=== PATIENT | male | born 1960 | race Caucasian/White ===

== ENCOUNTER 2020-12-19 09:05 | Outpatient (REF) | payer OTHER, SELFPAY ==
[2020-12-19 10:46] LABS: MANUAL DIFF FLAG NO
[2020-12-19 11:12] LABS: Basophils Percent Auto 0.4 % (0-2); Eosinophils Absolute Auto 0.1 X10*3/uL (0.0-0.4); Eosinophils Percent Auto 0.8 % (0-4); Hematocrit 44.3 % (42-52); Hemoglobin 14.1 g/dl (14.0-18.0); Imm Gran Abs Auto 0.04 X10*3/uL (0.00-0.03); Imm Gran Pct Auto 0.4 % (0.0-0.4); Lymphocytes Absolute Auto 1.4 X10*3/uL (1.2-4.9); Mean Corpuscular HGB Conc 31.8 g/dl (31.0-36.0); Mean Corpuscular Hemoglobin 29.9 pg (27.0-33.0); Mean Corpuscular Volume 94.1 fL (80-98); Mean Platelet Volume 10.1 fL (9.4-12.4); Monocytes Absolute Auto 0.7 X10*3/uL (0.1-1.2); Monocytes Percent Auto 7.3 % (2-11); Neutrophils Absolute Auto 7.1 X10*3/uL (2.0-8.3); Neutrophils Percent Auto 76.1 % (45-73); Platelet Count 244 X10*3/uL (160-400); Red Blood Count 4.71 X10*6/uL (4.60-5.80); Red Cell Distribution Width 12.5 % (11.0-16.0); White Blood Count 9.3 X10*3/uL (4.8-10.8)
[2020-12-19 11:20] LABS: Alanine Aminotransferase 19 U/L (0-40); Albumin Level 4.4 g/dL (3.5-5.0); Alkaline Phosphatase 68 U/L (39-117); Anion Gap 11 (12-20); Aspartate Amino Transferase 18 U/L (5-37); Bilirubin Total 0.6 mg/dL (0.0-1.0); Blood Urea Nitrogen 16 mg/dL (9-16); Calcium 9.5 mg/dL (8.4-10.2); Carbon Dioxide 31 mmol/L (22-29); Chloride 103 mmol/L (96-108); Estimated Glomerular Filt Rate > 60; Glucose Random 115 mg/dL (60-115); Potassium 4.4 mmol/L (3.3-5.1); Sodium 141 mmol/L (135-145)
== END 2020-12-19 09:06 | disposition home or self-care (01) ==
LOC: HO.LAB 09:05
PROVIDERS: PCP Internal Medicine Medical Oncology; Visit Provider Physician Assistant
DX: R10.11 Right upper quadrant pain (principal); R74.01 Elevation of levels of liver transaminase levels; K64.9 Unspecified hemorrhoids; R14.3 Flatulence; Z79.899 Other long term (current) drug therapy
CPT/HCPCS: 36415; 80053; 85025; 99212

== ENCOUNTER → 2021-02-04 07:57 | Outpatient (BNVA) | payer OTHER, SELFPAY | PROVIDERS: Visit Provider Physician Assistant | DX: D12.6 Benign neoplasm of colon, unspecified (principal); R10.9 Unspecified abdominal pain | CPT/HCPCS: 99212 ==

== ENCOUNTER 2021-12-11 08:27 | Outpatient (REF) | payer SELFPAY | END 2021-12-11 08:28 | disposition home or self-care (01) | LOC: HO.HAP 08:27 | PROVIDERS: Visit Provider Internal Medicine Medical Oncology | DX: Z13.89 Encounter for screening for other disorder (principal) ==

== ENCOUNTER 2021-12-28 07:03 | Outpatient (REF) | payer OTHER, SELFPAY ==
[2021-12-28 07:12] LABS: MANUAL DIFF FLAG NO
[2021-12-28 08:04] LABS: Basophils Percent Auto 0.6 % (0-2); Eosinophils Absolute Auto 0.1 X10*3/uL (0.0-0.4); Eosinophils Percent Auto 2.1 % (0-4); Hematocrit 42.3 % (42.0-52.0); Hemoglobin 13.6 g/dl (14.0-18.0); Imm Gran Abs Auto 0.02 X10*3/uL (0.00-0.03); Imm Gran Pct Auto 0.3 % (0.0-0.4); Lymphocytes Absolute Auto 1.9 X10*3/uL (1.2-4.9); Lymphocytes Percent Auto 27.7 % (20-40); Mean Corpuscular HGB Conc 32.2 g/dl (31.0-36.0); Mean Corpuscular Hemoglobin 29.5 pg (27.0-33.0); Mean Corpuscular Volume 91.8 fL (80.0-98.0); Monocytes Absolute Auto 0.5 X10*3/uL (0.1-1.2); Monocytes Percent Auto 6.6 % (2-11); Neutrophils Absolute Auto 4.3 x10*3/uL (2.0-8.3); Neutrophils Percent Auto 62.7 % (45-73); Platelet Count 249 X10*3/uL (160-400); Red Blood Count 4.61 X10*6/uL (4.60-5.80); Red Cell Distribution Width 12.4 % (11.0-16.0); White Blood Count 6.8 X10*3/uL (4.8-10.8)
[2021-12-28 08:21] LABS: Alanine Aminotransferase 20 U/L (0-40); Albumin Level 4.1 g/dL (3.5-5.0); Alkaline Phosphatase 68 U/L (39-117); Anion Gap 10 (12-20); Aspartate Amino Transferase 16 U/L (5-37); Bilirubin Total 0.7 mg/dL (0.0-1.0); Blood Urea Nitrogen 15 mg/dL (9-16); Calcium 9.6 mg/dL (8.4-10.2); Carbon Dioxide 32 mmol/L (22-29); Chloride 104 mmol/L (96-108); Cholesterol 185 mg/dL; Estimated Glomerular Filt Rate > 60; Glucose Fasting 115 mg/dL (60-99); HDL Cholesterol 52 mg/dL; LDL Cholesterol Calculated 115 mg/dl; Potassium 4.1 mmol/L (3.3-5.1); Sodium 142 mmol/L (135-145); Total Protein 6.8 g/dL (6.5-8.0); Triglycerides 94 mg/dL
[2021-12-28 08:29] LABS: Estimated Average Glucose 120 mg/dL; Hemoglobin A1c % 5.8 %
[2021-12-28 09:25] LABS: Creatinine Urine 136.24 mg/dL; Microalbum/Creatinine Ratio Ur 6.6 ug/mg cr
== END 2021-12-28 07:04 | disposition home or self-care (01) ==
LOC: HO.LAB 07:03
PROVIDERS: PCP Internal Medicine Medical Oncology; Visit Provider Internal Medicine Medical Oncology
DX: I10 Essential (primary) hypertension (principal); R73.9 Hyperglycemia, unspecified; E78.5 Hyperlipidemia, unspecified
CPT/HCPCS: 36415; 80053; 80061; 82043; 83036; 85025

== ENCOUNTER 2022-02-08 07:16 | Outpatient (REF) | payer OTHER, SELFPAY ==
[2022-02-08 08:56] LABS: Free T4 (Free Thyroxine) 1.01 ng/dL (0.71-1.85); Thyroid Stimulating Hormone 0.67 uIU/mL (0.32-4.0)
== END 2022-02-08 07:17 | disposition home or self-care (01) ==
LOC: HO.LAB 07:16
PROVIDERS: PCP Internal Medicine Medical Oncology; Visit Provider Internal Medicine Medical Oncology
DX: I10 Essential (primary) hypertension (principal); N40.1 Benign prostatic hyperplasia with lower urinary tract symptoms; E78.5 Hyperlipidemia, unspecified
CPT/HCPCS: 36415; 84439; 84443

== ENCOUNTER 2022-04-19 07:01 | Outpatient (REF) | payer OTHER, SELFPAY ==
[2022-04-19 07:14] LABS: MANUAL DIFF FLAG NO
[2022-04-19 07:52] LABS: Basophils Percent Auto 0.5 % (0-2); Eosinophils Absolute Auto 0.2 X10*3/uL (0.0-0.4); Eosinophils Percent Auto 2.3 % (0-4); Hematocrit 43.1 % (42.0-52.0); Hemoglobin 14.1 g/dl (14.0-18.0); Imm Gran Abs Auto 0.01 X10*3/uL (0.00-0.03); Imm Gran Pct Auto 0.2 % (0.0-0.4); Lymphocytes Percent Auto 30.5 % (20-40); Mean Corpuscular HGB Conc 32.7 g/dl (31.0-36.0); Mean Corpuscular Hemoglobin 30.3 pg (27.0-33.0); Mean Corpuscular Volume 92.5 fL (80.0-98.0); Mean Platelet Volume 10.2 fL (9.4-12.4); Monocytes Absolute Auto 0.5 X10*3/uL (0.1-1.2); Monocytes Percent Auto 7.1 % (2-11); Neutrophils Percent Auto 59.4 % (45-73); Platelet Count 220 X10*3/uL (160-400); Red Blood Count 4.66 X10*6/uL (4.60-5.80); Red Cell Distribution Width 12.6 % (11.0-16.0); White Blood Count 6.7 X10*3/uL (4.8-10.8)
[2022-04-19 08:40] LABS: Alanine Aminotransferase 18 U/L (0-40); Albumin Level 4.2 g/dL (3.5-5.0); Alkaline Phosphatase 63 U/L (39-117); Anion Gap 14 (12-20); Aspartate Amino Transferase 21 U/L (5-37); Bilirubin Total 0.7 mg/dL (0.0-1.0); Blood Urea Nitrogen 17 mg/dL (9-16); Calcium 8.9 mg/dL (8.4-10.2); Carbon Dioxide 30 mmol/L (22-29); Chloride 101 mmol/L (96-108); Cholesterol 208 mg/dL; Estimated Glomerular Filt Rate > 60; Glucose Fasting 113 mg/dL (60-99); HDL Cholesterol 53 mg/dL; LDL Cholesterol Calculated 128 mg/dl; Potassium 4.3 mmol/L (3.3-5.1); Sodium 141 mmol/L (135-145); Total Protein 6.9 g/dL (6.5-8.0); Triglycerides 137 mg/dL
[2022-04-19 09:01] LABS: Prostate Specific Antigen 1.83 ng/mL (<0.05-4.0)
== END 2022-04-19 07:02 | disposition home or self-care (01) ==
LOC: HO.LAB 07:01
PROVIDERS: PCP Internal Medicine Medical Oncology; Visit Provider Internal Medicine Medical Oncology
DX: I10 Essential (primary) hypertension (principal); N40.1 Benign prostatic hyperplasia with lower urinary tract symptoms; E78.5 Hyperlipidemia, unspecified; Z12.5 Encounter for screening for malignant neoplasm of prostate
CPT/HCPCS: 36415; 80053; 80061; 84153; 85025

== ENCOUNTER 2022-11-28 23:05 | Emergency (ER) | payer OTHER, SELFPAY ==
[2022-11-28 23:40] VITALS: BP 163/73; PULSE 70; RESP 16; TEMP 36.6; O2SAT 96; BMI 23.0
--- NOTE | 2022-11-29 02:18 | PC.NURSE ---
Pt presents for evaluation of reddened areas on both elbows that is itchy. Has an ongoing complaint of red spots on his anterior torso for approximatley 1 yr. Has been to his PCP for evaluation and has an appt with Derm set up for December 16. Has been applying Triamcinolone Acetone cream to the affected areas without change. Has also completed a recent course of doxycycline with no change. Denies any other complaints/concerns. No known contact with any inscects or ticks.
--- NOTE | 2022-11-29 02:33 | ED.SKABFB ---
HPI - Skin/Abscess/Foreign Bdy General Chief complaint: Skin/Abscess/Foreign Body Stated complaint: Red spots on elbow and chest Time Seen by Provider: 11/29/22 02:05 Source: patient Mode of arrival: ambulatory Limitations: no limitations History of Present Illness HPI narrative: Patient came here with chronic rash on his elbow and trunk area seen his PCP on triamcinolone steroid cream. Plan to see insurance case manager has rash on the elbow which is more red no itching Related Data Home Medications Medication Instructions Recorded Confirmed tamsulosin 0.4 mg capsule 0.4 mg PO DAILY 12/19/20 02/04/21 Previous Rx's Medication Instructions Recorded hydrocortisone 2.5 % topical cream 1 appl [place] BID PRN hemorrhoids #30 12/19/20 with perineal applicator grams (Proctozone-HC) docusate sodium 100 mg capsule 200 mg PO BEDTIME 30 days #60 caps 06/07/21 (Colace) methylcellulose (laxative) 500 mg 1,000 mg PO DAILY 30 days #60 tabs 06/07/21 tablet simethicone 125 mg chewable tablet 125 mg PO TID-QID PRN abdominal 06/07/21 (Gas Relief (simethicone)) distention #90 tabs tacrolimus 0.03 % topical ointment 1 appl topical BID #30 grams 11/29/22 Allergies Allergy/AdvReac Type Severity Reaction Status Date / Time bee pollen [BEE STINGS] AdvReac Severe Anaphylaxis Verified 11/28/22 23:53 Review of Systems Review of Systems: Yes all other systems are reviewed and are negative PMFSH Past Medical History Medical History Abdominal pain Flatulence Hemorrhoids Tubular adenoma of colon Social History Social History Household Members: None Alcohol intake: never Advance Directives: No Advance Directives Information Provided: Yes Current occupational status: employed Current occupation: [employer] Physical Exam Vital Signs: Vital Signs: Last Vital Signs Temp 97.7 F 11/29/22 02:38 Pulse 54 11/29/22 02:38 Resp 19 11/29/22 02:38 BP 159/91 H 11/29/22 02:38 Pulse Ox 99 11/29/22 02:38 O2 Del Method Room Air 11/29/22 02:38 BMI result Body Mass Index 23.0 Appearance: Alert. Oriented X3. No acute distress. ENT: Pharynx normal. Oral Mucosa moist Neck: Normal inspection. Neck supple. CVS: Normal heart rate and rhythm. Pulses normal. Respiratory: No respiratory distress. Equal air entry bilateral, no wheezing/rales/rhonchi Skin: Skin warm and dry. Normal skin color. Normal skin turgor. Lichen planus rash on the trunk and the elbow Extremities: No lower extremity edema. Neuro: Oriented X 3. Medical Decision Making Medical Decision Making [facility] Narrative: Patient with chronic dermatitis/lichen planus rash for discharge patient on tacrolimus ointment along with advised to continue triamcinolone on fresh erythematous area patient is supposed to follow-up with insurance case manager Discharge Plan Discharge Clinical Impression: Lichen planus Patient Disposition: Home, Self-Care Instructions: Dermatitis (ED) Additional Instructions: Likely you have lichen planus rash on your chest Apply the ointment as prescribed twice daily on the old lesions Use triamcinolone ointment which was provided by the PCP on fresh red lesions twice a day till heels Prescriptions: New tacrolimus 0.03 % ointment 1 appl topical BID Qty: 30 0RF No Action simethicone [Gas Relief (simethicone)] 125 mg tablet,chewable 125 mg PO TID-QID PRN (Reason: abdominal distention) Qty: 90 3RF docusate sodium [Colace] 100 mg capsule 200 mg PO BEDTIME 30 Days Qty: 60 3RF methylcellulose (laxative) 500 mg tablet 1,000 mg PO DAILY 30 Days Qty: 60 3RF tamsulosin 0.4 mg capsule 0.4 mg PO DAILY hydrocortisone [Proctozone-HC] 2.5 % cream with perineal applicator 1 appl VA BID PRN (Reason: hemorrhoids) Qty: 30 3RF Rx Instructions: apply VA BID prn
[2022-11-29 02:38] VITALS: BP 159/91; PULSE 54; RESP 19; TEMP 36.5; O2SAT 99
== END 2022-11-29 03:01 | disposition home or self-care (01) ==
PROVIDERS: Emergency Provider Internal Medicine; PCP Internal Medicine Medical Oncology
DX: L43.9 Lichen planus, unspecified (principal)
CPT/HCPCS: 99283; 99284

== ENCOUNTER 2023-03-04 07:33 | Outpatient (AMB) | payer OTHER, SELFPAY ==
--- NOTE | 2023-03-04 07:44 | A.OFFVIS_ITS ---
Intake Vital Signs 03/04/23 07:58 Height 6 ft 1 in Weight 171 lb BMI 22.6 BP 121/69 Blood Pressure Location Lt brachial Position Sitting Pulse 66 Intake Visit Reasons: follow up Intake Note: Follow up for abdominal pain. Patient cc: diarrhea on and off, gassy after eating, bloody hemorrhoids, patient needed suppositories to help with hemorrhoids. Straddle Bug Required: No Accompanied by: Self / Same As Patient Allergies bee pollen [BEE STINGS] Adverse Reaction (Severe, Verified 03/04/23 07:53) Anaphylaxis HPI HPI Comments History of Present Illness Details A 62 y/o male hx adenomas f/u with hemorrhoidal flare-he has been using rectal screen relief however requesting to have hemorrhoid removed He continues to have a lot of gas he is unsure what foods exactly in a worsen his symptoms. Occasional diarrhea however is able to manage it okay- His appetite is good Keeps himself busy he works 2 jobs He has no nausea, vomiting hematemesis, hematochezia fever chills Colonoscopy 2019- 3 adenomas- repeat 3 years [facility] Medical History Abdominal pain Flatulence Hemorrhoids Tubular adenoma of colon Social History Household Members: None Alcohol intake: never Current occupational status: employed Current occupation: [employer] Review of Systems Const All systems reviewed & are unremarkable except as noted in HPI and below Card Denies chest pain and Denies dyspnea Resp Denies dyspnea GI Denies abdominal pain, Reports bloating, Denies hematochezia, Reports excessive flatus, Denies heartburn, Denies nausea, Denies vomiting and Reports other (Hemorrhoids) Psych Reports anxiety Physical Exam Vital Signs: Last Vital Signs Pulse 66 03/04/23 07:58 BP 121/69 03/04/23 07:58 BMI result Body Mass Index 22.6 Const General: cooperative, healthy appearing, comfortable and no acute distress Orientation/consciousness: patient oriented x3 Limitations: no limitations Eyes Sclerae: sclerae normal Resp Effort & Inspection: normal respiratory effort and able to speak in complete sentences Auscultation: clear to auscultation bilaterally Cardio Rate: regular rate Rhythm: regular rhythm Heart sounds: S1 normal heart sound present and S2 normal heart sound present GI Palpation (GI): Soft to palpation and nontender Auscultation: normal bowel sounds Skin General skin exam: no rashes or lesions noted Neuro General: patient oriented x3 Extrem General: Yes full ROM Psych Appearance: grossly normal and well kempt Mental Status: mental status grossly normal Speech and movement: Normal speech and movement present and Clear speech present Affect: Anxious affect present Attitude: cooperative Thought process: Normal thought process present Thought content: Normal thought content present Results Reviewed Results Reviewed: 2019-Dr. Mcclendon 3 [facility] 2020 Diagnosis A.? Stomach, antrum, biopsy:? Antral-type mucosa with mild chronic inactive inflammation; no Helicobacter organisms seen. B.? Esophagus, distal, biopsy: - Cardiofundic-type mucosa with mild chronic inactive inflammation; no intestinal metaplasia seen. - No squamous epithelium seen. C.? Esophagus, proximal, biopsy:? Squamous epithelium within normal limits; no inflammation seen. COMMENT: Diagnostic features of eosinophilic esophagitis are not seen. Assessment & Plan Assessment & Plan (1) Hemorrhoids: Comment: Very pleasant Gent, Avoid straining, maintain high-fiber diet, Proctozone Surgical referral placed Code(s): K64.9 - Unspecified hemorrhoids (2) Tubular adenoma of colon: Comment: Colonoscopy 04/2020 shows 3 adenomas repeat colonoscopy 3 years [address] Mcclendon Code(s): D12.6 - Benign neoplasm of colon, unspecified (3) Flatulence: Comment: Simethicone, avoid culprits Code(s): R14.3 - Flatulence Plan: FODMAP literature given Plan Please call [phone]- if pt not available- please leave detailed call back info- TY- Colonoscopy- due-3 year REPEAT - Dr. MCCLENDON- MG Orders: Orders Colonoscopy - GI Use Only Today D12.6 - Benign neoplasm of colon, unspecified, K64.9 - Unspecified hemorrhoids Referrals General Surgery Referral K64.9 - Unspecified hemorrhoids Medications: New bisacodyl (Dulcolax (bisacodyl)) Take 4 tablets by mouth at 12:00pm the day before your procedure. 20 mg (4 x 5 mg) PO ONCE 1 day 4 tabs 0RF colonoscopy prep Z12.11 - Encounter for screening for malignant neoplasm of colon polyethylene glycol 3350 (Miralax) Take as directed by mouth the day before your procedure. 238 grams PO ONCE 1 day 238 grams 0RF polyethylene glycol 3350 (Miralax) 17 grams PO DAILY 30 days 510 grams 6RF Refilled hydrocortisone 2.5% (Proctozone-HC) apply [place] BID prn 1 appl [place] BID PRN 30 grams 3RF hemorrhoids simethicone (Gas Relief (simethicone)) 125 mg PO TID-QID PRN 90 tabs 3RF abdominal distention Patient Instructions: A somewhat anxious very pleasant 62 y/o male hx colon polyps- due for repeat colonoscopy- MG prep info given Avoid straining with hemorrhoids Surgical referral placed FODMAP Encouraged to call questions or concerns Appreciate the opportunity assist in care this pleasant Gent Coding Level of Care Code Est Pt Level 3 (02787) Diagnoses Hemorrhoids K64.9 Tubular adenoma of colon D12.6 Flatulence R14.3 Time Spent (min) 35
[2023-03-04 07:58] VITALS: BP 121/69; PULSE 66; BMI 22.6
== END 2023-03-04 08:58 | disposition home or self-care (01) ==
PROVIDERS: PCP Internal Medicine Medical Oncology; Visit Provider Physician Assistant
DX: K64.9 Unspecified hemorrhoids (principal); D12.6 Benign neoplasm of colon, unspecified; R14.3 Flatulence
CPT/HCPCS: 99213

== ENCOUNTER → 2023-03-04 07:33 | Outpatient (BNVA) | payer OTHER, SELFPAY | PROVIDERS: PCP Internal Medicine Medical Oncology; Visit Provider Physician Assistant | DX: D12.6 Benign neoplasm of colon, unspecified (principal); K64.9 Unspecified hemorrhoids; R14.3 Flatulence | CPT/HCPCS: 99212 ==

== ENCOUNTER 2023-04-11 07:05 | Outpatient (REF) | payer OTHER, SELFPAY ==
[2023-04-11 07:26] LABS: MANUAL DIFF FLAG NO
[2023-04-11 07:34] LABS: Basophils Percent Auto 0.4 % (0-2); Eosinophils Absolute Auto 0.2 X10*3/uL (0.0-0.4); Hematocrit 43.7 % (42.0-52.0); Hemoglobin 14.2 g/dl (14.0-18.0); Imm Gran Abs Auto 0.01 X10*3/uL (0.00-0.03); Imm Gran Pct Auto 0.1 % (0.0-0.4); Lymphocytes Absolute Auto 1.9 X10*3/uL (1.2-4.9); Lymphocytes Percent Auto 26.9 % (20-40); Mean Corpuscular HGB Conc 32.5 g/dl (31.0-36.0); Mean Corpuscular Hemoglobin 30.4 pg (27.0-33.0); Mean Corpuscular Volume 93.6 fL (80.0-98.0); Mean Platelet Volume 9.5 fL (9.4-12.4); Monocytes Absolute Auto 0.5 X10*3/uL (0.1-1.2); Monocytes Percent Auto 7.4 % (2-11); Neutrophils Absolute Auto 4.3 x10*3/uL (2.0-8.3); Neutrophils Percent Auto 62.2 % (45-73); Platelet Count 257 X10*3/uL (160-400); Red Blood Count 4.67 X10*6/uL (4.60-5.80); Red Cell Distribution Width 12.6 % (11.0-16.0); White Blood Count 6.9 X10*3/uL (4.8-10.8)
[2023-04-11 08:33] LABS: Alanine Aminotransferase 15 U/L (0-40); Alkaline Phosphatase 64 U/L (39-117); Anion Gap 12 (12-20); Aspartate Amino Transferase 17 U/L (5-37); Bilirubin Total 0.7 mg/dL (0.0-1.0); Blood Urea Nitrogen 19 mg/dL (9-16); Calcium 9.2 mg/dL (8.4-10.2); Carbon Dioxide 31 mmol/L (22-29); Chloride 104 mmol/L (96-108); Cholesterol 212 mg/dL (<200); Estimated Glomerular Filt Rate > 60; Glucose Fasting 109 mg/dL (60-99); HDL Cholesterol 57 mg/dL (>40); LDL Cholesterol Calculated 138 mg/dL (<100); Sodium 143 mmol/L (135-145); Total Protein 6.6 g/dL (6.5-8.0); Triglycerides 89 mg/dL (<150)
[2023-04-11 08:56] LABS: Prostate Specific Antigen 2.85 ng/mL (<0.05-4.0)
== END 2023-04-11 07:06 | disposition home or self-care (01) ==
LOC: HO.LAB 07:05
PROVIDERS: PCP Internal Medicine Medical Oncology; Visit Provider Internal Medicine Medical Oncology
DX: Z12.5 Encounter for screening for malignant neoplasm of prostate (principal); I10 Essential (primary) hypertension; N40.1 Benign prostatic hyperplasia with lower urinary tract symptoms; E78.5 Hyperlipidemia, unspecified
CPT/HCPCS: 36415; 80053; 80061; 84153; 85025

== ENCOUNTER 2023-05-14 08:24 | Day surgery (SDC) | payer OTHER, SELFPAY ==
[2023-05-12 12:43] VITALS: BMI 22.6
--- NOTE | 2023-05-13 11:40 | HO.ANESPROP2 ---
Documented by User: Pippa Becker NP 05/13/23 11:41 HPI - Anesthesia Eval Consult details Narrative: 63yo M for Colonoscopy PMFSH Active Problems Active Problems: All Active Problems (Updated 03/04/23 @ 08:54 by Juanita Cheney PA-C) Tubular adenoma of colon (Acute) Abdominal pain (Acute) Flatulence (Acute) Hemorrhoids (Acute) Past Medical History Medical History Hx of fracture of femur Hx of fracture of leg Tubular adenoma of colon Abdominal pain Flatulence Hemorrhoids Surgical History Surgical History History of ankle surgery History of surgery on lower extremity Hx of colonoscopy Social History Social History Household Members: None Alcohol intake: never Patient Tobacco Use Status: Former Tobacco user Are you DNR?: No Advance Directives: No Advance Directives Information Provided: Yes Nutrition Risks: No Nutritional Risk Current occupational status: employed Current occupation: [employer] Allergies Allergy/AdvReac Type Severity Reaction Status Date / Time bee pollen [BEE STINGS] AdvReac Severe Anaphylaxis Verified 05/14/23 09:35 Home Medications Medication Instructions Recorded Confirmed Last Taken Type tamsulosin 0.4 mg capsule 0.4 mg PO DAILY 12/19/20 05/14/23 Unknown History Exam Exam Date and Time: May 13, 2023 1140 Height,Weight and Vital Signs: Height 6 ft 1 in Weight 77.564 kg Pertinent Lab Results Pertinent Lab Results: Laboratory Tests 04/11/23 07:24 WBC 6.9 Hgb 14.2 Hct 43.7 Plt Count 257 Sodium 143 Potassium 4.0 Chloride 104 Carbon Dioxide 31 H BUN 19 H Creatinine 0.89 Assessment and Plan Assessment Anesthesia Assessment: Chart Reviewed Documented by User: Leonila Hill MD 05/14/23 10:13 [facility] Past Medical History Medical History Hx of fracture of femur Hx of fracture of leg Tubular adenoma of colon Abdominal pain Flatulence Hemorrhoids Family History Family history of problems with anesthesia: No Surgical History Surgical History History of ankle surgery History of surgery on lower extremity Hx of colonoscopy History of Problems with Anesthesia: No Social History Social History Household Members: None Alcohol intake: never Patient Tobacco Use Status: Former Tobacco user Are you DNR?: No Advance Directives: No Advance Directives Information Provided: Yes Nutrition Risks: No Nutritional Risk Current occupational status: employed Current occupation: [employer] Allergies Allergy/AdvReac Type Severity Reaction Status Date / Time bee pollen [BEE STINGS] AdvReac Severe Anaphylaxis Verified 05/14/23 09:35 Home Medications Medication Instructions Recorded Confirmed Last Taken Type tamsulosin 0.4 mg capsule 0.4 mg PO DAILY 12/19/20 05/14/23 Unknown History Exam Airway Mallampati Class: II TM Dist: >3cm Heart: rrr Lungs: cta Assessment and Plan Assessment Anesthesia Assessment: Anesthesia Plan Discussed Final Anesthetic Review Family History of Problems with Anesthesia: No History of Problems with Anesthesia: No NPO: Yes ASA Class: II Final Preanesthetic Review: No Changes in Pt Med Stat, Meds/Allgs Chart Reviewed, Consent Obtained/Reviewed and Anes Risks/Benef Reviewed Patient Risk: Low Procedure Risk: Low Anesthetic Plan Anesthetic Plan: MAC: Disposition: Standard PACU
[2023-05-14] MEDS: Lactated Ringers 1,000 ML 100 ML IVCONT (09:22)
--- NOTE | 2023-05-14 09:24 | MHC.SHP ---
Pre-Procedural Eval Section A Date of Service: 05/14/23 Section B Chief Complaint: Benign neoplasm of colon,hemorrhoids,flatulence Relevant Family History (Specify if Yes): No Relevant Social History: None Present Medications: see Short Stay Collaborative assessment Medical History: Significant History (Hx of fracture of femur Hx of fracture of leg Tubular adenoma of colon Abdominal pain Flatulence Hemorrhoids) History of Previous Operations: Relevant previous surgery/procedure and date(s) (History of ankle surgery History of surgery on lower extremity Hx of colonoscopy) Allergies: Allergies Allergy/AdvReac Type Severity Reaction Status Date / Time bee pollen [BEE STINGS] AdvReac Severe Anaphylaxis Verified 03/04/23 07:53 Review of Systems Sugical H&P ROS: Negative: Constitution, Cardiovascular, Respiratory, Neurological, Psychiatric, Hem-Onc, Allergic/Immunologic, Gastrointestinal, Genitourinary, Musculoskeletal, Integumentary, Endocrine and Eyes/Ears/Nose/Throat Exam Surgical H&P Exam: Normal: HEENT, Normal: Heart, Normal: Lungs, Normal: Extremities, Normal: Abdomen, Normal: Skin and Normal: Neurological Plan Diagnosis/Plan: Unchanged I have reviewed the history and physical and performed a pertinent physical examination on my patient. No changes have occurred unless specified. Time Spent With Patient Time: Total time managing care of this patient today ____ minutes.
[2023-05-14 09:32] VITALS: BP 159/87; PULSE 68; RESP 18; TEMP 36.6; O2SAT 100
--- NOTE | 2023-05-14 10:25 | P.OP_ITS ---
Operative Note Operative Note Date of Service: 05/14/23 Narrative: Operative Information Procedure Description: Colonoscopy Indication: hx of colon polyps Anesthesia: MAC COLONOSCOPY Instrument: Olympus variable stiffness pediatric scope 190L Colonoscopy Monitoring: Vital signs and clinical assessment, continuous EKG monitoring, Pulse oximetry, Carbon Dioxide monitoring and blood pressure monitoring were done throughout the procedure. Colon withdrawal time was 9 minutes. Procedure: The patient was placed in the left lateral decubitis position and pre-procedure medications were administered. After a digital rectal examination of the ano-rectum, the video colonoscope was inserted into the rectum and advanced through the colon to the cecum/TI. The colonoscope was slowly withdrawn in a retrograde panoramic fashion and the colon mucosa was carefully examined including a retroflexed view of the rectum. Findings and interventions are described below. Procedure Difficulty: easy Findings: Terminal Ileum-normal Cecum: x 2 sessile polyps 10-12 mm removed with cold snare, one area with oozing, and clip applied with hemostasis Ascending Colon: x 2 sessile polyps 10 mm noted, one removed with cold forceps and the other with cold snare Transverse Colon -normal Descending Colon:normal Sigmoid Colon: moderate diverticulosis Rectum: Retroflexion with small internal hemorrhoids, grade I Anorectum - normal Colon preparation: [place] Bowel Preparation Scale Right colon; 2 Transverse colon: 2 Left colon; 2 (0 = Unprepared colon segment with mucosa not seen due to solid stool that cannot be cleared. 1 = Portion of mucosa of the colon segment seen, but other areas of the colon segment not well seen due to staining, residual stool and/or opaque liquid. 2 = Minor amount of residual staining, small fragments of stool and/or opaque liquid, but mucosa of colon segment seen well. 3 = Entire mucosa of colon segment seen well with no residual staining, small fragments of stool or opaque liquid) Impression and Post Procedure Diagnosis: polyps internal hemorrhoids diverticular disease Plan: High fiber diet leaflet Avoid straining at stool, epsom salts and sitz bath, anusol supps or cream Repeat Colonoscopy in 2-3 years or earlier if clinically indicated Above findings were reviewed with the patient and relevant handouts were provided if indicated.
[2023-05-14 10:55] VITALS: BP 99/65; PULSE 55; RESP 17; TEMP 36.6; O2SAT 96
[2023-05-14 11:10] VITALS: BP 141/79; PULSE 60; RESP 16; O2SAT 99
[2023-05-14 11:25] VITALS: BP 137/77; PULSE 61; RESP 14; TEMP 36.4; O2SAT 99
== END 2023-05-14 11:48 | disposition home or self-care (01) ==
PROVIDERS: PCP Internal Medicine Medical Oncology; Visit Provider Internal Medicine Gastroenterology
PROC: 0DJD8ZZ Inspection of Lower Intestinal Tract, Via Natural or Artificial Opening Endoscopic (ICD-10-PCS; CPT 45378; principal; 2023-05-14 10:50)
DX: Z12.11 Encounter for screening for malignant neoplasm of colon (principal); Z86.010 Personal history of colon polyps; D12.0 Benign neoplasm of cecum; D12.2 Benign neoplasm of ascending colon; K57.30 Diverticulosis of large intestine without perforation or abscess without bleeding; K64.0 First degree hemorrhoids; R14.3 Flatulence
CPT/HCPCS: 45385; 45380; 88305

== ENCOUNTER → 2023-05-14 08:24 | Outpatient (BNV) | payer OTHER, SELFPAY | PROVIDERS: PCP Internal Medicine Medical Oncology; Visit Provider Internal Medicine Gastroenterology | DX: Z12.11 Encounter for screening for malignant neoplasm of colon (principal); Z86.010 Personal history of colon polyps; D12.0 Benign neoplasm of cecum; D12.2 Benign neoplasm of ascending colon; K57.30 Diverticulosis of large intestine without perforation or abscess without bleeding; K64.0 First degree hemorrhoids | CPT/HCPCS: 45380; 45385 ==

== ENCOUNTER 2023-05-28 07:44 | Outpatient (AMB) | payer OTHER, SELFPAY ==
[2023-05-28 07:58] VITALS: BP 141/85; PULSE 71; BMI 22.7
--- NOTE | 2023-05-28 07:58 | A.OFFVIS_ITS ---
Intake Vital Signs 05/28/23 07:58 Height 6 ft 1 in Weight 172 lb BMI 22.7 BP 141/85 H Blood Pressure Location Lt brachial Position Sitting Pulse 71 Intake Visit Reasons: S/p colon- Cruz Intake Note: Nicholas presents in the office as a follow up colonoscopy. CC: He states he is okay since his procedure. He does have some questions. He wants to know about the clips that were placed in! Deck Worker Required: No Allergies bee pollen [BEE STINGS] Adverse Reaction (Severe, Verified 05/28/23 07:59) Anaphylaxis Medication List - Last Reconciled 05/28/23 by Juanita Cheney PA-C docusate sodium (Colace) 200 mg (2 x 100 mg) PO BEDTIME 30 days hydrocortisone 2.5% (Proctozone-HC) 1 appl [place] BID PRN tacrolimus 0.03% 1 appl topical BID tamsulosin 0.4 mg PO DAILY HPI HPI Comments History of Present Illness Details A pleasant 63-year-old Gent follows up after recent colonoscopy with polypectomy. Many questions in regard to procedure Reviewed procedure report, pathology as well as recommendations He has no GI or general complaints [facility] Medical History Hx of fracture of femur Hx of fracture of leg Tubular adenoma of colon Abdominal pain Flatulence Hemorrhoids Surgical History History of ankle surgery History of surgery on lower extremity Hx of colonoscopy Social History Household Members: None Alcohol intake: never Patient Tobacco Use Status: Former Tobacco user Current occupational status: employed Current occupation: [employer] Physical Exam Vital Signs: Last Vital Signs Pulse 71 05/28/23 07:58 BP 141/85 H 05/28/23 07:58 BMI result Body Mass Index 22.7 Const General: cooperative, healthy appearing, comfortable and no acute distress Orientation/consciousness: patient oriented x3 Limitations: no limitations Neuro General: patient oriented x3 Psych Appearance: grossly normal and well kempt Mental Status: mental status grossly normal Speech and movement: Normal speech and movement present and Clear speech present Affect: normal affect Thought process: Normal thought process present Thought content: Normal thought content present Insight: Good insight present (Psych) Judgement: Good judgement present (Psych) Results Reviewed Results Reviewed: Impression and Post Procedure Diagnosis: polyps internal hemorrhoids diverticular disease Plan: High fiber diet leaflet Avoid straining at stool, epsom salts and sitz bath, anusol supps or cream Repeat Colonoscopy in 2-3 years or earlier if clinically indicated me: Nicholas Overton Age/Sex: 63/M Attending: Ahsan Cruz MD : 1960 Submitted by: Ahsan Cruz MD Copies to: Brandon Cabral MD MR #: [id number] Status: [facility] Collected: 05/14/23 Location: [facility] Received: 05/14/23 Diagnosis A. Colon, ascending, polypectomy: Tubular adenoma, multiple fragments; negative for high-grade dysplasia. B. Colon, cecum, polypectomy: Tubular adenoma, multiple fragments; negative for high-grade dysplasia. Clinical History Pre-Op Dx: History of polyps Post-Op Dx: Erosive gastritis, esophagitis, colon polyp, diverticulosis, internal hemorrhoids Microscopic Description Microscopic sections reviewed. Material Received A. Polyp ascending colon B. Polyp cecum Gross Description Received in 2 parts. Part A: Received in formalin labeled ?polyps ascending colon? are multiple glistening, semitranslucent, soft, singh and singh-pink irregular, rectangular and papular tissue fragments ranging from minute to 0.4 cm in greatest dimension which are submitted in toto in a single cassette labeled A. Part B: Received in formalin labeled ?polyp cecum? are several glistening, semitranslucent, soft, singh and singh-pink irregular, rectangular and papular tissue fragments ranging from minute to 1.2 cm in greatest dimension which are submitted in toto in a single cassette labeled B. CEDS Copies To Brandon Cabral MD [address] [place] [address], [address] [place], [place] [id number] Patient: Nicholas Overton Age/Sex: 63/M MR#: [id number] Page 1 of 2 Assessment & Plan Assessment & Plan (1) Sessile serrated polyp of colon: Comment: very pleasant gent hx adenomas Code(s): D12.6 - Benign neoplasm of colon, unspecified Plan: repeat colonoscopy 05/2026 (2) Tubular adenoma of colon: Comment: Colonoscopy 04/2020 shows 3 adenomas repeat colonoscopy 3 years 2022- again adenomas 94) 2022- repeat [address] Cruz Code(s): D12.6 - Benign neoplasm of colon, unspecified (3) Diverticulosis of colon: Code(s): K57.30 - Diverticulosis of large intestine without perforation or abscess without bleeding Plan: HFD ER protocol (4) Hemorrhoids: Comment: Very pleasant Gent, Avoid straining, maintain high-fiber diet, Proctozone Surgical referral placed Code(s): K64.9 - Unspecified hemorrhoids Plan: hFD Medications: Refilled hydrocortisone 2.5% (Proctozone-HC) apply [place] BID prn 1 appl [place] BID PRN 30 grams 3RF hemorrhoids Patient Instructions: Reviewed procedure report, pathology as well as recommendation Repeat asymptomatic colonoscopy 3 years Avoid straining with hemorrhoid Maintain high-fiber diet Diverticulosis/diverticulitis ER protocol discuss Questions answered to his satisfaction Encouraged to call with questions or concerns Appreciate the opportunity assist in the care of pleasant Gent Coding Level of Care Code Est Pt Level 3 (86867) Diagnoses Sessile serrated polyp of colon D12.6 Tubular adenoma of colon D12.6 Diverticulosis of colon K57.30 Hemorrhoids K64.9 Time Spent (min) 25
== END 2023-05-28 09:08 | disposition home or self-care (01) ==
PROVIDERS: PCP Internal Medicine Medical Oncology; Visit Provider Physician Assistant
DX: D12.6 Benign neoplasm of colon, unspecified (principal); K57.30 Diverticulosis of large intestine without perforation or abscess without bleeding; K64.9 Unspecified hemorrhoids
CPT/HCPCS: 99213

== ENCOUNTER → 2023-05-28 07:44 | Outpatient (BNVA) | payer OTHER, SELFPAY | PROVIDERS: PCP Internal Medicine Medical Oncology; Visit Provider Physician Assistant | DX: D12.2 Benign neoplasm of ascending colon (principal); D12.0 Benign neoplasm of cecum; K57.30 Diverticulosis of large intestine without perforation or abscess without bleeding; K64.9 Unspecified hemorrhoids; Z98.890 Other specified postprocedural states | CPT/HCPCS: 99212 ==

== ENCOUNTER 2023-08-15 08:02 | Outpatient (REF) | payer OTHER, SELFPAY ==
[2023-08-15 08:16] LABS: MANUAL DIFF FLAG NO
[2023-08-15 08:43] LABS: Basophils Absolute Auto 0.1 X10*3/uL (0.0-0.2); Basophils Percent Auto 0.8 % (0-2); Eosinophils Absolute Auto 0.2 X10*3/uL (0.0-0.4); Eosinophils Percent Auto 2.5 % (0-4); Hematocrit 42.7 % (42.0-52.0); Hemoglobin 13.9 g/dl (14.0-18.0); Imm Gran Abs Auto 0.01 X10*3/uL (0.00-0.03); Imm Gran Pct Auto 0.2 % (0.0-0.4); Lymphocytes Percent Auto 31.5 % (20-40); Mean Corpuscular HGB Conc 32.6 g/dl (31.0-36.0); Mean Corpuscular Hemoglobin 30.5 pg (27.0-33.0); Mean Corpuscular Volume 93.6 fL (80.0-98.0); Mean Platelet Volume 10.3 fL (9.4-12.4); Monocytes Absolute Auto 0.5 X10*3/uL (0.1-1.2); Monocytes Percent Auto 7.8 % (2-11); Neutrophils Absolute Auto 3.7 x10*3/uL (2.0-8.3); Neutrophils Percent Auto 57.2 % (45-73); Platelet Count 221 X10*3/uL (160-400); Red Blood Count 4.56 X10*6/uL (4.60-5.80); Red Cell Distribution Width 12.4 % (11.0-16.0); White Blood Count 6.4 X10*3/uL (4.8-10.8)
[2023-08-15 08:57] LABS: Appearance Urine Clear; Color Urine Yellow; Glucose Urine UA Negative (Negative); Leukocyte Esterase Urine Trace (Negative); Nitrite Urine Negative (Negative); UMIC TRIGGER UA YES; Urine Blood Negative (Negative); Urine Ketones Negative (Negative); Urine Protein Negative (Neg-Trace)
[2023-08-15 09:09] LABS: Alanine Aminotransferase 14 U/L (0-40); Albumin Level 4.1 g/dL (3.5-5.0); Alkaline Phosphatase 66 U/L (39-117); Anion Gap 10 (12-20); Aspartate Amino Transferase 17 U/L (5-37); Bilirubin Total 0.6 mg/dL (0.0-1.0); Blood Urea Nitrogen 18 mg/dL (9-16); Calcium 9.1 mg/dL (8.4-10.2); Carbon Dioxide 30 mmol/L (22-29); Chloride 107 mmol/L (96-108); Cholesterol 193 mg/dL (<200); Estimated Glomerular Filt Rate > 60; Glucose Fasting 101 mg/dL (60-99); HDL Cholesterol 55 mg/dL (>40); LDL Cholesterol Calculated 118 mg/dL (<100); Potassium 3.8 mmol/L (3.3-5.1); Sodium 143 mmol/L (135-145); Total Protein 6.6 g/dL (6.5-8.0); Triglycerides 101 mg/dL (<150)
[2023-08-15 09:20] LABS: Bacteria Urine None Seen (None Seen); Hyaline Casts Urine 0-2 /LPF (0-2); RBC Urine 0-2 /HPF (0-2); Squamous Epithelial Cell Urine 0-2 /HPF (0-2); WBC Urine 0-5 /HPF (0-5)
[2023-08-15 09:31] LABS: Prostate Specific Antigen 2.97 ng/mL (<0.05-4.0)
== END 2023-08-15 08:03 | disposition home or self-care (01) ==
LOC: HO.LAB 08:02
PROVIDERS: PCP Internal Medicine Medical Oncology; Visit Provider Internal Medicine Medical Oncology
DX: Z00.00 Encounter for general adult medical examination without abnormal findings (principal); I10 Essential (primary) hypertension; N40.1 Benign prostatic hyperplasia with lower urinary tract symptoms; E78.5 Hyperlipidemia, unspecified
CPT/HCPCS: 36415; 80053; 80061; 81001; 81003; 84153; 85025

== ENCOUNTER 2023-12-19 06:59 | Outpatient (REF) | payer OTHER, SELFPAY ==
[2023-12-19 07:11] LABS: MANUAL DIFF FLAG NO
[2023-12-19 07:52] LABS: Basophils Absolute Auto 0.1 X10*3/uL (0.0-0.2); Basophils Percent Auto 0.7 % (0-2); Eosinophils Absolute Auto 0.2 X10*3/uL (0.0-0.4); Eosinophils Percent Auto 2.2 % (0-4); Hematocrit 44.8 % (42.0-52.0); Hemoglobin 14.4 g/dl (14.0-18.0); Imm Gran Abs Auto 0.03 X10*3/uL (0.00-0.03); Imm Gran Pct Auto 0.4 % (0.0-0.4); Lymphocytes Absolute Auto 2.1 X10*3/uL (1.2-4.9); Lymphocytes Percent Auto 28.4 % (20-40); Mean Corpuscular HGB Conc 32.1 g/dl (31.0-36.0); Mean Corpuscular Hemoglobin 30.2 pg (27.0-33.0); Mean Corpuscular Volume 93.9 fL (80.0-98.0); Mean Platelet Volume 10.2 fL (9.4-12.4); Monocytes Absolute Auto 0.6 X10*3/uL (0.1-1.2); Monocytes Percent Auto 8.3 % (2-11); Neutrophils Absolute Auto 4.4 x10*3/uL (2.0-8.3); Platelet Count 231 X10*3/uL (160-400); Red Blood Count 4.77 X10*6/uL (4.60-5.80); Red Cell Distribution Width 12.6 % (11.0-16.0); White Blood Count 7.4 X10*3/uL (4.8-10.8)
[2023-12-19 08:24] LABS: Alanine Aminotransferase 17 U/L (0-40); Alkaline Phosphatase 64 U/L (39-117); Anion Gap 14 (12-20); Aspartate Amino Transferase 21 U/L (5-37); Bilirubin Total 0.7 mg/dL (0.0-1.0); Blood Urea Nitrogen 15 mg/dL (9-16); Calcium 9.7 mg/dL (8.4-10.2); Carbon Dioxide 28 mmol/L (22-29); Chloride 105 mmol/L (96-108); Cholesterol 199 mg/dL (<200); Estimated Glomerular Filt Rate > 60; Glucose Random 100 mg/dL (60-115); HDL Cholesterol 50 mg/dL (>40); LDL Cholesterol Calculated 135 mg/dL (<100); Potassium 4.4 mmol/L (3.3-5.1); Sodium 143 mmol/L (135-145); Total Protein 6.8 g/dL (6.5-8.0); Triglycerides 73 mg/dL (<150)
== END 2023-12-19 07:00 | disposition home or self-care (01) ==
LOC: HO.LAB 06:59
PROVIDERS: PCP Internal Medicine Medical Oncology; Visit Provider Internal Medicine Medical Oncology
DX: I10 Essential (primary) hypertension (principal); D36.9 Benign neoplasm, unspecified site; E78.5 Hyperlipidemia, unspecified
CPT/HCPCS: 36415; 80053; 80061; 85025

== ENCOUNTER 2024-01-17 19:49 | Emergency (ER) | payer OTHER, SELFPAY ==
[2024-01-17 20:06] VITALS: BP 140/73; PULSE 75; RESP 18; TEMP 37.2; O2SAT 97; BMI 22.4
[2024-01-18 00:28] VITALS: BP 161/80; PULSE 60; RESP 16; TEMP 36.8; O2SAT 100
--- NOTE | 2024-01-18 00:44 | ED_ITS ---
HPI - Eye Problem General Chief complaint: Eye Problems Stated complaint: LEFT EYE IRRATATION Time Seen by Provider: 01/18/24 00:44 Source: patient Mode of arrival: ambulatory Limitations: no limitations History of Present Illness ED Provider: ting ART Narrative: Patient apparently cleaning the old window under drug from the window fell on his eye earlier today complaining of redness in the left eye with blurred vision and foreign body sensation with photosensitivity no prior history in the past Related Data Home Medications ?Medication ?Instructions ?Recorded ?Confirmed tamsulosin 0.4 mg capsule 0.4 mg PO DAILY 12/19/20 05/14/23 Previous Rx's ?Medication ?Instructions ?Recorded docusate sodium 100 mg capsule 200 mg (2 x 100 mg) PO BEDTIME 30 06/07/21 (Colace) days #60 caps tacrolimus 0.03 % topical ointment 1 appl topical BID #30 grams 11/29/22 hydrocortisone 2.5 % topical cream [address] BID PRN hemorrhoids #30 05/28/23 with perineal applicator grams (Proctozone-HC) ketotifen fumarate 0.025 % (0.035 1 drp ophthalmic-Left Q8H PRN pain 01/18/24 %) eye drops (Alaway) #5 mL tobramycin 0.3 % eye drops 1 drp ophthalmic-Left Q4H #5 mL 01/18/24 Allergies Allergy/AdvReac Type Severity Reaction Status Date / Time bee pollen [BEE STINGS] AdvReac Severe Anaphylaxis Verified 01/17/24 20:08 Review of Systems 2 Review of Systems: Yes all other systems are reviewed and are negative PMFSH Past Medical History Medical History Hx of fracture of femur Hx of fracture of leg Tubular adenoma of colon Abdominal pain Flatulence Hemorrhoids Surgical History History of ankle surgery History of surgery on lower extremity Hx of colonoscopy Social History Social History Household Members: None Alcohol intake: never Patient Tobacco Use Status: Former Tobacco user Advance Directives: No Advance Directives Information Provided: No Do you have a plan to hurt others: No Plan Current occupational status: employed Current occupation: [employer] Physical Exam 2 Vital Signs: Vital Signs: Last Vital Signs Temp 98.2 F 01/18/24 00:28 Pulse 60 01/18/24 00:28 Resp 16 01/18/24 00:28 BP 161/80 H 01/18/24 00:28 Pulse Ox 100 01/18/24 00:28 O2 Del Method Room Air 01/17/24 20:06 BMI result Body Mass Index 22.4 Eyes: General: appearance normal, both eyes and all related structures V isual Cabral: normal visual cabral by confrontation Alignment and Position: a lignment normal Eyelids: Yes eyelid abnormality (Swelling of left eyelid) Conjunctivae: conjunctival abnormal (Injected) left Sclerae: sclerae normal Corneas: corneas abnormal (Abrasion in upper part of the L cornea) on the left and fluorescein used EOM: EOMs intact bilaterally Eyes/upper lids images: 1. Corneal abrasion Medical Decision Making Medical Decision Making MDM Narrative: Patient with left corneal abrasion tobramycin eye drops was placed and will give her ketoprofen eyedrops for the pain Discharge Plan Discharge Clinical Impression: Corneal abrasion, left, Acute conjunctivitis, left eye Patient Disposition: Home, Self-Care Instructions: Corneal Abrasion (ED), Conjunctivitis (ED) Additional Instructions: Use tobramycin eye drops 1 drop every 4-6 hours till clear Eyedrops for pain as prescribed Your corneal abrasion should heal in next 3-5 days Prescriptions: New ketotifen fumarate [Alaway] 0.025 % (0.035 %) drops 1 drp ophthalmic-Left Q8H PRN (Reason: pain) Qty: 5 0RF Rx Instructions: do not exceed 2 doses in a 24 hour period tobramycin 0.3 % drops 1 drp ophthalmic-Left Q4H Qty: 5 0RF No Action docusate sodium [Colace] 100 mg capsule 200 mg PO BEDTIME 30 Days Qty: 60 3RF tacrolimus 0.03 % ointment 1 appl topical BID Qty: 30 0RF tamsulosin 0.4 mg capsule 0.4 mg PO DAILY hydrocortisone [Proctozone-HC] 2.5 % cream with perineal applicator [address] BID PRN (Reason: hemorrhoids) Qty: 30 3RF Rx Instructions: apply CT BID prn Stand Alone Forms: Work/School Release Print Language: Italian
[2024-01-18 01:32] VITALS: BP 161/80; PULSE 60; RESP 16; TEMP 36.8; O2SAT 100
== END 2024-01-18 01:33 | disposition home or self-care (01) ==
PROVIDERS: Emergency Provider Internal Medicine; PCP Internal Medicine Medical Oncology
DX: S05.02XA Injury of conjunctiva and corneal abrasion without foreign body, left eye, initial encounter (principal); X58.XXXA Exposure to other specified factors, initial encounter; H10.32 Unspecified acute conjunctivitis, left eye; Y93.E9 Activity, other interior property and clothing maintenance; Y92.009 Unspecified place in unspecified non-institutional (private) residence as the place of occurrence of the external cause; Y99.9 Unspecified external cause status
CPT/HCPCS: 99283; 99284

== ENCOUNTER 2024-04-16 07:15 | Outpatient (REF) | payer OTHER, SELFPAY ==
[2024-04-16 07:44] LABS: MANUAL DIFF FLAG NO
[2024-04-16 08:21] LABS: Basophils Percent Auto 0.6 % (0-2); Eosinophils Absolute Auto 0.2 X10*3/uL (0.0-0.4); Eosinophils Percent Auto 2.2 % (0-4); Hemoglobin 14.6 g/dl (14.0-18.0); Imm Gran Abs Auto 0.02 X10*3/uL (0.00-0.03); Imm Gran Pct Auto 0.3 % (0.0-0.4); Lymphocytes Absolute Auto 1.8 X10*3/uL (1.2-4.9); Lymphocytes Percent Auto 25.4 % (20-40); Mean Corpuscular HGB Conc 32.4 g/dl (31.0-36.0); Mean Corpuscular Hemoglobin 30.6 pg (27.0-33.0); Mean Corpuscular Volume 94.3 fL (80.0-98.0); Mean Platelet Volume 9.8 fL (9.4-12.4); Monocytes Absolute Auto 0.6 X10*3/uL (0.1-1.2); Monocytes Percent Auto 7.9 % (2-11); Neutrophils Absolute Auto 4.6 x10*3/uL (2.0-8.3); Neutrophils Percent Auto 63.6 % (45-73); Platelet Count 240 X10*3/uL (160-400); Red Blood Count 4.77 X10*6/uL (4.60-5.80); Red Cell Distribution Width 12.7 % (11.0-16.0); White Blood Count 7.3 X10*3/uL (4.8-10.8)
[2024-04-16 08:44] LABS: Alanine Aminotransferase 26 U/L (0-40); Albumin Level 4.1 g/dL (3.5-5.0); Alkaline Phosphatase 62 U/L (39-117); Anion Gap 10 (12-20); Aspartate Amino Transferase 25 U/L (5-37); Bilirubin Total 0.8 mg/dL (0.0-1.0); Blood Urea Nitrogen 14 mg/dL (9-16); Calcium 9.4 mg/dL (8.4-10.2); Carbon Dioxide 32 mmol/L (22-29); Chloride 105 mmol/L (96-108); Cholesterol 211 mg/dL (<200); Estimated Glomerular Filt Rate > 60; Glucose Random 106 mg/dL (60-115); HDL Cholesterol 59 mg/dL (>40); LDL Cholesterol Calculated 141 mg/dL (<100); Potassium 4.1 mmol/L (3.3-5.1); Sodium 143 mmol/L (135-145); Total Protein 6.6 g/dL (6.5-8.0); Triglycerides 57 mg/dL (<150)
[2024-04-16 09:05] LABS: Prostate Specific Antigen 3.56 ng/mL (<0.05-4.0)
== END 2024-04-16 07:16 | disposition home or self-care (01) ==
LOC: HO.LAB 07:15
PROVIDERS: PCP Internal Medicine Medical Oncology; Visit Provider Internal Medicine Medical Oncology
DX: I10 Essential (primary) hypertension (principal); N40.1 Benign prostatic hyperplasia with lower urinary tract symptoms; E78.5 Hyperlipidemia, unspecified
CPT/HCPCS: 36415; 80053; 80061; 84153; 85025

== ENCOUNTER 2024-09-05 10:05 | Outpatient (AMB) | payer OTHER, SELFPAY ==
[2024-09-05 10:11] VITALS: BMI 22.5
--- NOTE | 2024-09-05 10:11 | MHC.OFFVIS ---
Vital Signs 09/05/24 10:11 Height 6 ft 1 in Weight 170 lb 6 oz BMI 22.5 Intake Visit Reasons: large hemorroid Intake Note: This patient presents for an assessment for large hemorrhoid. Pt c/o; Onset 8 months, reports rectal bleeding when wiping. 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 He says that he has noticed hemorrhoids for over a year now. He describes episodes of pain and swelling with this. He says that the hemorrhoids come out frequently especially with bowel movements. He denies being constipated He says he has been using this a steroid cream which does not seem to help much . He says that he feels that the hemorrhoids have been swollen for a year now. [facility] Medical History (Updated 09/05/24 @ 10:38 by Mark Kemp MD) Hemorrhoids with complication Hx of fracture of femur Hx of fracture of leg Tubular adenoma of colon Abdominal pain Flatulence Hemorrhoids Surgical History History of ankle surgery History of surgery on lower extremity Hx of colonoscopy Social History Household Members: None Alcohol intake: never Patient Tobacco Use Status: Former Tobacco user Current occupational status: employed Current occupation: [employer] Review of Systems Const Denies chills and Denies fever(s) Card Denies chest pain, Denies dyspnea and Denies dyspnea on exertion Resp Denies cough, Denies dyspnea and Denies dyspnea on exertion GI Reports hematochezia and Denies change in bowel habits Denies hematuria and Denies difficulty urinating Musc Denies back pain and Denies limited range of motion Neuro Denies focal weakness and Denies convulsions Psych Denies depression and Denies mood swings Physical Exam Vital Signs: BMI result Body Mass Index 22.5 Const General: comfortable and no acute distress Orientation/consciousness: patient oriented x3 Neck Neck: Yes no lymphadenopathy Resp Auscultation: clear to auscultation bilaterally Cardio Rhythm: regular rhythm GI Other: Rectal exam shows large mixed internal external hemorrhoids with prolapse, some tenderness, anoscopy and digital exam not done Palpation (GI): Soft to palpation, nontender and no guarding Neuro General: patient oriented x3 Assessment & Plan Assessment & Plan (1) Hemorrhoids with complication: Code(s): K64.8 - Other hemorrhoids Category: Medical Plan: He has a large internal external hemorrhoidal column that appears to have frequent prolapse, swelling and discomfort. I did explain to him the option of proceeding with hemorrhoidectomy. I explained the technique of exam under anesthesia and hemorrhoidectomy. I reviewed the risks including but not limited to bleeding, infections, postop pain, as well as the benefits and alternatives I reviewed with him what to expect postoperatively. He does state that he does not understand why he will have significant pain postop. I tried to explain to him that he may not be able to return to work for about a week because of the pain and discomfort and he says that he feels that this may be realistic for him as he says he needs to work. 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 I gave him my card and instructed to call me if he has questions or if he plans to proceed. I also explained to him the benefits of avoiding straining and constipation. Coding Level of Care Code New Pt Level 3 (20451) Diagnoses Hemorrhoids with complication K64.8
--- OUTSIDE RECORDS SUMMARY | 2024-09-05 10:26 | XMS_ITS | Data Portability ---
Author Organization SHIR[facility] Mclaughlin [facility] [address] Address [address] [place] [address] Assessment No assessment recorded. Plan of Treatment Reminders Order Date Submit Date Provider Last Modified By Organization Details Last Modified Time Details Appointments None recorded. Lab None recorded. Referral None recorded. Procedures None recorded. Surgeries None recorded. Imaging None recorded. Medication Orders triamcinolo ne acetonide 0.1 % topical cream [address] [id number], [address] [place], [address], 19:17:27 Patient TargetsNo targets recorded. Patient Instructions Encounter Date Encounter Id Patient Instructions Last Modified By Organization Details Last Modified Time 09/13/2022 [id number] controlling eczema (adult) information [email or web address] Not available 09/13/2022 19:17:56 Reason for Referral None Reported. Procedures Surgical History Date Name Laterality Status Provider Name and Address Organization Details Recorded Time colonoscopy completed AUGUST GUILLERMINABERYL [facility]cl[facility] 09/13/2022 18:46:19 Imaging Results None recorded. Procedure Notes None recorded. Medical Equipment None Reported. Allergies No known drug allergies Medications Name Sig Start Date Stop Date Status Note LastModified by Organization Details LastModified Time doxycycline hyclate 100 mg capsule active Not Available Not Available N ot Available azithromyci n 250 mg tablet TAKE 2 TABLETS BY MOUTH TODAY, THEN TAKE 1 TABLET DAILY FOR 4 DAYS 09/13 completed Not Available Not Available Not Available triamcinolo ne acetonide 0.1 % topical cream APPLY THIN COAT TO AFFECTED AREA TWICE A DAY active Not Available Not Available No t Available tamsulosin 0.4 mg capsule TAKE 1 CAPSULE BY MOUTH EVERY DAY FOR 30 DAYS active Not Available Not Available No t Available hydrocortis one 1 % topical cream APPLY TO AFFECTED AREA EVERY 12 HOURS FOR 21 DAYS 09/13 completed Not Available Not Available Not Available cephalexin 500 mg tablet TAKE 1 TAB BY MOUTH THREE TIMES DAILY 09/13 completed Not Available Not Available Not Available codeine 10 mg-guaifene sin 100 mg/5 mL oral liquid TAKE 10 ML BY MOUTH EVERY 6 HOURS NEEDED FOR 7 DAYS-NOT ON INS FORMULARY 09/13 completed Not Available Not Available Not Available mupirocin 2 % topical ointment APPLY 1 APPLICATI ON TOPICALLY 3 TIMES A DAY 09/13 completed Not Available Not Available Not Available Vitals Date Recorded Body height Provider Name an d Address Organization Details Last Updated DateTime 09/13/2022 185.42 cm AUGUST PILLAIVERTBERYL PA - [facility] 09/13/2022 18:43:53 Date Recorded Body mass index (BMI) Body weight Provider Name and Address Organization Details Last Updated DateTime 09/13/2022 23.5 kg/m2 07717.44 g AUGUST OCONNOR [facility] - [facility] 09/13/2022 18:43:57 Date Recorded Body temperature Provider Name a nd Address Organization Details Last Updated DateTime 09/13/2022 98.6 [degF] AUGUST OCONNOR PA - [facility] 09/13/2022 18:47:24 Date Recorded Respiratory rate Provider Name a nd Address Organization Details Last Updated DateTime 09/13/2022 20 /min AUGUST PILLAIVERTBERYL PA - [facility] 09/13/2022 18:47:27 Date Recorded Heart rate Provider Name an d Address Organization Details Last Updated DateTime 09/13/2022 88 /min AUGUST PILLAIVERTBERYL PA - [facility] 09/13/2022 18:47:31 Date Recorded Oxygen saturation Oxygen saturation in Arterial blood by Pulse oximetry Provider Name and Address Organization Details Last Updated DateTime 09/13/2022 100 % 100 % AUGUST OCONNOR PA - [facility] 09/13/2022 18:47:32 Date Recorded Systolic blood pressure Diastolic blood pressure Provider Name and Address Organization Details Last Updated DateTime 09/13/2022 146 mm[Hg] 87 mm[Hg] AUGUST OCONNOR [facility] - [facility] 09/13/2022 18:47:36 Social History Question Answer Notes LastModified by Organizat ion Details LastModified Time Tobacco Smoking Status Former Smoker SHIRAZ Beauchamp - [facility] 09/13/2022 18:45:31 What Is Your Level Of Alcohol Consumption? None Information not available 09/13/2022 What Is Your Water Source? City Information not available 09/13/2022 What Is Your Heat Source? Gas Information not available 09/13/2022 Have You Had Direct Contact, Or Contact During Intimacy, With Monkeypox Rash, Scabs, Or Body Fluids From A Person With Monkeypox? No Information not available 09/13/2022 Do You Use Any Illicit Or Recreational Drugs? No Information not available 09/13/2022 Have You Recently Traveled Abroad? No Information not available 09/13/2022 Do You Or Have You Ever Used Any Other Forms Of Tobacco Or Nicotine? No Information not available 09/13/2022 Sex: Unknown Functional Status None recorded. Mental Status None recorded. Family History Relationship Description Onset Age of this Age Resolved Age Notes LastModified by Organization Details LastModified Time Father No current problems or disability Not available 18:45:20 Mother No current problems or disability Not available 18:45:20 Medical History No medical history recorded. Past Encounters Encounter ID Performer Location Encounter Start Date Encounter Closed Date Diagnosis/Indication Diagnosis SNOMED-CT Code Diagnosis ICD10 Code Diagnosis Note [id number] [address] [place] [address] 04/07/2020 10:36:20 04/07/2020 11:45:08 [id number] Jaleel Vicente DO [address] [address] [place] [address] 09/13/2022 18:35:59 09/13/2022 19:19:27 Eczema 33951579 L30.9 d/w patient bathing/sh owering recommenda tionsUse gentle soaps (Cetaphil, cereve, white dove), good thick lotions (eucerin, aveeno, lubiderm, curel, aquaphor). aveeno, white dove), good thick lotions (aveeno, lubiderm, curel, aquaphor) to moisturize twice daily.Non- colored non-scente d lotions and soaps onlytrial of topical steroid Health Concerns Section Related Observation LastModified by Organization Detai ls LastModified Time None Recorded Concern Status LastModified by Organization Details LastModified Time None Recorded Advance Directives Directive None Recorded Payers Encounter Date Sequence Insurance Name Policy Number Policy Strickland Covered Member ID Strickland Member ID Guarantor Name 04/07/2020 1 [facility] ([facility] [id number] Nicholas Overton [id number] Nichoals Overton 09/13/2022 1 [facility] ([facility] [id number] Nicholas Overton [id number] Nicholas Overton Notes Date Note Type Note Provider Name and Address Organization Details Recorded Time 09/13/2022 text/html 62 yo malec/o it ximena rash on legs and chest for 6 to 7 weeks no f/c/n/v uses soapDenies any new pets, foods, meds, supplements, soaps, detergents, hygeine products etcno known biteshas not been outside, near amin or near poison keyur/tick sources no fatigueno myalgia no known sick contactstried with out improvement Jaleel Vicente, DO [address] [place], [address], [place] - [facility] 09/13/2022 19:18:11
== END 2024-09-05 10:37 | disposition home or self-care (01) ==
PROVIDERS: PCP Internal Medicine Medical Oncology; Referring Provider Internal Medicine Medical Oncology; Visit Provider Surgery
DX: K64.8 Other hemorrhoids (principal)
CPT/HCPCS: 99203

== ENCOUNTER → 2024-09-05 10:05 | Outpatient (BNVA) | payer OTHER, SELFPAY | PROVIDERS: PCP Internal Medicine Medical Oncology; Referring Provider Internal Medicine Medical Oncology; Visit Provider Surgery | DX: K64.8 Other hemorrhoids (principal) | CPT/HCPCS: 99202 ==

== ENCOUNTER 2024-12-22 08:54 | Outpatient (AMB) | payer OTHER, SELFPAY ==
--- NOTE | 2024-12-22 08:58 | A.OFFVIS_ITS ---
Vital Signs 12/22/24 09:02 Height 6 ft 1 in Weight 175 lb BMI 23.1 BP 167/85 H Blood Pressure Location Rt brachial Position Sitting Pulse 66 Intake Visit Reasons: F/U hemorrhoids Intake Note: Patient scheduled for follow up hemorrhoids. Last office visit 09-05-2024. Patient c/o: bleeding when wiping. Reports normal BM. Taking Miralax. It Security Administrator Required: No Accompanied by: Self / Same As Patient Allergies bee pollen [BEE STINGS] Adverse Reaction (Severe, Verified 12/22/24 09:03) Anaphylaxis Medication List - Last Reconciled 12/22/24 by Mark Kemp MD docusate sodium (Colace) 200 mg (2 x 100 mg) PO BEDTIME 30 days hydrocortisone 2.5% (Proctozone-HC) 1 appl NM BID PRN tacrolimus 0.03% 1 appl topical BID tamsulosin 0.4 mg PO DAILY HPI HPI F/U hemorrhoids: Details: 64-year-old male referred for problematic hemorrhoids I had actually seen him last August, because of a long history of prolapse, pain and swelling of his hemorrhoids. He had a large external internal hemorrhoidal column at that time with prolapse of the internal component He did not want to proceed with surgery then because of his work schedule. This continues to bother him and his primary care physician was concerned that this may represent another pathology as this is constantly prolapse He continues to complain of the same symptoms of pain, swelling and prolapse. [facility] Medical History Hemorrhoids with complication Hx of fracture of femur Hx of fracture of leg Tubular adenoma of colon Abdominal pain Flatulence Hemorrhoids Surgical History History of ankle surgery History of surgery on lower extremity Hx of colonoscopy Social History Household Members: None Alcohol intake: never Patient Tobacco Use Status: Former Tobacco user Current occupational status: employed Current occupation: [employer] Const Denies chills and Denies fever(s) Card Denies chest pain, Denies dyspnea and Denies dyspnea on exertion Resp Denies cough, Denies dyspnea and Denies dyspnea on exertion GI Reports hematochezia and Denies change in bowel habits Denies hematuria and Denies difficulty urinating Musc Denies back pain and Denies limited range of motion Neuro Denies focal weakness and Denies convulsions Psych Denies depression and Denies mood swings Physical Exam Vital Signs: Last Vital Signs Pulse 66 12/22/24 09:02 BP 167/85 H 12/22/24 09:02 BMI result Body Mass Index 23.1 Const General: comfortable and no acute distress Orientation/consciousness: patient oriented x3 Neck Neck: Yes no lymphadenopathy Resp Auscultation: clear to auscultation bilaterally Cardio Rhythm: regular rhythm GI Other: Rectal exam shows a large external hemorrhoid with a prolapse internal component, with edema Palpation (GI): Soft to palpation, nontender and no guarding Neuro General: patient oriented x3 Assessment & Plan Assessment & Plan (1) Hemorrhoids with complication: Code(s): K64.8 - Other hemorrhoids Category: Medical Plan: He has this large internal external hemorrhoidal column with chronic complaints including prolapse, pain and swelling. He now wants to proceed with hemorrhoidectomy I reviewed with the technique of exam under anesthesia and hemorrhoidectomy. I explained the risks including but not limited to bleeding, infections and postop pain. He understands what to expect postoperatively. He has given consent. Coding Level of Care Code Est Pt Level 3 (29002) Diagnoses Hemorrhoids with complication K64.8
[2024-12-22 09:02] VITALS: BP 167/85; PULSE 66; BMI 23.1
--- OUTSIDE RECORDS SUMMARY | 2024-12-22 09:18 | XMS_ITS ---
Author Organization Brandon Cabral III, MD Address [address] [place] [address] Care Team Providers Care Ornamental Machine Operator Name Role Phone Brandon Cabral Primary Care Provider REASON FOR VISIT Message Social History Sex Assigned At : Social History Observation Description Sex Assigned At Male Encounters Encounter Location Date Provider Diagnosis Brandon Cabral III, MD [address] [place] [address] [place] [address] 12/01/2024 Brandon Cabral Plan Of Treatment Next Appt Details Provider Name:Brandon Cabral, 03/09/2025 11:15:00 AM, [address] [place] [address] [place], [address], Provider Name:Brandon Cabral, 05/11/2025 11:00:00 AM, [address] [place] [address] [place], [address], Progress Notes * Nicholas OVERTON WDOB: (64 yo M)Acc No.[id number]:12/01/2024 Patient:?Nicholas OVERTON :1960???Age:64 Y???Sex:Male Address: [place] [address] * true * Date:? Generated for Brandi north/Frances/Chris on:?12/22/2024 09:18 AM EDT
--- OUTSIDE RECORDS SUMMARY | 2024-12-22 09:18 | XMS_ITS ---
Author Organization Brandon Cabral III, MD Address [address] [facility] [address] [place] [address] Care Team Providers Care Facilities Maintenance Worker Name Role Phone Brandon Cabarl Primary Care Provider [phone] Allergies Allergen (clinical drug ingredient) Drug/Non Drug [...] Date Provider Diagnosis Brandon Cabral III, MD [address] [place] [address] [address] [place], [place] [address] 12/05/2024 Brandon Cabral Hypertension I10 ; Former [...] As Scheduled, Nadya son: OV Provider Name:Brandon Hensonrne, 03/09/2025 11:15:00 AM, [address] [facility] [address], [place], [address], Provider Name:Brandon Cabral, 05/11/2025 11:00:00 AM, [address] [place] [address] [address], [place], [address], Progress Notes * Nicholas OVERTON WDOB: (64 yo M)Acc No.[id number]:12/05/2024 Patient:?Nicholas OVERTON W Provider:?Brandon Cabral MD :1960???Age:64 Y???Sex:Male Carlos e:12/05/2024 Address: [id number] Subjective: * Chief Complaints: * ???HemorrhoidHypertensionBen ign prostatic hypertrophyAllergiesHearing loss * HPI: ???:? He returns to the office for further treatment of the large hemorrhoid that has been bleeding and causing itching.? Upon examination today despite the use of steroids? conscientiously applied? the round 1-2 cm mass on the ring is no smaller.? I have referred him back to surgery for another opinion as to whether this is a hemorrhoid.? He called the office today with many questions.? His main concern was whether he will be forced to have a procedure to which he did not agree.? I reassured him that he was in control of what was done and then I was asking the surgeon for an opinion as to the nature of this lesion. ?Telehealth?Location of provider rendering services:?{...} [address] [place] [place] [address] ?Location of patient:?address listed in demographics for today's visit ?Patient identification confirmed using:?Name, ?Telehealth method:?Telephone only. Patient not visible to care provider. ?Consent:?Patient verbally consented to treatment, Patient verbally consented to billing insurance company, Patient informed of any privacy concerns related to method of visit ?Total time spent with patient (mins)?15 * ROS:?General/Constitutional:?pain?Anal discomfort.?Chills?denies.?Fatigue?admits.?Fever?denies.?ENT:?Decreased hearing?in both ears.?Respiratory:?Cough?denies.?Cardiovascular:?Chest pain with exertion?denies.?Dyspnea on exertion?denies.?Shortness of breath?denies.?Gastrointestinal:?Constipation?occasional.?Decreased appetite?denies.?Diarrhea?denies.?Heartburn?denies.?Nausea?denies.?Rectal bleeding?described as maroon blood.?Vomiting?denies.?Hematology:?bruising?denies.?petechiae?denies.?Swollen glands?none have been noted.?Genitourinary:?Frequent urination?once a night.?Musculoskeletal:?Muscle aches?denies.?Painful joints?denies.?Sciatica?denies.?Weakness?denies.?Skin:?Itching?denies.?Rash?denies.?Skin lesion(s)?denies.?Neurologic:?Difficulty speaking?denies.?Dizziness?denies.?Headache?denies.?Low back pain?denies.?Psychiatric:?Depressed mood?denies.? * Medical History:? * Surgical History:?left femur fracture 1980tonsillectomy childcolonoscopy 05/2013colonoscopy, Dr. Cruz, [facility], 3 tubular adenomas 05/2020No history * Hospitalization/Major Diagno stic Procedure:?No history * Family History:?Father: dece ased 56 yrs, car accident 1984.?Mother: 62 yrs, car accident 1984.? He is an only child, and has no children. He is not aware of any family history of mental illness or addiction or substance abuse. * Social History:?Tobacco Use:?Tobacco Use/Smoking?Patient is a?former smoker ?How long has it been since you last smoked??> 10 years ?Additional Findings: Tobacco Non-User?Ex-cigarette smoker ???He is single with no children. 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 * Medications:?TakingTamsulosi n HCl 0.4 MG Capsule 1 capsule Orally [...] application Externally three times a day * Allergies:?Bee Sting Objective: * Vitals:? Assessment: * Assessment: 1.?Hypertension - I10 (Prima ry)???Notes :His blood pressure has been normal and no change in his regimen was needed.He will be in the office in 72 hours and have his blood pressure checked again.???2.?Former smoker - Z87.891???Notes :He is highly motivated not to smoke. We discussed a plan for prevention of relapse in times of stress and illness.???3.?Sensorineural hearing loss (SNHL) of both ears - H90.3???Notes :He is wearing his hearing aids and is pleased with their affect.???4.?Environmental allergies - Z91.09???Notes :He will have a trial of an antihistamine. He will return in one week. If there is no improvement.???5.?Constipation, unspecified constipation type - K59.00???Notes :History constipation has resolved with use of laxatives and fiber.???6.?Mass of anus - K62.89???Notes :The anal lesion has not change it's appearance despite aggressive treatment with steroids.I have referred him back to surgery for second opinion.??? Plan: * Treatment: * Procedure Codes:? * Preventive Medicine:? ??Counseling:?Smoking/Tobacco Use?Patient counseled on the dangers of tobacco use and urged to quit.?12/05/2024 * Follow Up:?As Scheduled (Jewett son: OV) * Images: * Sign off status: Completed true * Provider:?Brandon Cabral MD Date:?11/16 Generated for Brandi north/Frances/eTransmitting on:?12/22/2024 09:18 AM EDT History and Physical Notes * HPI (History of Present Illness) Category Sub-Category Detail Notes Telehealth Location of [facility] rendering services:: {...} [address] [facility] [address] Location of patient:: address listed in demographics [...]
--- OUTSIDE RECORDS SUMMARY | 2024-12-22 09:18 | XMS_ITS | Clinical Summary ---
Author Organization [employer] Address [address] [facility] 7[address] [place] [address] Care Team Providers Care Billing Administrator Name Role Phone Catie Perry DDS Unavailable Allergies Active Allergy Reactions Criticality Noted Date Comments Honey Bee Venom Unknown 05/10/2024 Medications tamsulosin (Flomax) 0.4 MG 24 hr capsule 1 capsule in the morning. 4 Active triamcinolone (Kenalog) 0.1 % cream 1 Application 2 times daily. 4 Active cholecalciferol (Vitamin D-3) 10 MCG (400 UNIT) tablet 1 tablet in the morning. Active acetaminophen (Tylenol) 500 MG tabletIndication s:Dental infection Take 1 tablet (500 mg) by mouth every 6 (six) hours if needed for mild pain for up to 20 doses. 20 tablet 4 Active chlorhexidine (Peridex) 0.12 % solutionIndicati ons:History of tooth extraction, unspecified edentulism class Swish 15 mL morning and night for 1 minute. Spit, do not swallow. Do not eat or drink for 30 minutes following use. 473 mL 4 Active Active Problems No known active problems Encounters Date Type Department Care Team Description 12/21/2024 8:00 AM EDT Office Visit [facility] ADULT DENTAL [address] [place] [address] Catie Perry DDS 11/15/2024 8:00 AM EDT Office Visit [facility] ADULT DENTAL [address] [place] [address] Catie Perry DDS 10/28/2024 10:00 AM EDT Office Visit [facility] ADULT DENTAL [address] [place] [address] Catie Perry DDS 10/28/2024 8:00 AM EDT Office Visit [facility] ADULT DENTAL [address] [place] [address] Tico Roger Periodontal disease (Primary Dx); Dental calculus 10/18/2024 8:00 AM EST Office Visit [facility] ADULT DENTAL [address] [place] [address] Catie Perry DDS 10/07/2024 8:00 AM EST Office Visit [facility] ADULT DENTAL [address] [place] [address] Catie Perry DDS from Last 3 Months Social History Tobacco Use Types Packs/Day Years Used Date Smoking Tobacco: Never Smokeless Tobacco: Never Tobacco Cessation:Counseling Given: Not Answered Alcohol Use Standard Drinks/Week Comments Defer 0 (1 standard drink = 0.6 oz pur e alcohol) Sex and Gender Information Value Date Recorded Sex Assigned at Male 06/16/2022 10:38 AM EDT Legal Sex Male 8:42 AM EDT Gender Identity Choose not to disclose 10:38 AM EDT Sexual Orientation Choose not to disclose 2021 10:38 AM EDT Last Filed Vital Signs Vital Sign Reading Time Taken Comments Blood Pressure 122/76 11/15/2024 8:15 AM EDT Pulse 65 10/28/2024 8:07 AM EDT Temperature - - Respiratory Rate - - Oxygen Saturation - - Inhaled Oxygen Concentration - - Weight - - Height - - Body Mass Index - - Plan of Treatment Upcoming Encounters Date Type Department Care Team (Late st Contact Info) Description 12/30/2024 8:00 AM EDT Office Visit [facility] ADULT DENTAL [address] [place] [address] Catie Perry DDS [address] [place] [address] Health Maintenance Due Date Last Done Comments CT Colonography 1961 Colonoscopy 1961 Colorectal Cancer Screening 1960 Depression Screening 1960 FIT DNA/Cologuard 1961 FIT 1961 FOBT 1960 HIV Screening 1960 Lipid Panel 1961 SDOH Screening 1960 Sigmoidoscopy 1961 Alcohol/Substance Use Screening 1973 Hepatitis C Screening 1979 Pneumococcal Vaccine: 50+ Years (1 of 1 - PCV) 2011 Zoster Vaccines (1 of 2) 2011 Dental Oral Exam 05/01/2025 10/28/2024, 02/19/2021 Dental Prophylaxis 05/01/2025 10/28/2024, 02/28/2021 Dental X-Ray: Bitewings 05/11/2025 05/10/2024, 02/19 Tobacco Screening 12/21/2025 12/21/2024 Dental X-Ray: Full Mouth 05/18/2027 024, 05/10/2024, 03/07/2021, Additional history exists DTaP/Tdap/Td Vaccines (2 - Td or Tdap) 03/21/2032 03/21/2022 RSV Patients and Patients Aged 60 years or older (1 - 1-dose 75+ series) 2036 COVID-19 Vaccine Completed 04/24/2024, , 04/30/2022, Additional history exists Influenza Vaccine Completed 05/06/2024, , 04/28/2022, Additional history exists HIB Vaccines Aged Out No longer eligi ble based on patient's age to complete this topic HPV Vaccines Aged Out No longer eligi ble based on patient's age to complete this topic Hepatitis A Vaccines Aged Out No long er eligible based on patient's age to complete this topic Hepatitis B Vaccines Aged Out No long er eligible based on patient's age to complete this topic IPV Vaccines Aged Out No longer eligi ble based on patient's age to complete this topic Meningococcal Vaccine Aged Out No ever willis eligible based on patient's age to complete this topic RSV under 20 months Aged Out No longe r eligible based on patient's age to complete this topic Rotavirus Vaccines Aged Out No longer eligible based on patient's age to complete this topic Procedures Procedure Name Priority Date/Time Associated Diagnosis Comments 27,21 MANDIBULAR PARTIAL DENTURE - RESIN BASE (INCLUDING, RETENTIVE/CLASPING MATERIALS, RESTS, AND TEETH) Routine 12/21/2024 8:00 AM EDT 7,8 MAXILLARY PARTIAL DENTURE - RESIN BASE (INCLUDING, RETENTIVE/CLASPING MATERIALS, RESTS, AND TEETH) Routine 12/21/2024 8:00 AM EDT CASE PRESENTATION, DETAILED AND EXTENSIVE TREATMENT PLANNING Routine 11/15/2024 8:00 AM EDT WAX TRY IN Routine 11/15/2024 8:00 AM EDT 6 MF(V) RESIN-BASED COMPOSITE - 2 SURF, ANTERIOR Routine 11/15/2024 8:00 AM EDT PERIODIC ORAL EVALUATION - ESTABLISHED PATIENT Routine 10/28/2024 10:00 AM EDT CASE PRESENTATION, DETAILED AND EXTENSIVE TREATMENT PLANNING Routine 10/28/2024 10:00 AM EDT DENTURE IMPRESSION Routine 10/28/2024 10 :00 AM EDT CASE PRESENTATION, DETAILED AND EXTENSIVE TREATMENT PLANNING Routine 10/28/2024 8:00 AM EDT ORAL HYGIENE INSTRUCTIONS Routine 2024 8:00 AM EDT PROPHYLAXIS - ADULT Routine 10/28/2024 8 :00 AM EDT 17 B RESIN-BASED COMPOSITE - 1 SURF, POSTERIOR Routine 10/18/2024 8:00 AM EST 15 LO RESIN-BASED COMPOSITE - 2 SURF, POSTERIOR Routine 10/18/2024 8:00 AM EST 2 LO RESIN-BASED COMPOSITE - 2 SURF, POSTERIOR Routine 10/07/2024 8:00 AM EST PANORAMIC RADIOGRAPHIC IMAGE Routine 05/17/2024 9:30 AM EDT INTRAORAL - COMPLETE SERIES OF RADIOGRAPHIC IMAGES Routine 05/10/2024 8:00 AM EDT Dental caries from Last 3 Months or Most Recently Relevant to Health Maintenance Insurance DENTAL - HSN PARTIAL (MEDICAID) Care Teams Billing Administrator Relationship Specialty Start Date End Date Catie Perry DDS [address] [place] [address] [place] [id number] Resident Dental Paper Latcher 10/07/24
--- OUTSIDE RECORDS SUMMARY | 2024-12-22 09:18 | XMS_ITS | Encounter Summary ---
Author Organization [employer] Address [address] [facility] 7[address] [place] [address] Care Team Providers Care Warehouse Laborer Name Role Phone Catie Perry DDS Unavailable [phone] Encounter Details Date Type Department Care Team (Latest Contact Info) Description 02/19/2021 Abstract [facility] CONVERSIONS Dental, Provider, DDS Social History Tobacco Use Types Packs/Day Years Used Date Smoking Tobacco: Never Assessed Sex and Gender Information Value Date Recorded Sex Assigned at Male 06/16/2022 10:38 AM EDT Legal Sex Male 8:42 AM EDT Gender Identity Choose not to disclose 10:38 AM EDT Sexual Orientation Choose not to disclose 2021 10:38 AM EDT documented as of this encounter Plan of Treatment Upcoming Encounters Date Type Department Care Team (Late st Contact Info) Description 12/30/2024 8:00 AM EDT Office Visit [facility] ADULT DENTAL [address] [place] [address] Catie Perry DDS [address] [place] [address] documented as of this encounter Visit Diagnoses Not on filedocumented in this encounter Care Teams Warehouse Laborer Relationship Specialty Start Date End Date Catie Perry DDS [address] [place] [address] Resident Dental Rubber Tire Curer 10/07/24 documented as of this encounter
--- OUTSIDE RECORDS SUMMARY | 2024-12-22 09:19 | XMS_ITS | Encounter Summary ---
Author Organization [employer] Address [address] [place] [address] Care Team Providers Care Oven Worker Name Role Phone Catie Perry DDS Unavailable [phone] Reason for Visit * Reason Comments Dentures Encounter Details Date Type Department Care Team ([facility] st Contact Info) Description 12/21/2024 8:00 AM EDT Office Visit [facility] ADULT D[facility]AL [address] [place] [address] Catie Perry DDS [address] [place] [address] Social History Tobacco Use Types Packs/Day Years Used Date Smoking Tobacco: Never Smokeless Tobacco: Never Alcohol Use Standard Drinks/Week Comments Defer 0 (1 standard drink = 0.6 oz pur e alcohol) Sex and Gender Information Value Date Recorded Sex Assigned at Male 06/16/2022 10:38 AM EDT Legal Sex Male 8:42 AM EDT Gender Identity Choose not to disclose 10:38 AM EDT Sexual Orientation Choose not to disclose 2021 10:38 AM EDT documented as of this encounter Progress Notes * Catie Perry DDS - 12/21/2024 8:00 AM EDT Dental procedures in this visit D5211 - MAXILLARY PARTIAL DENTURE - RESIN BASE (INCLUDING, RETENTIVE/CLASPING MATERIALS, RESTS, ANDTEETH) 7,8 (Completed) Service provider: Catie Perry DDS Billing provider: Sarah Solo DDS D5212 - MANDIBULAR PARTIAL DENTURE - RESIN BASE (INCLUDING, RETENTIVE/CLASPING MATERIALS, RESTS, AND TEETH) 27,21 (Completed) Service provider: Catie Perry DDS Billing provider: Sarah Solo DDS Patient ID: Nicholas Overton is a 64 y.o. adult. Time Out: Date: 12/21/2024 Location: [facility] Tooth: Maxilla and Mandible Procedure: Exam Verified the above with patient, tutoring assistant, and provider. Confirmed via patient's chart, intraorally and by radiographs. Landscape Gardener: not applicable Upper and lower acrylic partial denture insertion done by Dr. Catie Perry DDS Medical history: Reviewed in EHR Vitals: There were no vitals taken for this visit. Allergies: Reviewed in EHR Medications: Reviewed in EHR - Upper and lower acrylic partial denture insertion done. - Bite checked with articulating paper - Necessary adjustments made. - Denture maintenance kit and instructions given to patient. - Patient recalled after 48 hours for post denture insertion follow up. - Patient given instructions for maintenance of denture. - Patient demonstrated how to insert the dentures and take them out. Patient satisfied, left in stable condition NV: follow up after 48 hours. Provider: Dr. Catie Perry DDS Fibre Optic Cable Splicer: Arash London Supervising Dentist: Dr. Solo * Sarah Solo DDS - 12/21/2024 8:00 AM EDT I have reviewed the documentation and dental procedures completed by the rendering provider, Catie Perry DDS, and approve their chart entries for this visit. JENI Wu DDS documented in this encounter Plan of Treatment Upcoming Encounters Date Type Department Care Team (Late st Contact Info) Description 12/30/2024 8:00 AM EDT Office Visit [facility] ADULT DENTAL [address] [place] [address] Catie Perry DDS [address] [place] [address] documented as of this encounter Procedures Procedure Name Priority Date/Time Associated Diagnosis Comments 7,8 MAXILLARY PARTIAL DENTURE - RESIN BASE (INCLUDING, RETENTIVE/CLASPING MATERIALS, RESTS, AND TEETH) Routine 12/21/2024 8:00 AM EDT 27,21 MANDIBULAR PARTIAL DENTURE - RESIN BASE (INCLUDING, RETENTIVE/CLASPING MATERIALS, RESTS, AND TEETH) Routine 12/21/2024 8:00 AM EDT documented in this encounter Visit Diagnoses Not on filedocumented in this encounter Care Teams Oven Worker Relationship Specialty Start Date End Date Catie Perry DDS [address] [place] [address] Resident Dental Rubber Boots And Shoes Repairer 10/07/24 documented as of this encounter
--- OUTSIDE RECORDS SUMMARY | 2024-12-22 09:19 | XMS_ITS | Data Portability ---
Author Organization SHIRAZ Mclaughlin [email or web address] [email or web address] Address [address] [place] [address] Assessment No assessment recorded. Plan of Treatment Reminders Order Date Submit Date Provider Last Modified By Organization Details Last Modified Time Details Appointments None recorded. Lab None recorded. Referral None recorded. Procedures None recorded. Surgeries None recorded. Imaging None recorded. Medication Orders triamcinolo ne acetonide 0.1 % topical cream 2022 023 [facility] #[id number], [address] [place], [address], 19:17:27 Patient TargetsNo targets recorded. Patient Instructions Encounter Date Encounter Id Patient Instructions Last Modified By Organization Details Last Modified Time 09/13/2022 [id number] controlling eczema (adult) information [email or web address] Not available 09/13/2022 19:17:56 Reason for Referral None Reported. Procedures Surgical History Date Name Laterality Status Provider Name and Address Organization Details Recorded Time colonoscopy completed AUGUST SARMIENTOBERYL Mclaughlin [facility] 09/13/2022 18:46:19 Imaging Results None [...] Not Available Vitals Date Recorded Body height Body mass index (BMI) Body weight Body temperature Respiratory rate Heart rate Oxygen saturation Oxygen saturation in Arterial blood by Pulse oximetry Systolic blood pressure Diastolic blood pressure Provider Name and Address Organization Details Last Updated DateTime 185.42 cm 23.5 kg/m2 03976.4 4 g 98.6 [degF] 20 /min 88 /min 100 % 100 % 146 mm[Hg] 87 mm[Hg] AUGUST Marlow PA - [facility] 18:47:36 Social History Question Answer Notes LastModified by [employer] Details LastModified Time Tobacco Smoking Status Former Smoker AUGUST purdy PA - [facility] 09/13/2022 18:45:31 What Is [...] SNOMED-CT Code Diagnosis ICD10 Code Diagnosis Note [id number] [address] [place] [address] 04/07/2020 10:36:20 04/07/2020 11:45:08 [id number] [place] [address] [address] [place] [address] 09/13/2022 18:35:59 09/13/2022 19:19:27 Eczema [id number] L30.9 d/w patient bathing/sh owering recommenda tionsUse [...] Recorded Advance Directives Directive None Recorded Payers Insurance Date Sequence Insurance Name Policy Number Policy Strickland Covered Member ID Strickland Member ID Guarantor Name 09/27/2022 1 [facility] (O) [id number] Nicholas Overton [id number] Nicholas Overton Notes Date Note Type [...] with out improvement Jaleel Vicente, DO [address] [place], [address], SHIRAZ Garcia [facility] 09/13/2022 19:18:11
--- OUTSIDE RECORDS SUMMARY | 2024-12-22 09:19 | XMS_ITS | Patient Health Record ---
Author Organization Brandon Cabral III, MD Address [address] Wilberto [facility] [place] [address] Care Team Providers Care Patient Access Name Role Phone Brandon Cabral Primary Care Provider Allergies Allergen (clinical drug ingredient) Drug/Non Drug Allergy documented on EMR Reaction Allergy Type Onset Date Status Bee Sting Unknown Allergy Active Results Component Value Reference Range Notes URINE DIP STICK Reviewed date:05/06/2024 01:08:41 PM Interpretation: Performing Lab: Notes/Report: SG 1.010 1.005 - 1.025 pH 5.0 5.0 - 9.0 IRAJ Negative Negative - NIT Negative Negative - PRO 15 Negative - Trace GLU Negative Negative - KET Negative Negative - UBG 0.2 0.1 - 1.8 KATHY Negative 0.2 - 1.3 BLD Negative Negative - Complete Blood Count Auto Di ff Reviewed date:04/16/2024 05:41:41 PM Interpretation: Performing Lab:[facility], [address] [place] [id number] Notes/Report: White Blood Count 7.3 4.8-10.8 X10*3/uL Red Blood Count 4.77 4.60-5.80 X10*6/uL Hemoglobin 14.6 14.0-18.0 g/dl Hematocrit 45.0 42.0-52.0 % Mean Corpuscular Volume 94.3 80.0-98.0 fL Mean Corpuscular Hemoglobin 30.6 27.0-33.0 pg Mean Corpuscular HGB Conc 32.4 31.0-36.0 g/dl Red Cell Distribution Width 12.7 11.0-16.0 % Platelet Count 240 160-400 X10*3/uL Mean Platelet Volume 9.8 9.4-12.4 fL Neutrophils Percent Auto 63.6 45-73 % Imm Gran Pct Auto 0.3 0.0-0.4 % Lymphocytes Percent Auto 25.4 20-40 % Monocytes Percent Auto 7.9 2-11 % Eosinophils Percent Auto 2.2 0-4 % Basophils Percent Auto 0.6 0-2 % NRBC Pct Auto 0.0 0.0-0.2 /100WBC Neutrophils Absolute Auto 4.6 2.0-8.3 x10*3/u L Imm Gran Abs Auto 0.02 0.00-0.03 X10*3/uL Lymphocytes Absolute Auto 1.8 1.2-4.9 X10*3/u L Monocytes Absolute Auto 0.6 0.1-1.2 X10*3/uL Eosinophils Absolute Auto 0.2 0.0-0.4 X10*3/u L Basophils Absolute Auto 0.0 0.0-0.2 X10*3/uL NRBC Abs Auto 0.000 0.0-0.012 X10*3/uL Comprehensive Met. Panel Reviewed date:04/16/2024 05:41:41 PM Interpretation: Performing Lab:[facility], [address] [place] [phone] Notes/Report: Sodium 143 135-145 mmol/L Potassium 4.1 3.3-5.1 mmol/L Chloride 105 96-108 mmol/L Carbon Dioxide 32 22-29 mmol/L Anion Gap 10 12-20 Blood Urea Nitrogen 14 9-16 mg/dL Creatinine 0.86 0.5-1.4 mg/dL Estimated Glomerular Filt Rate > 60 NOTE: For -[place] individuals, multiply the result by 1.210. Chronic Kidney Disease: Estimated GFR < 60 mL/min/1.73m2 Severe Kidney Disease: Estimated GFR < 15 mL/min/1.73m2 Glucose Random 106 60-115 mg/dL Calcium 9.4 8.4-10.2 mg/dL Bilirubin Total 0.8 0.0-1.0 mg/dL Aspartate Amino Transferase 25 5-37 U/L Alanine Aminotransferase 26 0-40 U/L Total Protein 6.6 6.5-8.0 g/dL Albumin Level 4.1 3.5-5.0 g/dL Alkaline Phosphatase 62 39-117 U/L Lipid Panel Reviewed date:04/16/2024 05:41:41 PM Interpretation: Performing Lab:[address] [id number] Notes/Report: Triglycerides 57 <150 mg/dL Desirable Triglyceride: less than 150 mg/dL Borderline High Triglyceride 150-199 mg/dL High Triglyceride: 200-499 mg/dL Very High Triglyceride: greater than or equal to 5OO mg/dL Cholesterol 211 <200 mg/dL Desirable Cholesterol: less than 200 mg/dL Borderline High Cholesterol: 200-239 mg/dL High Cholesterol: greater than 239 mg/dL LDL Cholesterol Calculated 141 <100 mg/dL Desirable LDL: less than 100 mg/dL Near Optimal/Above Optimal LDL: 110-129 mg/dL Borderline High LDL: 130-159 mg/dL High LDL: 160-189 mg/dL Very High LDL: greater than or equal to 190 mg/dL HDL Cholesterol 59 >40 mg/dL Desirable HDL: greater than 40 mg/dL Note: This HDL assay may give artificially low results in patients with liver disease. Prostate Specific Antigen Reviewed date:04/16/2024 05:41:41 PM Interpretation: Performing Lab:[address] [phone] Notes/Report: Prostate Specific Antigen 3.56 <0.05-4.0 ng/mL PSA methodology: Thurston Alinity i Chemiluminescent Microparticle Immunoassay (CMIA) Reason For Referral Reason Large hemorrhoid ref ractory to steroids and citz baths ? excision or biopsy Diagnosis 1 Mass of anus (K62.89 ) Diagnosis 2 Hemorrhoids, externa l (K64.4) Referral Organization Brandon Cabral III, MD Referring Provider First Name Brandon Referring Provider Last Name Misha Referring Provider Speciality Internal M edicine Referred Provider NAOMIE LICEA Referred Provider Specialty Surgery Referral Priority Routine Referral Appointment Date 09/05/2024 Medications Medication SIG (Take, Route, Frequency, Duration) [...] needed Mouth/Throat Six times a day Active Immunizations Vaccine Route Administration Date Status Comme nts Influenza IM Intramuscular 08/15/2013 Administered Influenza IM Intramuscular 05/22/2016 Administered Influenza Unknown 05/02/2017 Administered COVID- 19 Vaccine Unknown 11/27/2020 Administered COVID- 19 Vaccine Unknown 12/18/2020 Administered COVID PFIZER Unknown 12/01/2021 Administered COVID PFIZER Unknown 06/20/2021 Administered Influenza no Preserv 3 and > Unknown 04/07/2020 Administered Influenza, quad Unknown 04/28/2022 Administered Tdap Unknown 03/21/2022 Administered COVID- 19 Vaccine Unknown 04/30/2022 Administered Influenza no Preserv 3 and > Unknown 04/24/2010 Administered Influenza no Preserv 3 and > Unknown 05/17/2014 Administered Influenza, quad Unknown 04/17/2019 Administered Influenza, quad Unknown 04/20/2021 Administered Influenza no Preserv 3 and > Unknown 05/20/2011 Administered Influenza, quad Unknown 05/01/2018 Administered Influenza no Preserv 3 and > Unknown 05/16/2012 Administered Influenza no Preserv 3 and > Unknown 05/06/2015 Administered Influenza, quad IM Intramuscular 05/04/2023 Administered p t got flu shot at pharmacy COVID-19 Moderna SPIKEVAX Unknown 04/24/2024 Administered Influenza Vaccine Afluria IM Intramuscular 05/06/2024 Administered Social History Tobacco Use: Social History Observation Description Date Details (start date - stop date) Former Smoker NA - NA Sex Assigned At : Social History Observation Description Sex Assigned At Male Tobacco Use/Smoking Question Answer Notes Patient is a former smoker How long has it been since you last smoked? > 10 years Additional Findings: Tobacco Non-User Ex-cigaret te smoker Alcohol Screen Question Answer Notes Did you have a drink containing alcohol in the p ast year? No Points 0 Interpretation Negative Problems Problem Type SNOMED Code ICD Code Onset Dates Problem Status W/U Status Risk Notes Problem 9528988 Former smoker (Z87.891) Active confirmed He is highly motivated not to smoke. We discussed a plan for prevention of relapse in times of stress and illness. Problem 755879496 Tubular adenoma (D36.9) Active confirmed Gastroenterolog ist found 3 tubular adenomas on his recent colonoscopy. He will have a colonoscopy every 5 years. Problem 72736763 Hypertension (I10) Active confirmed His blood press ure has been normal and no change in his regimen was needed.He will be in the office in 72 hours and have his blood pressure checked again. Problem 127723017 Environmental allergies (Z91.09) Active confirmed He will have a trial of an antihistamine. He will return in one week. If there is no improvement. Problem 97272464 Hyperlipidemia, unspecified hyperlipidemia type (E78.5) Active confirmed His lipids are stable. No change in his regimen was made. We had a discussion about reduce the amount of animal fat and his diet. Problem 28299964 Femur fracture (S72.90XA) Active confirmed He continues to have occasional pain at the fracture site, but it is improving. Problem 9382046 Helicobacter pylori (H. pylori) (A04.8) Active confirmed He is using a nondrowsy antihistamine when working outdoors. Problem 226477223 Benign prostatic hyperplasia with lower urinary tract symptoms (N40.1) Active confirmed He arises from sleep once or twice a night to urinate. We have discussed lifestyle modification as a way to control nocturia. Without medication. Problem 96209394 Constipation, unspecified constipation type (K59.00) Active confirmed History constipation has resolved with use of laxatives and fiber. Problem 764399255 Sensorineural hearing loss (SNHL) of both ears (H90.3) Active confirmed He is wearing h is hearing aids and is pleased with their affect. 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 Problem 89358528 Hemorrhoids, external (K64.4) Active confirmed The mass is unchanged and has not really spondylytic to topical steroids. He is being referred back to surgery for reconsideration of excision and an opinion as to its true nature. Problem 954833011 Mass of anus (K62.89) Active confirmed The anal lesion has not change it's appearance despite aggressive treatment with steroids.I have referred him back to surgery for second opinion. Vital Signs Heart Rate 65 /min 12/01/2024 Temperature 98.2 degrees Fahrenheit 12/01/2024 Blood pressure diastolic 80 mm Hg 12/01/2024 Height 72 in 12/01/2024 Blood pressure systolic 139 mm Hg 12/01/2024 Weight 176 lbs 12/01/2024 BMI 23.87 kg/m2 12/01/2024 Encounters Encounter Location Date Provider Diagnosis Brandon Cabral III, MD [address] [place] [address] [place] [address] 01/07/2024 Brandon Cabral Hypertension I10 ; Benign prostatic hyperplasia with lower urinary tract symptoms N40.1 ; Hyperlipidemia, unspecified hyperlipidemia type E78.5 and Former smoker Z87.891 Brandon Cabral III, MD [address] [place] [address] [place] [address] 01/25/2024 Brandon Cabral Hypertension I10 ; Abrasion of left cornea, subsequent encounter S05.02XD ; Former smoker Z87.891 ; Femur fracture S72.90XA ; Helicobacter pylori (H. pylori) A04.8 ; Constipation, unspecified constipation type K59.00 ; Environmental allergies Z91.09 ; Benign prostatic hyperplasia with lower urinary tract symptoms N40.1 and Abrasion of left cornea, initial encounter S05.02XA Brandon Cabral III, MD [address] [place] [address] [place] [address] 03/28/2024 Brandon Cabral Allergy to bee sting Z91.030 ; Hypertension I10 ; Former smoker Z87.891 ; Constipation, unspecified constipation type K59.00 ; Sensorineural hearing loss (SNHL) of both ears H90.3 ; Environmental allergies Z91.09 and Benign prostatic hyperplasia with lower urinary tract symptoms N40.1 Brandon Cabral III, MD [address] [place] [address] [place] [address] 05/06/2024 Brandon Cabral Allergy to bee sting Z91.030 ; Encounter for immunization Z23 ; Hypertension I10 ; Former smoker Z87.891 ; Sensorineural hearing loss (SNHL) of both ears H90.3 ; Constipation, unspecified constipation type K59.00 and Benign prostatic hyperplasia with lower urinary tract symptoms N40.1 Brandon Cabral III, MD [address] [place] [address] [place] [address] 08/12/2024 Brandon Cabral Allergy to bee sting Z91.030 ; Hypertension I10 ; Former smoker Z87.891 ; Benign prostatic hyperplasia with lower urinary tract symptoms N40.1 and Mass of anus K62.89 Brandon Cabral III, MD [address] [place] [address] [place] [address] 08/15/2024 Brandon Cabral Allergy to bee sting Z91.030 ; Hemorrhoids, external K64.4 and Encounter for immunization Z23 Brandon Cabral III, MD [address] [place] [address] [place] [address] 09/05/2024 Brandon Cabral Hemorrhoids, externa l K64.4 ; Hypertension I10 ; Former smoker Z87.891 ; Benign prostatic hyperplasia with lower urinary tract symptoms N40.1 ; Environmental allergies Z91.09 and Sensorineural hearing loss (SNHL) of both ears H90.3 Brandon Cabral III, MD [address] [place] [address] [place] [address] 11/03/2024 Brandon Cabral Hemorrhoids, externa l K64.4 ; Hypertension I10 ; Former smoker Z87.891 ; Sensorineural hearing loss (SNHL) of both ears H90.3 ; Constipation, unspecified constipation type K59.00 and Hyperlipidemia, unspecified hyperlipidemia type E78.5 Brandon Cabral III, MD [address] [place] [address] [place] [address] 12/01/2024 Brandon Cabral Hemorrhoids, externa l K64.4 ; Constipation, unspecified constipation type K59.00 ; Hyperlipidemia, unspecified hyperlipidemia type E78.5 ; Sensorineural hearing loss (SNHL) of both ears H90.3 ; Benign prostatic hyperplasia with lower urinary tract symptoms N40.1 ; Hypertension I10 and Former smoker Z87.891 Brandon Cabral III, MD [address] [place] [address] [place] [address] 12/05/2024 Brandon Cabral Hypertension I10 ; Former smoker Z87.891 ; Sensorineural hearing loss (SNHL) of both ears H90.3 ; Environmental allergies Z91.09 ; Constipation, unspecified constipation type K59.00 and Mass of anus K62.89 Brandon Cabral III, MD [address] [place] [address] [address] [address] 09/05/2024 Brandon Cabral III, MD [address] [place] [address] [address] [address] 12/01/2024 Brandon Cabral Assessments Encounter Date Diagnosis (ICD Code) Assessment Notes Treat ment Notes Treatment Clinical Notes 01/07/2024 Hypertension (ICD-10 - I10) His blood pressure today is normal at 137/81and no change in his regimen was needed. 01/07/2024 Benign prostatic hyperplasia with lower urinary tract symptoms (ICD-10 - N40.1) 01/25/2024 Hypertension (ICD-10 - I10) His blood pressure today is normal at 137/81and no change in his regimen was needed. 01/25/2024 Abrasion of left cornea, subsequent encounter (ICD-10 - S05.02XD) 03/28/2024 Hypertension (ICD-10 - I10) His blood pressure today is normal at 137/81and no change in his regimen was needed. 03/28/2024 Allergy to bee sting (ICD-10 - Z91.030) He will have an EpiPen to use if it becomes short of breath or hypotensive. 05/06/2024 Encounter for immunization (ICD-10 - Z23) He received influenza vaccine today. 05/06/2024 Allergy to bee sting (ICD-10 - Z91.030) He will have an EpiPen to use if it becomes short of breath or hypotensive. 08/12/2024 Hypertension (ICD-10 - I10) His blood pressure has been normal at 134/80 and no change in his regimen was needed.He will be in the office in 72 hours and have his blood pressure checked again. 08/12/2024 Allergy to bee sting (ICD-10 - Z91.030) He will have an EpiPen to use if it becomes short of breath or hypotensive. 08/15/2024 Allergy to bee sting (ICD-10 - Z91.030) He will have an EpiPen to use if it becomes short of breath or hypotensive. 08/15/2024 Hemorrhoids, external (ICD-10 - K64.4) Try clobetasol twice a day with sitz baths and a high fiber diet. if necessary the hemorrhoid will be removed by general surgery. 09/05/2024 Hypertension (ICD-10 - I10) His blood pressure has been normal at 136/82 and no change in his regimen was needed.He will be in the office in 72 hours and have his blood pressure checked again. 09/05/2024 Hemorrhoids, external (ICD-10 - K64.4) Conservative therapy has been ineffective. He was referred to general surgery for excision of the hemorrhoid. 11/03/2024 Hypertension (ICD-10 - I10) His blood pressure has been normal and no change in his regimen was needed.He will be in the office in 72 hours and have his blood pressure checked again. 11/03/2024 Hemorrhoids, external (ICD-10 - K64.4) He will have a trial of aggressive external hydrocortisone. If this does not relieve the problem we will readdress a surgical solution. 12/01/2024 Constipation, unspecified constipation type (ICD-10 - K59.00) History constipation has resolved with use of laxatives and fiber. 12/01/2024 Hemorrhoids, external (ICD-10 - K64.4) The mass is unchanged and has not really spondylytic to topical steroids. He is being referred back to surgery for reconsideration of excision and an opinion as to its true nature. 12/05/2024 Former smoker (ICD-10 - Z87.891) He is highly motivated not to smoke. We discussed a plan for prevention of relapse in times of stress and illness. 12/05/2024 Hypertension (ICD-10 - I10) His blood pressure has been normal and no change in his regimen was needed.He will be in the office in 72 hours and have his blood pressure checked again. 01/07/2024 Hyperlipidemia, unspecified hyperlipidemia type (ICD-10 - E78.5) 01/25/2024 Former smoker (ICD-10 - Z87.891) He is highly motivated not to smoke. We discussed a plan for prevention of relapse in times of stress and illness. 03/28/2024 Former smoker (ICD-10 - Z87.891) He is highly motivated not to smoke. We discussed a plan for prevention of relapse in times of stress and illness. 05/06/2024 Hypertension (ICD-10 - I10) His blood pressure today is normal at 134/80 and no change in his regimen was needed. 08/12/2024 Former smoker (ICD-10 - Z87.891) He is highly motivated not to smoke. We discussed a plan for prevention of relapse in times of stress and illness. 08/15/2024 Encounter for immunization (ICD-10 - Z23) He received influenza vaccine today. 09/05/2024 Former smoker (ICD-10 - Z87.891) He is highly motivated not to smoke. We discussed a plan for prevention of relapse in times of stress and illness. 11/03/2024 Former smoker (ICD-10 - Z87.891) He is highly motivated not to smoke. We discussed a plan for prevention of relapse in times of stress and illness. 12/01/2024 Hyperlipidemia, unspecified hyperlipidemia type (ICD-10 - E78.5) His lipids are stable. No change in his regimen was made. We had a discussion about reduce the amount of animal fat and his diet. 12/05/2024 Sensorineural hearing loss (SNHL) of both ears (ICD-10 - H90.3) He is wearing his hearing aids and is pleased with their affect. 01/07/2024 Former smoker (ICD-10 - Z87.891) He is highly motivated not to smoke. We discussed a plan for prevention of relapse in times of stress and illness. 01/25/2024 Femur fracture (ICD-10 - S72.90XA) He continues to have occasional pain at the fracture site, but it is improving. 03/28/2024 Constipation, unspecified constipation type (ICD-10 - K59.00) History constipation has resolved with use of laxatives and fiber. 05/06/2024 Former smoker (ICD-10 - Z87.891) He is highly motivated not to smoke. We discussed a plan for prevention of relapse in times of stress and illness. 08/12/2024 Benign prostatic hyperplasia with lower urinary tract symptoms (ICD-10 - N40.1) He arises from sleep once or twice a night to urinate. We have discussed lifestyle modification as a way to control nocturia. Without medication. 09/05/2024 Benign prostatic hyperplasia with lower urinary tract symptoms (ICD-10 - N40.1) He arises from sleep once or twice a night to urinate. We have discussed lifestyle modification as a way to control nocturia. Without medication. 11/03/2024 Sensorineural hearing loss (SNHL) of both ears (ICD-10 - H90.3) He is wearing his hearing aids and is pleased with their affect. 12/01/2024 Sensorineural hearing loss (SNHL) of both ears (ICD-10 - H90.3) He is wearing his hearing aids and is pleased with their affect. 12/05/2024 Environmental allergies (ICD-10 - Z91.09) He will have a trial of an antihistamine. He will return in one week. If there is no improvement. 01/25/2024 Helicobacter pylori (H. pylori) (ICD-10 - A04.8) He is using a nondrowsy antihistamine when working outdoors. 03/28/2024 Sensorineural hearing loss (SNHL) of both ears (ICD-10 - H90.3) He is wearing his hearing aids and is pleased with their affect. 05/06/2024 Sensorineural hearing loss (SNHL) of both ears (ICD-10 - H90.3) He is wearing his hearing aids and is pleased with their affect. 08/12/2024 Mass of anus (ICD-10 - K62.89) He has noticed an anal lump which is painful and Lias blood on the toilet paper. He says he has to push it back in. He was given an appointment to come to the office on the next business day at 9 AM for examination and treatment. 09/05/2024 Environmental allergies (ICD-10 - Z91.09) He will have a trial of an antihistamine. He will return in one week. If there is no improvement. 11/03/2024 Constipation, unspecified constipation type (ICD-10 - K59.00) History constipation has resolved with use of laxatives and fiber. 12/01/2024 Benign prostatic hyperplasia with lower urinary tract symptoms (ICD-10 - N40.1) He arises from sleep once or twice a night to urinate. We have discussed lifestyle modification as a way to control nocturia. Without medication. 12/05/2024 Constipation, unspecified constipation type (ICD-10 - K59.00) History constipation has resolved with use of laxatives and fiber. 01/25/2024 Constipation, unspecified constipation type (ICD-10 - K59.00) History constipation has resolved with use of laxatives and fiber. 03/28/2024 Environmental allergies (ICD-10 - Z91.09) He will have a trial of an antihistamine. He will return in one week. If there is no improvement. 05/06/2024 Constipation, unspecified constipation type (ICD-10 - K59.00) History constipation has resolved with use of laxatives and fiber. 09/05/2024 Sensorineural hearing loss (SNHL) of both ears (ICD-10 - H90.3) He is wearing his hearing aids and is pleased with their affect. 11/03/2024 Hyperlipidemia, unspecified hyperlipidemia type (ICD-10 - E78.5) His lipids are stable. No change in his regimen was made. We had a discussion about reduce the amount of animal fat and his diet. 12/01/2024 Hypertension (ICD-10 - I10) His blood pressure has been normal and no change in his regimen was needed.He will be in the office in 72 hours and have his blood pressure checked again. 12/05/2024 Mass of anus (ICD-10 - K62.89) The anal lesion has not change it's appearance despite aggressive treatment with steroids.I have referred him back to surgery for second opinion. 01/25/2024 Environmental allergies (ICD-10 - Z91.09) He will have a trial of an antihistamine. He will return in one week. If there is no improvement. 03/28/2024 Benign prostatic hyperplasia with lower urinary tract symptoms (ICD-10 - N40.1) He arises from sleep once or twice a night to urinate. We have discussed lifestyle modification as a way to control nocturia. Without medication. 05/06/2024 Benign prostatic hyperplasia with lower urinary tract symptoms (ICD-10 - N40.1) He arises from sleep once or twice a night to urinate. We have discussed lifestyle modification as a way to control nocturia. Without medication. 12/01/2024 Former smoker (ICD-10 - Z87.891) He is highly motivated not to smoke. We discussed a plan for prevention of relapse in times of stress and illness. 01/25/2024 Benign prostatic hyperplasia with lower urinary tract symptoms (ICD-10 - N40.1) He arises from sleep once or twice a night to urinate. We have discussed lifestyle modification as a way to control nocturia. Without medication. 01/25/2024 Abrasion of left cornea, initial encounter (ICD-10 - S05.02XA) The area has completely healed and resolved. Plan Of Treatment Pending Test Test Name Order Date PROFILE, FASTING (COMPREHENSIVE METABOLI C) 05/04/2023 PROFILE, FASTING (COMPREHENSIVE METABOLI C) 06/01/2018 PROFILE, FASTING (COMPREHENSIVE METABOLI C) 06/13/2019 PROFILE, FASTING (COMPREHENSIVE METABOLI C) 12/04/2021 PROFILE, FASTING (COMPREHENSIVE METABOLI C) 09/04/2020 PROFILE, FASTING (COMPREHENSIVE METABOLI C) 11/24/2022 PROFILE, FASTING (COMPREHENSIVE METABOLI C) 01/07/2024 PROFILE, FASTING (COMPREHENSIVE METABOLI C) 02/20/2022 PROFILE, FASTING (COMPREHENSIVE METABOLI C) 09/03/2023 PROFILE, RANDOM (COMPREHENSIVE METABOLIC ) 06/04/2020 HEMOGLOBIN A1C (GLYCOHEMOGLOBIN) 022 LIPID PANEL 05/04/2023 LIPID PANEL 06/13/2019 LIPID PANEL 09/04/2020 LIPID PANEL 11/24/2022 LIPID PANEL 12/04/2021 LIPID PANEL 02/20/2022 FREE T4 (FT4) 01/09/2022 TSH (THYROID STIMULATING HORMONE) 2021 PSA, TOTAL 05/04/2023 PSA, TOTAL 01/07/2024 PSA, TOTAL 06/13/2019 PSA, TOTAL 09/04/2020 PSA, TOTAL 11/24/2022 PSA, TOTAL 02/20/2022 MICROALBUMIN, RANDOM 12/04/2021 CBC w DIFF 09/03/2023 CBC w DIFF 12/04/2021 CBC w DIFF 06/04/2020 CBC w DIFF 02/20/2022 CBC w DIFF 05/04/2023 CBC w DIFF 06/13/2019 CBC w DIFF 09/04/2020 CBC w DIFF 11/24/2022 VITAMIN D 25-OH TOTAL 09/04/2020 CBC WITH AUTO DIFF 01/07/2024 Lipid Panel 09/03/2023 Lipid Panel 01/07/2024 Next Appt Details Provider Name:Brandon Cabral, 03/09/2025 11:15:00 AM, [address] [place] [address] [address], [place], [address], Provider Name:Brandon Mikene, 05/11/2025 11:00:00 AM, [address] [place] [address] [address], [place], [address], Insurance Providers Payer Name Payer Address Payer Phone Subscriber Number Group Number Insured Name Patient Relationship to Insured Coverage Start Date Coverage End Date [employer] [address] [address] [place] [address] [id number] [facility] Nicholas Overton Self - patient is the insured Medical (General) History Medical History History ICD Code Hematochezia due to hemorrhoids T & A weight loss diarrhea former smoker tubular adenoma 2012 Benign prostatic hypertrophy Surgical History Surgery Date(Month/Year) No history colonoscopy, Dr. Cruz, [facility], 3 tubular adenomas 05/2020 colonoscopy 05/2013 tonsillectomy child left femur fracture 1979 Hospitalization History Reason Date(Month/Year) No history
--- OUTSIDE RECORDS SUMMARY | 2024-12-22 09:19 | XMS_ITS | Clinical Summary ---
Author Organization [facility] it Address [address] [place] [address] Care Team Providers Care Enlisted Advisor Name Role Phone Unavailable Primary Care Provider Unavailabl e Social History Tobacco Use Types Packs/Day Years Used Date Smoking Tobacco: Never Assessed Sex and Gender Information Value Date Recorded Sex Assigned at Not on file Legal Sex Male 12:43 AM EST Gender Identity Not on file Sexual Orientation Not on file Plan of Treatment Health Maintenance Due Date Last Done Comments DTaP,Tdap,and Td Vaccines (1 - Tdap) 1980 Pneumococcal Vaccine: 50+ Ye ars (1 of 1 - PCV) 2011 Zoster Vaccines (1 of 2) 2011 Cholesterol Screening (Lipid Panel) 07/20/2022 Colorectal Cancer Screening: Colonoscopy 07/20/2022 Depression Screening 07/20/2022 HIV Screening 07/20/2022 Hepatitis C Screening 07/20/2022 Social Influencers of Health Screening 07/20/2022 COVID-19 Vaccine ( - 2023-2 5 season) 2024 Influenza Vaccine (Season Ended) 2025 RSV Immunization Adult Patie nts (1 - 1-dose 75+ series) 2036 HIB Vaccines Aged Out No longer eligi [...] on patient's age to complete this topic MMR Vaccines Aged Out No longer eligi ble based on patient's age to complete this topic Meningococcal ACWY Vaccine Aged Out N o longer eligible based on patient's age to complete this topic Meningococcal B Vaccine Aged Out No l onger eligible based on patient's age to complete this topic Pneumococcal Vaccine: Pediat rics (0 to 5 Years) and At-Risk Patients (6 to 64 Years) Aged Out No longer eligible b ased on patient's age to complete this topic RSV Immunization Patients Un jim 20 months Aged Out No longer eligible b ased on patient's age to complete this topic Varicella Vaccines Aged Out No longer eligible based on patient's age to complete this topic
--- OUTSIDE RECORDS SUMMARY | 2024-12-22 09:19 | XMS_ITS ---
Author Organization Brandon Cabral III, MD Address [address] [place] [address] Care Team Providers Care Creative Services Director Name Role Phone Brandon Cabral Primary Care Provider Allergies Allergen (clinical drug ingredient) Drug/Non Drug Allergy documented on EMR Reaction Allergy Type Onset Date Status Bee Sting Unknown Allergy Active REASON FOR VISIT Hemorrhoid, Hypertension, Benign prostatic hypertrophy, Hearing loss, Allergies Medications Medication SIG (Take, Route, Frequency, Duration) Notes Start Date End Date Status Vitamin D3 10 MCG (400 UNIT) 1 tablet Or ally Once a day Active Hydrocortisone 2.5 % 1 application Exter tristen three times a day 11/03/2024 Active EPINEPHrine 0.15 MG/0.3ML as directed In jection if stung by by bee 03/28/2024 Active Zinc + Vitamin C 20-120 MG 1 lozenge as needed Mouth/Throat Six times a day Active Tamsulosin HCl 0.4 MG 1 capsule Orally O nce a day 12/18/2023 Active Social History Tobacco Use: Social History Observation Description Date Details (start date - stop date) Former Smoker NA - NA Sex Assigned At : Social History Observation Description Sex Assigned At Male Tobacco Use/Smoking Question Answer Notes Patient is a former smoker How long has it been since you last smoked? > 10 years Additional Findings: Tobacco Non-User Ex-cigaret te smoker Vital Signs Temperature 98.2 degrees Fahrenheit 12/02/19 25 Blood pressure systolic 139 mm Hg 12/02/19 25 Blood pressure diastolic 80 mm Hg 025 Heart Rate 65 /min 12/01/2024 Height 72 in 12/01/2024 Weight 176 lbs 12/01/2024 BMI 23.87 kg/m2 12/01/2024 Encounters Encounter Location Date Provider Diagnosis Brandon Cabral III, MD [address] [place] [address] [place] [address] 12/01/2024 Brandon Cabral Hemorrhoids, externa l K64.4 ; Constipation, unspecified constipation type K59.00 ; Hyperlipidemia, unspecified hyperlipidemia type E78.5 ; Sensorineural hearing loss (SNHL) of both ears H90.3 ; Benign prostatic hyperplasia with lower urinary tract symptoms N40.1 ; Hypertension I10 and Former smoker Z87.891 Assessments Encounter Date Diagnosis (ICD Code) Assessment Notes Treat ment Notes Treatment Clinical Notes 12/01/2024 Hemorrhoids, external (ICD-10 - K64.4) The mass is unchanged and has not really spondylytic to topical steroids. He is being referred back to surgery for reconsideration of excision and an opinion as to its true nature. 12/01/2024 Constipation, unspecified constipation type (ICD-10 - K59.00) History constipation has resolved with use of laxatives and fiber. 12/01/2024 Hyperlipidemia, unspecified hyperlipidemia type (ICD-10 - E78.5) His lipids are stable. No change in his regimen was made. We had a discussion about reduce the amount of animal fat and his diet. 12/01/2024 Sensorineural hearing loss (SNHL) of both ears (ICD-10 - H90.3) He is wearing his hearing aids and is pleased with their affect. 12/01/2024 Benign prostatic hyperplasia with lower urinary tract symptoms (ICD-10 - N40.1) He arises from sleep once or twice a night to urinate. We have discussed lifestyle modification as a way to control nocturia. Without medication. 12/01/2024 Hypertension (ICD-10 - I10) His blood pressure has been normal and no change in his regimen was needed.He will be in the office in 72 hours and have his blood pressure checked again. 12/01/2024 Former smoker (ICD-10 - Z87.891) He is highly motivated not to smoke. We discussed a plan for prevention of relapse in times of stress and illness. Plan Of Treatment Medication Medication Name Sig Start Date Stop Date Notes Vitamin D3 10 MCG (400 UNIT) 1 tablet Orally Once a day Hydrocortisone 2.5 % 1 application Exter tristen three times a day 11/03/2024 EPINEPHrine 0.15 MG/0.3ML as directed In jection if stung by by bee 03/28/2024 Zinc + Vitamin C 20-120 MG 1 lozenge as needed Mouth/Throat Six times a day Tamsulosin HCl 0.4 MG 1 capsule Orally Once a day 12/18/19 Next Appt Details Follow Up: 3 Months, Reason: ov Provider Name:Brandon Cabral, 03/09/2025 11:15:00 AM, [address] [place] [address] [address], [place], [id number], Provider Name:Brandon Cabral, 05/11/2025 11:00:00 AM, [address] [place] [address] [address], [place], [address], Progress Notes * Nicholas OVERTON WDOB: (64 yo M)Acc No.[id number]:12/01/2024 Progress Notes Patient:?MISTIURVASHINicholas W Provider:?Brandon Cabral MD :1960???Age:64 Y???Sex:Male Carlos e:12/01/2024 Address: [id number] Subjective: * Chief Complaints: * ???HemorrhoidHypertensionBen ign prostatic hypertrophyHearing lossAllergies * HPI: ???COVID-19 Screening:?He has been seen recently because of a persistent hemorrhoid.? He has been applying hydrocortisone to the area for several weeks.? On examination today there has been no change in the round red mass attached to the anal ring.? The bleeding has stopped.? I have referred him back to the surgeon for reevaluation and possible excision.? The patient did not wish to have it excised because of the possibility of prolonged absence from work which he cannot afford. The situation will be reevaluated.? He is going to see Dr. Kemp December 15, 2024.. ?Questions?Have you had any new onset fever, chills, cough, congestion, sore throat, shortness of breath, muscle aches??No * ROS:?General/Constitutional:?pain?Anal.?Chills?denies.?Fatigue?admits.?Fever?denies.?ENT:?Decreased hearing?denies.?Respiratory:?Cough?denies.?Cardiovascular:?Chest pain with exertion?denies.?Dyspnea on exertion?denies.?Shortness of breath?denies.?Gastrointestinal:?Constipation?occasional.?Decreased appetite?denies.?Diarrhea?denies.?Heartburn?denies.?Nausea?denies.?Rectal bleeding?described as bright red blood.?Vomiting?denies.?Hematology:?bruising?denies.?petechiae?denies.?Swollen glands?none have been noted.?Genitourinary:?Frequent urination?once a night.?Musculoskeletal:?Muscle aches?denies.?Painful joints?denies.?Sciatica?denies.?Weakness?denies.?Skin:?Itching?denies.?Rash?denies.?Skin lesion(s)?denies.?Neurologic:?Difficulty speaking?denies.?Dizziness?denies.?Headache?denies.?Low back pain?denies.?Psychiatric:?Depressed mood?denies.? * Medical History:? * Surgical History:?left femur fracture 1980tonsillectomy childcolonoscopy 05/2013colonoscopy, Dr. 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 He was born in [place], [place]. * Medications:?TakingTamsulosi n HCl 0.4 MG [...] 1 application Externally three times a day Medication List reviewed and reconciled with the patientTaking Tamsulosin HCl 0.4 MG Capsule 1 capsule [...] 1 application Externally three times a day Medication List reviewed and reconciled with the patient * Allergies:?Bee Stingno[Aller gies Verified] Objective: * Vitals:?Ht: 72, Wt: 176, BMI :23.87, BP: 139/80, HR: 65, Temp: 98.2, Wt-k.83. * Examination: ???General Examination: ?GENERAL APPEARANCE:?pleasant, well nourished, well developed, in no acute distress, calm and relaxed, man.?HEAD:?atraumatic, normocephalic.?EYES:?eomi, perrla, anicteric, conjugate.?EARS:?Normal anatomy with hhearing loss.?NOSE:?septum intact.?ORAL CAVITY:?normal, unremarkable.?NECK/THYROID:?no jugular venous distention, no carotid bruit, thyroid normal.?LYMPH NODES:?no enlarged lymph nodes,spleen normal.?SKIN:?no suspicious lesions, anicteric.?HEART:?no clicks, gallops, murmurs, or rubs, regular rhythm, S1, S2 normal, no s3, or vascular bruits.?LUNGS:?clear to auscultation .?BREASTS:??no masses palpable bilaterally.?ABDOMEN:?bowel sounds normal, no ascites, no organomegaly, no mass.?RECTAL EXAM:?1.5 cm round red mass attached anal ring, no bleeding noted, slightly tender.?MUSCULOSKELETAL:?extremities unremarkable, no clubbing, cyanosis or edema.?PERIPHERAL PULSES:?normal.?NEUROLOGIC:?alert and oriented, cranial nerves 2-12 grossly intact, deep tendon reflexes 2+ symmetrical, motor strength normal upper and lower extremities, sensory exam intact.?PSYCH:?alert, oriented, anxious appearing.? Assessment: * Assessment: 1.?Hemorrhoids, external - K 64.4 (Primary)???Notes :The mass is unchanged and has not really spondylytic to topical steroids.? He is being referred back to surgery for reconsideration of excision and an opinion as to its true nature.???2.?Constipation, unspecified constipation type - K59.00???Notes :History constipation has resolved with use of laxatives and fiber.???3.?Hyperlipidemia, unspecified hyperlipidemia type - E78.5???Notes :His lipids are stable. No change in his regimen was made. We had a discussion about reduce the amount of animal fat and his diet.???4.?Sensorineural hearing loss (SNHL) of both ears - H90.3???Notes :He is wearing his hearing aids and is pleased with their affect.???5.?Benign prostatic hyperplasia with lower urinary tract symptoms - N40.1???Notes :He arises from sleep once or twice a night to urinate. We have discussed lifestyle modification as a way to control nocturia. Without medication.???6.?Hypertension - I10???Notes :His blood pressure has been normal and no change in his regimen was needed.He will be in the office in 72 hours and have his blood pressure checked again.???7.?Former smoker - Z87.891???Notes :He is highly motivated not to smoke. We discussed a plan for prevention of relapse in times of stress and illness.??? Plan: * Treatment: * Procedure Codes:? * Follow Up:?3 Months (Reason: ov) * Images: * Sign off status: Completed true * Provider:?Brandon Cabral MD Date:?11/15 Generated for Brandi north/Frances/eTransmitting on:?12/22/2024 09:19 AM EDT History and Physical Notes * HPI (History of Present Illness) Category Sub-Category Detail Notes COVID-19 Screening Questions Have you had any new onset fever, chills, cough, congestion, sore throat, shortness of breath, muscle aches?: No Examination Category Sub-Category Detail Notes General Examination GENERAL APPEARANCE: pleasant , well nourished, well developed, in no acute distress, calm and relaxed, man HEAD: atraumatic, normocep halic EYES: eomi, perrla, anicte kasia, conjugate EARS: Normal anatomy with hhearing loss NOSE: septum intact NECK/THYROID: no jugular venous di stention, no carotid bruit, thyroid normal HEART: no clicks, gallops, murmurs, or rubs, regular rhythm, S1, S2 normal, no s3, or vascular bruits LUNGS: clear to auscultatio n ABDOMEN: bowel sounds normal, no ascites, no organomegaly, no mass NEUROLOGIC: alert and oriented, cranial nerves 2-12 grossly intact, deep tendon reflexes 2+ symmetrical, motor strength normal upper and lower extremities, sensory exam intact SKIN: no suspicious lesion s, anicteric PERIPHERAL PULSES: normal BREASTS: no masses palpable b ilaterally MUSCULOSKELETAL: extremities unremark able, no clubbing, cyanosis or edema LYMPH NODES: no enlarged lymph no ron,spleen normal RECTAL EXAM: 1.5 cm round red mas s attached anal ring, no bleeding noted, slightly tender PSYCH: alert, oriented, anx ious appearing ORAL CAVITY: normal, unremarkable
== END 2024-12-22 09:15 | disposition home or self-care (01) ==
LOC: HO.HGS 08:54
PROVIDERS: PCP Internal Medicine Medical Oncology; Visit Provider Surgery
DX: K64.8 Other hemorrhoids (principal)
CPT/HCPCS: 99213

== ENCOUNTER → 2024-12-22 08:54 | Outpatient (BNVA) | payer OTHER, SELFPAY | PROVIDERS: PCP Internal Medicine Medical Oncology; Visit Provider Surgery | DX: K64.8 Other hemorrhoids (principal) | CPT/HCPCS: 99212 ==

== ENCOUNTER 2025-02-03 07:21 | Day surgery (SDC) | payer OTHER, SELFPAY ==
--- OUTSIDE RECORDS SUMMARY | 2025-01-05 13:20 | XMS_ITS | Encounter Summary ---
Author Organization [employer] Address [address] [place] [address] Care Team Providers Care Driving School Instructor Name Role Phone Catie Perry DDS Unavailable [phone] Encounter Details Date Type Department Care Team (Latest Contact Info) Description 02/19/2021 Abstract [facility] Dental, Provider, DDS Social History Tobacco [...] Care Team (Late st Contact Info) Description 01/12/2025 8:00 AM EDT Office Visit [facility] [address] [place] [address] Catie Perry DDS [address] [place] [address] documented as of this encounter Visit Diagnoses Not on filedocumented in this encounter Care Teams Driving School Instructor Relationship Specialty Start Date End Date Catie Perry DDS [address] [place] [address] Resident [employer] Supervisor 10/07/24 documented as of this encounter
[2025-02-01 10:30] VITALS: BMI 23.1
[2025-02-03] VITALS (8 sets, daily range): BP systolic 104–170; BP diastolic 53–90; PULSE 51–63; RESP 16–17; TEMP 36.2–36.6; O2SAT 96–100; BMI 22.2
[2025-02-03] MEDS: Lactated Ringers 1,000 ML 100 ML IVCONT (08:45)
--- NOTE | 2025-02-03 08:58 | MHC.SHP ---
Pre-Procedural Eval Section A - 24 Hr Update-Section A only Date of Service: 02/03/25 Section B - Complete if H&P > 30 days Chief Complaint: Other hemorrhoids Details of Present Illness: Has prolapsing hemorrhoids with pain and bleeding Relevant Family History (Specify if Yes): No Relevant Social History: None Present Medications: see Short Stay Collaborative assessment Medical History: No relevant PMH Allergies: Allergies Allergy/AdvReac Type Severity Reaction Status Date / Time bee pollen (BEE STINGS) AdvReac Severe Anaphylaxis Verified 12/22/24 09:03 Review of Systems Sugical H&P ROS: Negative: Constitution, Cardiovascular and Gastrointestinal Exam Surgical H&P Exam: Normal: Heart, Normal: Lungs and Normal: Abdomen Plan Diagnosis/Plan: Unchanged I have reviewed the history and physical and performed a pertinent physical examination on my patient. No changes have occurred unless specified. Time Spent With Patient Time: Total time managing care of this patient today ____ minutes.
--- NOTE | 2025-02-03 09:01 | HO.ANESPROP2 ---
Documented by User: Pippa Becker NP 02/02/25 09:40 HPI - Anesthesia Eval Consult details Narrative: 64yo M for EUA,Hemorrhoidectomy PMFSH Active Problems Active Problems: All Active Problems Hemorrhoids with complication (Acute) Diverticulosis of colon (Acute) Sessile serrated polyp of colon (Acute) Tubular adenoma of colon (Acute) Abdominal pain (Acute) Flatulence (Acute) Hemorrhoids (Acute) Past Medical History Medical History Hemorrhoids with complication Hx of fracture of femur Hx of fracture of leg Tubular adenoma of colon Abdominal pain Flatulence Hemorrhoids Family History Family history of problems with anesthesia: No Surgical History Surgical History History of ankle surgery History of surgery on lower extremity Hx of colonoscopy History of Problems with Anesthesia: No Social History Social History Household Members: None Are you a primary ocular care technologist to a significant other at home: No Do you presently have visiting nurse or other home services: No Alcohol intake: never Patient Tobacco Use Status: Former Tobacco user Use of substances other than those prescribed or required for medical reasons: No Have you been hit, kicked, punched, or otherwise hurt by someone within the past year? If so, by whom?: No Are you DNR?: No Advance Directives: No Advance Directives Information Provided: Yes Poor oral hygiene: Yes Current occupational status: employed Current occupation: [employer] Allergies Allergy/AdvReac Type Severity Reaction Status Date / Time bee pollen (BEE STINGS) AdvReac Severe Anaphylaxis Verified 12/22/24 09:03 Home Medications ?Medication ?Instructions ?Recorded ?Confirmed ?Last Taken ?Type tamsulosin 0.4 mg capsule 0.4 mg PO DAILY 12/19/20 02/03/25 Unknown History Exam Height,Weight and Vital Signs: Height 6 ft 1 in Weight 79.379 kg Assessment and Plan Assessment Anesthesia Assessment: Chart Reviewed Final Anesthetic Review Family History of Problems with Anesthesia: No History of Problems with Anesthesia: No Documented by User: Elizabet Chau, 02/03/25 09:20 [facility] Past Medical History Medical History Hemorrhoids with complication Hx of fracture of femur Hx of fracture of leg Tubular adenoma of colon Abdominal pain Flatulence Hemorrhoids Family History Family history of problems with anesthesia: No Surgical History Surgical History History of ankle surgery History of surgery on lower extremity Hx of colonoscopy History of Problems with Anesthesia: No Social History Social History Household Members: None Are you a primary ocular care technologist to a significant other at home: No Do you presently have visiting nurse or other home services: No Alcohol intake: never Patient Tobacco Use Status: Former Tobacco user Use of substances other than those prescribed or required for medical reasons: No Have you been hit, kicked, punched, or otherwise hurt by someone within the past year? If so, by whom?: No Are you DNR?: No Advance Directives: No Advance Directives Information Provided: Yes Poor oral hygiene: Yes Current occupational status: employed Current occupation: [employer] Allergies Allergy/AdvReac Type Severity Reaction Status Date / Time bee pollen (BEE STINGS) AdvReac Severe Anaphylaxis Verified 12/22/24 09:03 Home Medications ?Medication ?Instructions ?Recorded ?Confirmed ?Last Taken ?Type tamsulosin 0.4 mg capsule 0.4 mg PO DAILY 12/19/20 02/03/25 Unknown History Exam Exam Date and Time: 02/03/25 0859 Height,Weight and Vital Signs: Height 6 ft 1 in Weight 79.379 kg Vital Signs Temperature 97.4 F 02/03/25 08:46 Pulse Rate 63 02/03/25 08:46 Respiratory Rate 17 02/03/25 08:46 Blood Pressure 170/80 H 02/03/25 08:46 Pulse Oximetry 98 02/03/25 08:46 Oxygen Delivery Method Room Air 02/03/25 08:46 Temperature 97.4 F 02/03/25 08:46 Pulse Rate 63 02/03/25 08:46 Respiratory Rate 17 02/03/25 08:46 Blood Pressure 170/80 H 02/03/25 08:46 Pulse Oximetry 98 02/03/25 08:46 Oxygen Delivery Method Room Air 02/03/25 08:46 Airway Mallampati Class: II TM Dist: >3cm Neck ROM: Full Loose/Missing/Broken Teeth: Yes (partials removed and left at home) Heart: S1S2 Lungs: CTAB Assessment and Plan Assessment Anesthesia Assessment: Anesthesia Plan Discussed and Chart Reviewed Final Anesthetic Review Family History of Problems with Anesthesia: No History of Problems with Anesthesia: No NPO: Yes ASA Class: II Final Preanesthetic Review: No Changes in Pt Med Stat, Meds/Allgs Chart Reviewed, Consent Obtained/Reviewed and Anes Risks/Benef Reviewed Patient Risk: Low Procedure Risk: Low Anesthetic Plan Anesthetic Plan: GA and Agree w/ Assess. and Plan Disposition: Standard PACU
[2025-02-03] MEDS: cefoTEtan disodium 2 GM VIAL IVPUSH (09:15)
--- NOTE | 2025-02-03 09:38 | W.PM.OPN ---
Operative Note Operative Note Date of Service: 02/03/25 Narrative: Preop diagnosis: Internal external Hemorrhoids with prolapse, bleeding and pain Postop diagnosis: The same Procedure: Exam under anesthesia hemorrhoidectomy x2 columns Surgeon: Mark Kemp MD The patient is a 64-year-old male with a long history of prolapse of his hemorrhoids with associated pain and bleeding. He wanted to proceed with hemorrhoidectomy. He understood the technique of the planned procedure as well as the risks, benefits, and alternatives He was brought to the operating room. He was placed in prone kiara-knife position under general anesthesia via endotracheal tube. The buttocks were retracted with wide tape laterally. The perianal area was prepped and draped in the usual sterile fashion. A surgical time-out was done. The patient received Cefotan 2 g IV preoperatively Examination of the anal orifice revealed an prolapsing internal external hemorrhoid which appeared to be posterior I infiltrated the perianal area with lidocaine 1%. I inserted the Lula Dorantes retractor. I examined the anal canal circumferentially. Again, this long hemorrhoidal column posteriorly which appeared to be a mix of internal and external was seen. There was note of another mixed hemorrhoidal column anteriorly I applied a Kang grasper on the hemorrhoidal column posteriorly to retract this out in the field. I made a [id number] stitch at the pedicle past the dentate line with a chromic 3-0. I made an incision around this hemorrhoidal column to the perianal skin with a blade 15.. I excised the hemorrhoidal column above the plane of the sphincters with scissors. I closed the incision with a running chromic 3-0 stitch. Additional [id number] hemostatic sutures were placed The same procedure was duplicated on the hemorrhoidal column anteriorly. Again this was grasped with a Kang grasper to retract this. I made a [id number] stitch at the pedicle. I made incision around this hemorrhoidal columns to the perianal skin and excise this above the plane of the sphincters with scissors. I closed the incision with a running chromic 3-0 stitch The hemorrhoids were sent separately and labeled as anterior and posterior hemorrhoidal columns. Once hemostasis was confirmed, I infiltrated the perianal area with Marcaine 0.5% for postop analgesia. Dressings were applied. The procedure was completed The patient tolerated procedure well. There were no immediate complications Initial and final counts of sponges and instruments were correct. Estimated blood loss was less than 25 cc. The patient is extubated without difficulty and transferred to the recovery room with stable vital signs
[2025-02-03] MEDS: diphenhydrAMINE HCL 50 MG/ML VIAL 25 MG IVPUSH (10:35)
== END 2025-02-03 11:17 | disposition home or self-care (01) ==
PROVIDERS: PCP Internal Medicine Medical Oncology; Visit Provider Surgery
PROC: (CPT 46260; principal; 2025-02-03 10:10)
DX: K64.8 Other hemorrhoids (principal); K62.5 Hemorrhage of anus and rectum; Z87.891 Personal history of nicotine dependence
CPT/HCPCS: 46260; 88304; J0131; J0690; J1100; J1200; J1885; J2003; J2250; J2405; J2704; J2795; J3010

== ENCOUNTER → 2025-02-03 07:21 | Outpatient (BNV) | payer OTHER, SELFPAY | PROVIDERS: PCP Internal Medicine Medical Oncology; Visit Provider Surgery | DX: K64.8 Other hemorrhoids (principal) | CPT/HCPCS: 46260 ==

== ENCOUNTER 2025-02-16 10:00 | Outpatient (AMB) | payer OTHER, SELFPAY ==
--- OUTSIDE RECORDS SUMMARY | 2024-12-05 07:45 | XMS_ITS ---
Author Organization Brandon Cabral III, MD Address [address] [place] [address] Care Team Providers Care Picker Packer Name Role Phone Brandon Cabral Primary Care [...] Date Provider Diagnosis Brandon Cabral III, MD [address] [place] [address] [address], [place] [address] 12/05/2024 Brandon Cabral Hypertension I10 ; Former [...] OV Provider Name:Brandon Cabral, 05/11/2025 11:00:00 AM, [address] [place] [address] DR, [address], [place], [address], Progress Notes * Nicholas OVERTON WDOB: 1 (64 yo M)Acc No.[id number]:12/05/2024 Patient: Nicholas GARZA W Provider: Kashmir Cabral MD :1960 A ge:64 Y S ex:Male Date:12/05/2024 Address: [address] [id number] Subjective: * Chief Complaints: * H emorrhoidHypertensionBenign [...] ocation of provider rendering services: { ...} [address] [place] [address] [address] [facility] [address] L ocation of patient: elaine ddress listed [...] femur fracture 1980tonsillectomy childcolonoscopy 05/2013colonoscopy, Dr. 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 * Medications: T akingTamsulosin HCl 0.4 [...] 12/05/2024 Generated for Brandi north/Frances/Chris on: 0 02/16/2025 10:37 AM EDT History and Physical Notes * HPI (History of Present Illness) Category Sub-Category Detail Notes Telehealth Location of [facility] rendering services:: {...} [address] [place] [address] [place] [address] Location of patient:: address listed in demographics [...]
--- NOTE | 2025-02-16 10:33 | MHC.OFFVIS ---
Vital Signs 02/16/25 10:34 Weight 179 lb BP 145/74 H Blood Pressure Location Rt brachial Position Sitting Pulse 75 Intake Visit Reasons: S/P hemorrhoidectomy Intake Note: Patient here s/p hemorrhoidectomy x2 columns on 02-03-2025. Patient c/o: no concerns. Denies bleeding, pain. No longer taking rx pain meds. Supervisor Type Disk Quality Control Required: No Accompanied by: Self / Same As Patient Allergies cefotetan Allergy (Mild, Verified 02/16/25 10:35) Rash bee pollen (BEE STINGS) Adverse Reaction (Severe, Verified 02/16/25 10:35) Anaphylaxis HPI HPI S/P hemorrhoidectomy: Details: He is here for follow-up after hemorrhoidectomy last 02/03/2025. He says he is doing ?great?. He denies any complaints. He says he feels much better and is happy with the outcome. [facility] Medical History Hemorrhoids with complication Hx of fracture of femur Hx of fracture of leg Tubular adenoma of colon Abdominal pain Flatulence Hemorrhoids Surgical History H/O hemorrhoidectomy (02/03/25) History of ankle surgery History of surgery on lower extremity Hx of colonoscopy Social History Household Members: None Are you a primary occasional caregiver to a significant other at home: No Do you presently have visiting nurse or other home services: No Alcohol intake: never Patient Tobacco Use Status: Former Tobacco user Current occupational status: employed Current occupation: [employer] Review of Systems Const Denies chills and Denies fever(s) Resp Denies cough GI Denies hematochezia Physical Exam Vital Signs: Last Vital Signs Pulse 75 02/16/25 10:34 BP 145/74 H 02/16/25 10:34 Const General: comfortable and no acute distress Resp Effort & Inspection: normal respiratory effort GI Other: Rectal exam shows the hemorrhoidectomy sites to be well healed, not infected Assessment & Plan Assessment & Plan (1) Hemorrhoids with complication: Code(s): K64.8 - Other hemorrhoids Category: Medical Plan: Status post hemorrhoidectomy. He is doing very well. His path report shows a prolapse-type polyp and hemorrhoids. I advised him to avoid straining and constipation. I recommended fiber supplementation. He can follow up on a p.r.n. basis. Coding Level of Care Code Global (04828) Diagnoses Hemorrhoids with complication K64.8
[2025-02-16 10:34] VITALS: BP 145/74; PULSE 75
--- OUTSIDE RECORDS SUMMARY | 2025-02-16 10:37 | XMS_ITS | Data Portability ---
Author Organization [facility] [address] Address [address] [place] [address] Assessment No assessment recorded. Plan of Treatment Reminders Order Date Submit Date Provider Last Modified By Organization Details Last Modified Time Details Appointments None recorded. Lab None recorded. Referral None recorded. Procedures None recorded. Surgeries None recorded. Imaging None recorded. Medication Orders triamcinolo ne acetonide 0.1 % topical cream 2022 023 [facility]acy #[id number], [address] [place], [address], 19:17:27 Patient TargetsNo targets recorded. Patient Instructions Encounter Date Encounter Id Patient Instructions Last Modified By Organization Details Last Modified Time 09/13/2022 [id number] controlling eczema (adult) information [email or web address] Not available 09/13/2022 19:17:56 Reason for Referral None Reported. Procedures Surgical History Date Name Laterality Status Provider Name and Address Organization Details Recorded Time colonoscopy completed AUGUST [facility] 09/13/2022 18:46:19 Imaging Results None [...] in Arterial blood by Pulse oximetry Systolic And Diastolic Provider Name and Address Organization Details Last Updated DateTime 185.42 cm 23.5 kg/m2 83375.4 4 g 98.6 [degF] 20 /min 88 /min 100 % 100 % 146/87 mm[Hg] AUGUST Marlow PA - [facility] 18:47:36 Social History Question Answer Notes LastModified by Ininal ion Details LastModified Time Tobacco Smoking Status Former Smoker AUGUST purdy PA - [facility] 09/13/2022 18:45:31 What Is Your Water Source? City Information not available 09/13/2022 What Is Your Heat Source? Gas Information not available 09/13/2022 Have You Had Direct Contact, Or Contact During Intimacy, With Monkeypox Rash, Scabs, Or Body Fluids From A Person With Monkeypox? No Information not available 09/13/2022 Have You Recently Traveled Abroad? No Information not available 09/13/2022 Sex: Unknown Functional Status Question Answer Note LastModified by Organizat ion Details LastModified Time Do you use any illicit or recreational drugs? No Information not available 09/13/2022 Do you or have you ever used any other forms of tobacco or nicotine? No Information not available 09/13/2022 What is your level of alcohol consumption? None Information not available 09/13/2022 Mental Status None recorded. Family History Relationship [...] SNOMED-CT Code Diagnosis ICD10 Code Diagnosis Note [id number] [address] [place] [address] 04/07/2020 10:36:20 04/07/2020 11:45:08 [id number] Jaleel Vicente DO [address] [place] [address] 09/13/2022 18:35:59 09/13/2022 19:19:27 Eczema [id number] L30.9 d/w patient bathing/sh owering recommenda tionsUse [...] Strickland Member ID Guarantor Name 09/27/2022 [address] [facility] (O) [id number] Nicholas Overton [id number] Nicholas Overton Notes Date Note Type [...] with out improvement Jaleel Vicente, DO [address] [place], [address], PA - [facility] 09/13/2022 19:18:11
--- OUTSIDE RECORDS SUMMARY | 2025-02-16 10:37 | XMS_ITS | Encounter Summary ---
Author Organization [facility] Address [address] [place] [address] Care Team Providers Care Nascar Racer Name Role Phone Catie Perry DDS Unavailable [phone] Encounter Details Date Type Department Care Team (Latest Contact Info) Description 02/19/2021 Abstract [facility] CONVERSIONS Dental, Provider, DDS Social History Tobacco [...] Care Team (Late st Contact Info) Description 05/05/2025 8:00 AM EDT Office Visit [facility] [address] [place] [address] Tico Roger documented as of this encounter Visit Diagnoses Not on filedocumented in this encounter Care Teams Nascar Racer Relationship Specialty Start Date End Date Catie Perry DDS [address] [place] [address] Resident Dental Finisher Operator 10/07/24 documented as of this encounter
== END 2025-02-16 10:42 | disposition home or self-care (01) ==
LOC: HO.HGS 10:01
PROVIDERS: PCP Internal Medicine Medical Oncology; Visit Provider Surgery
DX: K64.8 Other hemorrhoids (principal)
CPT/HCPCS: 99024

== ENCOUNTER → 2025-02-16 10:00 | Outpatient (BNVA) | payer OTHER, SELFPAY | PROVIDERS: PCP Internal Medicine Medical Oncology; Visit Provider Surgery | DX: K64.8 Other hemorrhoids (principal) | CPT/HCPCS: 99212 ==

== ENCOUNTER 2025-03-12 11:47 | Emergency (ER) | payer OTHER, SELFPAY ==
[2025-03-12 11:50] VITALS: BP 171/83; PULSE 75; RESP 16; TEMP 36.4; O2SAT 97; BMI 23.8
--- NOTE | 2025-03-12 12:00 | ED_ITS ---
HPI - General Adult General Chief complaint: Wound/Laceration Stated complaint: Lac Tip of Finger L Hand Time Seen by Provider: 03/12/25 11:56 Source: patient Mode of arrival: ambulatory Limitations: no limitations History of Present Illness ED Provider: Roberto Almeida HPI narrative: 64 yold male presents to the ED for left index laceration caused by cut by brush darryl while cutting his grass and bushed. Related Data Home Medications ?Medication ?Instructions ?Recorded ?Confirmed tamsulosin 0.4 mg capsule 0.4 mg PO DAILY 12/19/20 Previous Rx's ?Medication ?Instructions ?Recorded docusate sodium 100 mg capsule 200 mg (2 x 100 mg) PO BEDTIME 30 06/07/21 (Colace) days #60 caps tacrolimus 0.03 % topical ointment 1 appl topical BID #30 grams 11/29/22 hydrocortisone 2.5 % topical cream 1 appl OK BID PRN h emorrhoids #30 05/28/23 with perineal applicator grams (Proctozone-HC) docusate sodium 100 mg capsule 100 mg PO BID #60 caps 02/03/25 (Colace) ibuprofen 600 mg tablet 600 mg PO Q6H PRN pain #30 t abs 02/03/25 Allergies Allergy/AdvReac Type Severity Reaction Status Date / Time cefotetan Allergy Mild Rash Verified 03/12/25 11:56 bee pollen (BEE STINGS) AdvReac Severe Anaphylaxis Verified 03/12/25 11:56 Review of Systems 2 Review of Systems: Left index laceration Yes all other systems are reviewed and are negative PMFSH Past Medical History Medical History Hemorrhoids with complication Hx of fracture of femur Hx of fracture of leg Tubular adenoma of colon Abdominal pain Flatulence Hemorrhoids Surgical History H/O hemorrhoidectomy (02/03/25) History of ankle surgery History of surgery on lower extremity Hx of colonoscopy Social History Social History Household Members: None Are you a primary care administrative tech to a significant other at home: No Do you presently have visiting nurse or other home services: No Alcohol intake: never Patient Tobacco Use Status: Former Tobacco user Advance Directives: No Advance Directives Information Provided: No Current occupational status: employed Current occupation: [employer] Physical Exam ED Vital Signs: Vital Signs - 24 hr 03/12/25 11:50 Temperature 97.5 F Pulse Rate 75 Respiratory Rate 16 Blood Pressure 171/83 H Pulse Oximetry 97 Oxygen Delivery Method Room Air BMI result Body Mass Index 23.8 Const General: cooperative, healthy appearing, comfortable, no acute distress, well developed, alert, awake and Physically active Orientation/consciousness: patient oriented x3 [facility] Head: Yes normal to inspection, Yes No palpable skull fracture present, Yes normocephalic and Yes atraumatic Eyes General: appearance normal, both eyes and all related structures Neck Neck: Yes normal visual inspection, Yes full ROM, Yes no lymphadenopathy, Yes no meningeal signs, Yes trachea midline, Yes supple, No anterior neck swelling and No tender Chest Chest palpation & inspection: normal inspection of the chest and normal palpation of entire chest wall Resp Effort & Inspection: normal respiratory effort and able to speak in complete sentences Auscultation: clear to auscultation bilaterally Cardio Jugular venous distension: no JVD Heart sounds: S1 normal heart sound present and S2 normal heart sound present GI Inspection: Yes normal to inspection Palpation (GI): Soft to palpation, not firm, nontender and no guarding General: Yes no CVA tenderness Back/Spine/Pelvis Back: no CVA tenderness and No back tenderness Skin General skin exam: no rashes or lesions noted, elasticity normal and turgor normal Neuro General: patient oriented x3, gait normal, tone normal, moves all extremities, Normal light touch and pain sensation, no meningeal signs, no focal motor deficits and CN's II-XI intact bilaterally Extrem General: Yes normal to inspection, Yes full ROM and Yes capillary refill normal Hand/finger images: 2 1. superficial laceration without any bone exposure or profuse bleeding. NO signs of nerve or tendon injury. rest of extremity is normal. motor, neuro, and vascular exam is intact. 2. superficial laceration without any bone exposure or profuse bleeding. NO signs of nerve or tendon injury. rest of extremity is normal. motor, neuro, and vascular exam is intact. Psych Appearance: grossly normal, well kempt and not disheveled Medications Administered Discontinued Medications Generic Name Dose Route Start Last Admin Trade Name Freq PRN Reason Stop Dose Admin Diphtheria/Tetanus/Acell Pertussis 0.5 ml 03/12/25 11:56 03/12/25 12:06 Diphth,Pertus(Acell),Tet Adult 0.5 Ml Syringe IM 03/12/25 11:57 0.5 ml .ONCE ONE Administration Medical Decision Making Medical Decision Making [facility] Narrative: 64 yold male presents to the ED for lacerations to left index and ring finger due to a darryl while cutting bushes, patient unaware when last time he had tetanus shot. Patient has complete range of motion of fingers. no signs of nerve/tendon injury. Very superficial laceratoins. Dermabonde will be used. NOt suspecting finger fracture. no need for xrays. 12: 37pm: wound clenaed with sterile saline pivodine iodine used to clearn the wounds. Dermabond placed on wounds for superficial lacerations. sterile strip placed. Patient explaiend worrisome signs and informed to return to the ED if she has them. Differential Diagnosis Differential Diagnoses: The differential diagnosis associated with the presentation includes (Laceration abrasion) Admission/Observation Consideration of admission/observation: Escalation of care including admission/observation considered Independent Historian Clinical information obtained from an independent historian. History obtained from or confirmed by: Other (Patient) Prescription Management I considered prescription management with: Pain Medication Discharge Plan Discharge Clinical Impression: Laceration Patient Disposition: Home, Self-Care Instructions: Laceration (ED), Skin Adhesive Care (ED), Skin Adhesive Strips (ED) Additional Instructions: Keep wound dry for the 1st 48 hours. Recommend follow up with primary care provider. Return to the ED for any swelling, redness, pus discharge, foul odor, fever, chills, or any other concerning symptoms. Prescriptions: No Action docusate sodium [Colace] 100 mg capsule 200 mg PO BEDTIME 30 Days Qty: 60 3RF tacrolimus 0.03 % ointment 1 appl topical BID Qty: 30 0RF docusate sodium [Colace] 100 mg capsule 100 mg PO BID Qty: 60 2RF ibuprofen 600 mg tablet 600 mg PO Q6H PRN (Reason: pain) Qty: 30 0RF tamsulosin 0.4 mg capsule 0.4 mg PO DAILY hydrocortisone [Proctozone-HC] 2.5 % cream with perineal applicator 1 appl OK BID PRN (Reason: hemorrhoids) Qty: 30 3RF Rx Instructions: apply OK BID prn Stand Alone Forms: Work/School Release Interventions: ED Discharge Assessment Last Done: 03/12/25 12:53 Discharge Date/Time: 03/12/25 12:53 Print Language: Korean
[2025-03-12] MEDS: Diphth,Pertus(ACell),Tet Adult 0.5 ML SYRINGE IM (12:06)
[2025-03-12 12:53] VITALS: BP 171/83; PULSE 75; RESP 16; TEMP 36.4; O2SAT 97
== END 2025-03-12 12:53 | disposition home or self-care (01) ==
PROVIDERS: Emergency Provider Emergency Medicine; PCP Internal Medicine Medical Oncology
DX: S61.211A Laceration without foreign body of left index finger without damage to nail, initial encounter (principal); W27.1XXA Contact with garden tool, initial encounter; Y93.9 Activity, unspecified; Y92.9 Unspecified place or not applicable; Y99.8 Other external cause status; Z79.899 Other long term (current) drug therapy; Z87.891 Personal history of nicotine dependence; Z23 Encounter for immunization
CPT/HCPCS: 90471; 90715; 99282; 99284

== ENCOUNTER 2025-04-22 07:44 | Outpatient (REF) | payer OTHER, SELFPAY ==
--- OUTSIDE RECORDS SUMMARY | 2024-12-01 07:26 | XMS_ITS ---
Author Organization Brandon Cabral III, MD Address [address] [place] [address] [place] [address] Care Team Providers Care Accounts Payable Or Receivable Clerk Name Role Phone Brandon Cabral Primary Care Provider REASON FOR VISIT Message Social History Sex Assigned At : Social History Observation Description Sex Assigned At Male Encounters Encounter Location Date Provider Diagnosis Brandon Cabral III, MD [address] [place] [address] [place] [address] 12/01/2024 Brandon Cabral Plan Of Treatment Next Appt Details Provider Name:Brandon Cabral, 05/11/2025 11:00:00 AM, [address] [place] [address] [place], [address], Progress Notes * Nicholas OVERTON WDOB: 1 (64 yo M)Acc No.[id number]:12/01/2024 Patient: Joshua ARROYONicholas Vidal :1960 A ge:64 Y S ex:Male Address: [place] [address] * true * Date: Generated for Printi mary anne/Gregorg/eTransmitting on: 0 04/22/2025 07:47 AM EDT
--- OUTSIDE RECORDS SUMMARY | 2024-12-05 07:45 | XMS_ITS ---
Author Organization Brandon Cabral III, MD Address [address] [place] [address] Care Team Providers Care Occupational Health Physiotherapist Name Role Phone Brandon Cabral Primary Care Provider Allergies Allergen (clinical drug ingredient) Drug/Non Drug [...] Date Provider Diagnosis Brandon Cabral III, MD [address] [place] [address] [address] [place], [place] [address] 12/05/2024 Brandon Cabral Hypertension I10 ; Former [...] 1 capsule Orally Once a day 12/18/19 Zinc + Vitamin C 20-120 MG 1 lozenge as needed Mouth/Throat Six times a day Next Appt Details Follow Up: As Scheduled, Nadya son: OV Provider Name:Brandon Cabral, 05/11/2025 11:00:00 AM, [address] [place] [address] DR, [address], [place], [address], Progress Notes * Nicholas OVERTON WDOB: 1 (64 yo M)Acc No.[id number]:12/05/2024 Patient: Nicholas GARZA W Provider: Kashmir Cabral MD :1960 A ge:64 Y S ex:Male Date:12/05/2024 Address: [address] [id number] Subjective: * Chief Complaints: * H emorrhoidHypertensionBenign [...] ocation of provider rendering services: { ...} [address] [place] [address] [address] [facility] [address] L ocation of patient: elaine ddress listed in demographics for today's visit P atient identification confirmed using: N vince, T elehealth method: T elephone only. Patient [...] femur fracture 1980tonsillectomy childcolonoscopy 05/2013colonoscopy, Dr. 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 He was born in [place], [place]. * Medications: T akingTamsulosin HCl 0.4 [...] Cabral MD Date: 0 12/05/2024 Generated for Brandi north/Frances/Chris on: 0 04/22/2025 07:47 AM EDT History and Physical Notes * HPI (History of Present Illness) Category Sub-Category Detail Notes [facility]...} [address] [place] [address] [address] [place] [address] Location of patient:: address listed in demographics [...]
--- OUTSIDE RECORDS SUMMARY | 2025-03-09 08:00 | XMS_ITS ---
Author Organization Brandon Cabral III, MD Address [address] [place] [address] [place] [address] Care Team Providers Care Tandem Mill Sticker Name Role Phone Brandon Cabral Primary Care Provider [phone] REASON FOR VISIT Follow up Social History Sex Assigned At : Social History Observation Description Sex Assigned At Male Encounters Encounter Location Date Provider Diagnosis Brandon Cabral III, MD [address] [place] [address] [place] [address] 03/09/2025 Brandon Cabral Plan Of Treatment Next Appt Details Provider Name:Brandon Cabral, 05/11/2025 11:00:00 AM, [address] [place] [address] [place], [address], Progress Notes * Nicholas OVERTON WDOB: (65 yo M)Acc No.[id number]:03/09/2025 Progress Notes Patient: Nicholas GARZA Provider: Kashmir Cabral MD :1960 A ge:64 Y S ex:Male Date:03/09/2025 Address:[address] [id number] Subjective: * Chief Complaints: * 1 . [...] 0 03/09/2025 Generated for Brandi north/Frances/Nimoitting on: 0 04/22/2025 07:47 AM EDT
--- OUTSIDE RECORDS SUMMARY | 2025-03-20 05:36 | XMS_ITS ---
Author Organization Brandon Cabral III, MD Address [address] [place] [address] [place] [address] Care Team Providers Care Virtual Customer Assistant Name Role Phone Brandon Cabral Primary Care Provider [phone] REASON FOR VISIT Refills Medications Medication SIG (Take, Route, Frequency, Duration) Notes Start Date End Date Status EPINEPHrine 0.15 MG/0.3ML as directed In jection if stung by by bee for 30 days 03/28/2024 Active Social History Sex Assigned At : Social History Observation Description Sex Assigned At Male Encounters Encounter Location Date Provider Diagnosis Brandon Cabral III, MD [address] [place] [address] [place] [address] 03/20/2025 Brandon Cabral Hypertension I10 Assessments Encounter [...] days 03/28/2024 Next Appt Details Provider Name:Brandon Cabral, 05/11/2025 11:00:00 AM, [facility] [address], [place], [address], Progress Notes * Nicholas OVERTON WDOB: (65 yo M)Acc No.[id number]:03/20/2025 Patient: Nicholas GARZA :1960 A ge:65 Y S ex:Male Address: [place] [address] * Refills Refill EPINEPHrine Solution Auto-injector, 0.15 MG/0.3ML, Injection, 1, as directed, if stung by by bee, 30 days, Refills=11 * true * Date: Generated for Brandi north/Frances/Nimoitting on: 0 04/22/2025 07:47 AM EDT
--- OUTSIDE RECORDS SUMMARY | 2025-03-20 05:37 | XMS_ITS ---
Author Organization Brandon Cabral III, MD Address [address] [place] [address] [place] [address] Care Team Providers Care Champagne Maker Name Role Phone Brandon Cabral Primary Care Provider REASON FOR VISIT Needs lab order form for next appt Social History Sex Assigned At : Social History Observation Description Sex Assigned At Male Encounters Encounter Location Date Provider Diagnosis Brandon Cabral III, MD [address] [place] [address] [place] [address] 03/20/2025 rBandon Cabral Hypertension I10 ; Benign prostatic hyperplasia [...] fat and his diet. Plan Of Treatment Pending Test Test Name Order Date PROFILE, FASTING (COMPREHENSIVE METABOLI C) 03/20/2025 PSA, TOTAL 03/20/2025 CBC w DIFF 03/20/2025 Lipid Panel 03/20/2025 Vitamin D 25-OH Total 03/20/2025 Next Appt Details Provider Name:Brandon Cabral, 05/11/2025 11:00:00 AM, [address] [place] [address] [address], [place], [address], Progress Notes * Nicholas OVERTON WDOB: (65 yo M)Acc No.[id number]:03/20/2025 Patient: Nicholas GARZA :1960 A ge:65 Y S ex:Male Address:[address] [place] [address] Subjective: * Chief Complaints: * N eeds [...] * Date: Generated for Brandi north/Frances/Chris on: 0 04/22/2025 07:48 AM EDT
--- OUTSIDE RECORDS SUMMARY | 2025-04-22 07:47 | XMS_ITS | Encounter Summary ---
Author Organization [employer] Address [address] [facility] 7[address] [place] [address] Care Team Providers Care Supervisor Extrusion Name Role Phone Catie Perry DDS Unavailable Unavailabl e Encounter Details Date Type Department Care Team (Latest Contact Info) Description 02/19/2021 Abstract [facility] Dental, Provider, DDS Social History Tobacco [...] Description 05/05/2025 8:00 AM EDT Office Visit [facility] [address] [place] [address] Tico Roger documented as of this encounter Visit Diagnoses Not on filedocumented in this encounter Care Teams Supervisor Extrusion Relationship Specialty Start Date End Date Catie Perry DDS Resident Dental Business Transformation Consultant 10/07/24 documented as of this encounter
--- OUTSIDE RECORDS SUMMARY | 2025-04-22 07:47 | XMS_ITS | Clinical Summary ---
Author Organization [employer] Address [address] [facility] 7[address] [place] [address] Care Team Providers Care Plastic Molder Name Role Phone Catie Perry DDS Unavailable Unavailabl e Allergies Active Allergy Reactions Criticality Noted Date [...] Encounters Date Type Department Care Team Description 04/11/2025 1:00 PM EDT Office Visit [facility] [address] [place] [address] Milo Krishnamurthy DMD Defective dental yazidi (Primary Dx); Dental caries 04/10/2025 11:30 AM EDT Office Visit [facility] [address] [place] [address] Milo Krishnamurthy DMD Defective dental yazidi (Primary Dx) from Last 3 Months Social History Tobacco [...] Sign Reading Time Taken Comments Blood Pressure 140/90 04/11/2025 1:08 PM EDT Pulse 65 10/28/2024 8:07 AM EDT Temperature - - Respiratory Rate - - Oxygen Saturation - - Inhaled Oxygen Concentration - - Weight - - Height - - Body Mass Index - - Plan of Treatment Upcoming Encounters Date Type Department Care Team (Late st Contact Info) Description 05/05/2025 8:00 AM EDT Office Visit [facility] [address] [place] [address] Tico Roger Health Maintenance Due Date Last Done Comments CT Colonography 1960 Colonoscopy 1961 Colorectal Cancer Screening 1961 Depression Screening 1961 FIT DNA/Cologuard 1961 FIT 1961 FOBT 1960 HIV Screening 1961 Lipid Panel 1961 SDOH Screening 1961 Sigmoidoscopy 1961 Disability Screening 1961 Alcohol/Substance Use Screening 1973 Hepatitis C Screening 1979 Pneumococcal Vaccine: 50+ Years (1 of 1 - PCV) 2011 Zoster Vaccines (1 of 2) 2011 Influenza Vaccine (#1) 2025 , 05/04/2023, 04/28/2022, Additional history exists Dental Oral Exam 05/01/2025 10/28/2024, 02/19/2021 Dental Prophylaxis 05/01/2025 10/28/2024, 02/28/2021 Dental X-Ray: Bitewings 05/11/2025 05/10/2024, 02/19 Tobacco Screening 04/11/2026 04/11/2025 Dental X-Ray: Full Mouth 05/18/2027 024, 05/10/2024, 03/07/2021, Additional history exists DTaP/Tdap/Td Vaccines (3 - Td or Tdap) 03/12/2035 03/12/2025, 03/21/2022 RSV Patients and Patients Aged 60 years or older (1 - 1-dose 75+ series) 2036 COVID-19 Vaccine Completed 04/24/2024, , 04/30/2022, Additional history exists HIB Vaccines Aged Out [...] Procedure Name Priority Date/Time Associated Diagnosis Comments 10 PULP CAP - INDIRECT (EXCLUDING FINAL GNOSTICISM) Routine 04/11/2025 1:00 PM EDT Defective dental yazidi Dental caries CASE PRESENTATION, DETAILED AND EXTENSIVE TREATMENT PLANNING Routine 04/11/2025 1:00 PM EDT Defective dental yazidi Dental caries 10 MDFL RESIN-BASED COMPOSITE - 4 OR MORE SURFACES (ANTERIOR) Routine 04/11/2025 1:00 PM EDT Defective dental yazidi Dental caries CASE PRESENTATION, DETAILED AND EXTENSIVE TREATMENT PLANNING Routine 04/10/2025 11:30 AM EDT Defective dental yazidi INTRAORAL - PERIAPICAL FIRST RADIOGRAPHIC IMAGE Routine 04/10/2025 11:30 AM EDT Defective dental yazidi LIMITED ORAL EVALUATION - PROBLEM FOCUSED Routine 04/10/2025 11:30 AM EDT Defective dental yazidi 10 DFL COMPOSITE FILLING Routine 025 12:00 AM EDT PERIODIC ORAL EVALUATION - ESTABLISHED PATIENT Routine 10/28/2024 10:00 AM EDT PROPHYLAXIS - ADULT Routine 10/28/2024 8 :00 AM EDT PANORAMIC RADIOGRAPHIC IMAGE Routine 05/17/2024 9:30 AM EDT INTRAORAL - COMPLETE SERIES OF RADIOGRAPHIC IMAGES Routine 05/10/2024 8:00 AM EDT Dental caries from Last 3 Months or Most Recently Relevant to Health Maintenance Insurance DENTAL - HSN PARTIAL (MEDICAID) Care Teams Plastic Molder Relationship Specialty Start Date End Date Catie Perry DDS Resident Dental Sales Account Manager 10/07/24
--- OUTSIDE RECORDS SUMMARY | 2025-04-22 07:48 | XMS_ITS | Clinical Summary ---
Author Organization [facility] it[facility] Address [address] [place] [address] Care Team Providers Care Clip Coater Name Role Phone Unavailable Primary Care Provider [...] 2011 Zoster Vaccines (1 of 2) 2011 Depression Screening 08/17/2024 COVID-19 Vaccine (1 - 2023-2 5 season) 2025 Influenza Vaccine (#1) 2025 RSV Immunization Adult Patie nts (1 [...]
--- OUTSIDE RECORDS SUMMARY | 2025-04-22 07:48 | XMS_ITS | Patient Health Record ---
Author Organization Brandon Cabral III, MD Address [address] [place] [address] [address] [place] [id number] Care Team Providers Care Rigging Up Worker Name Role Phone Brandon Cabral Primary Care Provider [phone] Allergies Allergen (clinical drug ingredient) Drug/Non Drug [...] 0.2 - 1.3 BLD Negative Negative - Pathology Reviewed date:02/15/2025 03:54:59 PM Interpretation: Performing Lab:[facility], [address] [place] [phone] Notes/Report: Name: Nicholas Overton ge/Sex: 64/M : 1960 [facility]#: [id number] Unit#: [id number] Attend Dr: Mark Licea MD Re02/03/25 Status : [facility] Location: [facility] Disch: SPEC : [id number] RECD : 02/03/25-1010 STATUS: [facility] NUM: [id number] LUANN: 02/03/25-[address] [facility] [address]: Mark Licea MD ENTERED: 02/03/25-06 04 SP TYPE: Surgical OTHR DR: Brandon Cabral MD ORDERED: Gross Micro L3/2 Diagnosis A. Anal tissue, post erior hemorrhoid, excision: Polypoid anorectal mucosa with surface erosion and features of mucosal prolapse-type polyp. B. Anal tissue, ante rior hemorrhoid, excision: Anorectal mucosa with submucosal, dilated and congeste d vessels consistent with hemorrhoids. Clinical History Other hemorrhoids Microscopic Description Microscopic sections reviewed. Material Received A. Posterior hemorrhoid B. Anterior hemorrhoid Gross Description Received in 2 parts. A. Received in forma [employer] labeled ?posterior hemorrhoid? is a portion of glabrous skin and anal mucosa measurin g 2.5 x 2.0 x 1.8 cm in greatest dimension. The skin surface is pink- singh, intact and wrin kled. The underside is red-singh and shaggy in appearance. Sectioning reveals a pink white cut surface with a few dilated, blood-filled vessels. Civil Transportation Engineer sections are submitt ed for microscopic examination, 2 pieces in cassette A. B. Received in forma [employer] labeled ?anterior hemorrhoid? is a portion of glabrous skin and anal mucosa measurin g 2.0 x 1.9 x 1.5 cm in greatest dimension. The skin surface is pink- singh, intact and wrin kled. The underside is pink-singh and shaggy in appearance. Sectioning reveals a pink white cut surface with a few dilated, blood-filled vessels. Civil Transportation Engineer sections are submitt ed for microscopic examination, 2 pieces in cassette B. ([facility]) IHC S/NG Disclaimer NOTE: Unless otherwi se stated, all tissue is formalin-fixed and paraffin-embedded. Some or all of the immunohis tochemical tests reported herein may have been developed and their performance characte ristics determined by [facility]. They have not been cleared or appr patti by the U.S. Food and Drug Administration (FDA). However, the FDA has determined that such clearance or approval is not necessary. This laboratory is CONTINUED ON NEXT PAGE Name: Nicholas Overton Colleen ge/Sex: 64/M : 1960 Unit#: [id number] Attend Dr: Mark Licea MD Re02/03/25 Status : [facility] Location: [facility] Disch: SPEC : [id number] RECD : 02/03/25-1010 STATUS: [facility] NUM: [id number] LUANN: 02/03/[address] [facility] [address]: Mark Licea MD ENTERED: 02/03/25- 19 SP TYPE: Surgical OTHR DR: Brandon Cabral MD ORDERED: Gross Micro L3/2 IHC S/NG Disclaimer (Continued) certified under the Clinical Laboratory Improvement Amendments of 1988 (CLIA) as qualified to perform high comp lexity clinical laboratory testing. Copies To: Brandon Cabral MD [address] [place] [address], [address], [place] [id number] Mark Licea MD [facility] [address] [place] [address] Signed (si gnature on file) Daria Tabares MD 02/06/25 1124 END OF REPORT Reason For Referral Reason Large hemorrhoid ref ractory to steroids and citz baths ? excision or biopsy Diagnosis 1 Mass of anus (K62.89 ) Diagnosis 2 Hemorrhoids, externa l (K64.4) Referral Organization Brandon Cabral III, MD Referring Provider First Name Brandon Referring Provider Last Name Misha Referring Provider Speciality Internal M edicine Referred Provider MARK LICEA Referred Provider Specialty Surgery Referral Priority Routine Referral Appointment Date 09/05/2024 Medications Medication SIG (Take, Route, Frequency, Duration) Notes Start Date End Date Status Vitamin D3 10 MCG (400 UNIT) 1 tablet Or ally Once a day Active Hydrocortisone 2.5 % 1 application Exter tristen three times a day 11/03/2024 Active Zinc + Vitamin C 20-120 MG 1 lozenge as needed Mouth/Throat Six times a day Active Tamsulosin HCl 0.4 MG TAKE 1 CAPSULE BY MOUTH EVERY DAY FOR 30 DAYS for 30 Active EPINEPHrine 0.15 MG/0.3ML as directed In jection if stung by by bee for 30 days 03/28/2024 Active Immunizations Vaccine Route Administration Date Status [...] Problem Status W/U Status Risk Notes Problem 5954705 Former smoker (Z87.891) Active confirmed He is highly motivated not to smoke. We discussed a plan for prevention of relapse in times of stress and illness. Problem 843607974 Tubular adenoma (D36.9) Active confirmed Gastroenterolog ist found 3 tubular adenomas on his recent colonoscopy. He will have a colonoscopy every 5 years. Problem 25604302 Hypertension (I10) Active confirmed His blood press ure has been normal and no change in his regimen was needed.He will be in the office in 72 hours and have his blood pressure checked again. Problem 811526517 Environmental allergies (Z91.09) Active confirmed He will have a trial of an antihistamine. He will return in one week. If there is no improvement. Problem 69918541 Vitamin D deficiency (E55.9) Active confirmed Problem 49179281 Hyperlipidemia, unspecified hyperlipidemia type (E78.5) Active confirmed His lipids are stable. No change in his regimen was made. We had a discussion about reduce the amount of animal fat and his diet. Problem 62685890 Femur fracture (S72.90XA) Active confirmed He continues to have occasional pain at the fracture site, but it is improving. Problem 3436505 Helicobacter pylori (H. pylori) (A04.8) Active confirmed He is using a nondrowsy antihistamine when working outdoors. Problem 439690906 Benign prostatic hyperplasia with lower urinary tract symptoms (N40.1) Active confirmed He arises from sleep once or twice a night to urinate. We have discussed lifestyle modification as a way to control nocturia. Without medication. Problem 69264186 Constipation, unspecified constipation type (K59.00) Active confirmed History constipation has resolved with use of laxatives and fiber. Problem 646919134 Sensorineural hearing loss (SNHL) of both ears (H90.3) Active confirmed He is wearing h is hearing aids and is pleased with their affect. 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 Problem 30646108 Hemorrhoids, external (K64.4) Active confirmed The mass is unchanged and has not really spondylytic to topical steroids. He is being referred back to surgery for reconsideration of excision and an opinion as to its true nature. Problem 282123509 Mass of anus (K62.89) Active confirmed The [...] Date Provider Diagnosis Brandon Cabral III, MD [address] [place] [address] [place] [id number] 05/06/2024 Brandon Cabral Allergy to bee sting Z91.030 ; Encounter for immunization Z23 ; Hypertension I10 ; Former smoker Z87.891 ; Sensorineural hearing loss (SNHL) of both ears H90.3 ; Constipation, unspecified constipation type K59.00 and Benign prostatic hyperplasia with lower urinary tract symptoms N40.1 Brandon Cabral III, MD [address] [place] [address] [place] [phone] 08/12/2024 Brandon Cabral Allergy to bee sting Z91.030 ; Hypertension I10 ; Former smoker Z87.891 ; Benign prostatic hyperplasia with lower urinary tract symptoms N40.1 and Mass of anus K62.89 Brandon Cabral III, MD [address] [place] [address] [place] [phone] 08/15/2024 Brandon Cabral Allergy to bee sting Z91.030 ; Hemorrhoids, external K64.4 and Encounter for immunization Z23 Brandon Cabral III, MD [address] [place] [address] [place] [phone] 09/05/2024 Brandon Cabral Hemorrhoids, externa l K64.4 ; Hypertension I10 ; Former smoker Z87.891 ; Benign prostatic hyperplasia with lower urinary tract symptoms N40.1 ; Environmental allergies Z91.09 and Sensorineural hearing loss (SNHL) of both ears H90.3 Brandon Cabral III, MD [address] [place] [address] [place] [phone] 11/03/2024 Brandon Cabral Hemorrhoids, externa l K64.4 ; Hypertension I10 ; Former smoker Z87.891 ; Sensorineural hearing loss (SNHL) of both ears H90.3 ; Constipation, unspecified constipation type K59.00 and Hyperlipidemia, unspecified hyperlipidemia type E78.5 Brandon Cabral III, MD [address] [place] [address] [place] [id number] 12/01/2024 Brandon Cabral Hemorrhoids, externa l K64.4 ; Constipation, unspecified constipation type K59.00 ; Hyperlipidemia, unspecified hyperlipidemia type E78.5 ; Sensorineural hearing loss (SNHL) of both ears H90.3 ; Benign prostatic hyperplasia with lower urinary tract symptoms N40.1 ; Hypertension I10 and Former smoker Z87.891 Brandon Cabral III, MD [address] [place] [address] [place] [id number] 12/05/2024 Brandon Cabral Hypertension I10 ; Former smoker Z87.891 ; Sensorineural hearing loss (SNHL) of both ears H90.3 ; Environmental allergies Z91.09 ; Constipation, unspecified constipation type K59.00 and Mass of anus K62.89 Brandon Cabral III, MD [address] [place] [address] [place] [id number] 09/05/2024 Brandon Cabral III, MD [address] [place] [address] [place] [id number] 12/01/2024 Brandon Cabral III, MD [address] [place] [address] [place] [phone] 03/20/2025 Brandon Cabral Hypertension I10 Brandon Cabral III, MD [address] [place] [address] [place] [id number] 03/20/2025 Brandon Cabral Hypertension I10 ; Benign prostatic hyperplasia with lower urinary tract symptoms N40.1 ; Vitamin D deficiency E55.9 ; Tubular adenoma D36.9 and Hyperlipidemia, unspecified hyperlipidemia type E78.5 Assessments Encounter Date Diagnosis (ICD Code) Assessment Notes Treat ment Notes Treatment Clinical Notes 05/06/2024 Encounter for immunization (ICD-10 - Z23) [...] and have his blood pressure checked again. 03/20/2025 Hypertension (ICD-10 - I10) His blood pressure has been normal and no change in his regimen was needed.He will be in the office in 72 hours and have his blood pressure checked again. 03/20/2025 Hypertension (ICD-10 - I10) 05/06/2024 Hypertension (ICD-10 - I10) His blood [...] aids and is pleased with their affect. 03/20/2025 Benign prostatic hyperplasia with lower urinary tract symptoms (ICD-10 - N40.1) 05/06/2024 Former smoker (ICD-10 - Z87.891) He [...] one week. If there is no improvement. 03/20/2025 Vitamin D deficiency (ICD-10 - E55.9) 05/06/2024 Sensorineural hearing loss (SNHL) of both [...] to the office on the next business at 9 AM for examination and treatment. [...] resolved with use of laxatives and fiber. 03/20/2025 Tubular adenoma (ICD-10 - D36.9) 05/06/2024 Constipation, unspecified constipation type (ICD-10 - [...] him back to surgery for second opinion. 03/20/2025 Hyperlipidemia, unspecified hyperlipidemia type (ICD-10 - E78.5) His lipids are stable. No change in his regimen was made. We had a discussion about reduce the amount of animal fat and his diet. 05/06/2024 Benign prostatic hyperplasia with lower urinary [...] of stress and illness. Plan Of Treatment Pending Test Test Name Order Date PROFILE, FASTING (COMPREHENSIVE METABOLI C) 05/04/2023 PROFILE, FASTING (COMPREHENSIVE METABOLI C) 06/01/2018 PROFILE, FASTING (COMPREHENSIVE METABOLI C) 06/13/2019 PROFILE, FASTING (COMPREHENSIVE METABOLI C) 12/04/2021 PROFILE, FASTING (COMPREHENSIVE METABOLI C) 03/20/2025 PROFILE, FASTING (COMPREHENSIVE METABOLI C) 09/04/2020 PROFILE, [...] TSH (THYROID STIMULATING HORMONE) 2021 PSA, TOTAL 02/20/2022 PSA, TOTAL 05/04/2023 PSA, TOTAL 03/20/2025 PSA, TOTAL 01/07/2024 PSA, TOTAL 06/13/2019 PSA, TOTAL 09/04/2020 PSA, TOTAL 11/24/2022 MICROALBUMIN, RANDOM 12/04/2021 CBC w DIFF 09/04/2020 CBC w DIFF 11/24/2022 CBC w DIFF 12/04/2021 CBC w DIFF 09/03/2023 CBC w DIFF 06/04/2020 CBC w DIFF 02/20/2022 CBC w DIFF 05/04/2023 CBC w DIFF 03/20/2025 CBC w DIFF 06/13/2019 VITAMIN D 25-OH TOTAL 09/04/2020 CBC WITH AUTO DIFF 01/07/2024 Lipid Panel 03/20/2025 Lipid Panel 01/07/2024 Lipid Panel 09/03/2023 Vitamin D 25-OH Total 03/20/2025 Next Appt Details Provider Name:Brandon Cabral, 05/11/2025 11:00:00 AM, [address] [place] [address] [address], [place], [address], Insurance Providers Payer Name Payer Address Payer Phone Subscriber Number Group Number Insured Name Patient Relationship to Insured Coverage Start Date Coverage End Date [employer] [address] [address] [place] [address] [id number] Nicholas Overton Self - patient is the insured Medical (General) History Medical History History ICD Code Hematochezia due to hemorrhoids T & A weight loss diarrhea former smoker tubular adenoma 2012 Benign prostatic hypertrophy Surgical History Surgery Date(Month/Year) No history colonoscopy, Dr. Cruz, [facility], 3 tubular adenomas 05/2020 colonoscopy 05/2013 tonsillectomy child left femur fracture 1980 Hospitalization History Reason Date(Month/Year) No history
[2025-04-22 08:08] LABS: MANUAL DIFF FLAG NO
[2025-04-22 09:23] LABS: Hematocrit 42.3 % (42.0-52.0); Hemoglobin 14.0 g/dl (14.0-18.0); Imm Gran Abs Auto 0.02 X10*3/uL (0.00-0.03); Imm Gran Pct Auto 0.3 % (0.0-0.4); Lymphocytes Absolute Auto 2.4 X10*3/uL (1.2-4.9); Mean Corpuscular HGB Conc 33.1 g/dl (31.0-36.0); Mean Corpuscular Hemoglobin 29.9 pg (27.0-33.0); Mean Corpuscular Volume 90.4 fL (80.0-98.0); NRBC Abs Auto 0.000 X10*3/uL (0.0-0.012); NRBC Pct Auto 0.0 /100WBC (0.0-0.2); Platelet Count 248 X10*3/uL (160-400); Red Blood Count 4.68 X10*6/uL (4.60-5.80); White Blood Count 7.3 X10*3/uL (4.8-10.8)
[2025-04-22 10:56] LABS: Alanine Aminotransferase 25 U/L (0-40); Albumin Level 4.4 g/dL (3.5-5.0); Alkaline Phosphatase 74 U/L (39-117); Anion Gap 13 (12-20); Aspartate Amino Transferase 30 U/L (5-37); Blood Urea Nitrogen 22 mg/dL (9-16); Calcium 9.2 mg/dL (8.4-10.2); Carbon Dioxide 29 mmol/L (22-29); Chloride 105 mmol/L (96-108); Cholesterol 218 mg/dL (<200); Estimated Glomerular Filt Rate > 60; HDL Cholesterol 54 mg/dL (>40); Potassium 4.1 mmol/L (3.3-5.1); Sodium 143 mmol/L (135-145); Total Protein 7.0 g/dL (6.5-8.0); Triglycerides 79 mg/dL (<150)
[2025-04-22 11:04] LABS: PSA,Total (Free>4and<10) 3.84 ng/mL (0.00-4.00)
== END 2025-04-22 07:45 | disposition home or self-care (01) ==
LOC: HO.LAB 07:44
PROVIDERS: PCP Internal Medicine Medical Oncology; Visit Provider Internal Medicine Medical Oncology
DX: N40.1 Benign prostatic hyperplasia with lower urinary tract symptoms (principal); I10 Essential (primary) hypertension; E78.5 Hyperlipidemia, unspecified; E55.9 Vitamin D deficiency, unspecified
CPT/HCPCS: 36415; 80053; 80061; 82306; 84153; 85025

== ENCOUNTER 2025-07-19 14:02 | Outpatient (REF) | payer OTHER, SELFPAY ==
--- OUTSIDE RECORDS SUMMARY | 2024-12-05 06:45 | XMS_ITS ---
Author Organization Brandon Cabral III, MD Address [address] [place] [place] [address] Care Team Providers Care Wagon Winder Name Role Phone Dr. Brandon Cabral III Primary Care Provider [phone] Allergies Allergen (clinical drug ingredient) Drug/Non Drug Allergy documented on EMR Reaction Allergy Type Onset Date Status Bee Sting Unknown Allergy Active REASON FOR VISIT Hemorrhoid, Hypertension, Benign prostatic hypertrophy, Allergies, Hearing loss Medications Medication SIG (Take, Route, Frequency, Duration) Notes Start Date End Date Status Vitamin D3 10 MCG (400 UNIT) 1 tablet Or ally Once a day Active EPINEPHrine 0.15 MG/0.3ML as directed In jection if stung by by bee 03/28/2024 Active Hydrocortisone 2.5 % 1 application Exter tristen three times a day 11/03/2024 Active Tamsulosin HCl 0.4 MG 1 capsule Orally O nce a day 12/18/2023 Active Zinc + Vitamin C 20-120 MG 1 lozenge as needed Mouth/Throat Six times a day Active Social History Tobacco Use: Social History Observation Description Date Details (start date - stop date) Former Smoker NA - NA Sex Assigned At : Social History Observation Description Sex Assigned At Male Tobacco Use/Smoking Question Answer Notes Patient is a former smoker How long has it been since you last smoked? > 10 years Additional Findings: Tobacco Non-User Ex-cigaret te smoker Encounters Encounter Location Date Provider Diagnosis Brandon Cabral III, MD [address] [place] [address] [address] [place], [place] [address] 12/05/2024 Brandon Cabral Hypertension I10 ; Former smoker Z87.891 ; Sensorineural hearing loss (SNHL) of both ears H90.3 ; Environmental allergies Z91.09 ; Constipation, unspecified constipation type K59.00 and Mass of anus K62.89 Assessments Encounter Date Diagnosis (ICD Code) Assessment Notes Treat ment Notes Treatment Clinical Notes 12/05/2024 Hypertension (ICD-10 - I10) His blood pressure has been normal and no change in his regimen was needed.He will be in the office in 72 hours and have his blood pressure checked again. 12/05/2024 Former smoker (ICD-10 - Z87.891) He is highly motivated not to smoke. We discussed a plan for prevention of relapse in times of stress and illness. 12/05/2024 Sensorineural hearing loss (SNHL) of both ears (ICD-10 - H90.3) He is wearing his hearing aids and is pleased with their affect. 12/05/2024 Environmental allergies (ICD-10 - Z91.09) He will have a trial of an antihistamine. He will return in one week. If there is no improvement. 12/05/2024 Constipation, unspecified constipation type (ICD-10 - K59.00) History constipation has resolved with use of laxatives and fiber. 12/05/2024 Mass of anus (ICD-10 - K62.89) The anal lesion has not change it's appearance despite aggressive treatment with steroids.I have referred him back to surgery for second opinion. Plan Of Treatment Medication Medication Name Sig Start Date Stop Date Notes Vitamin D3 10 MCG (400 UNIT) 1 tablet Orally Once a day EPINEPHrine 0.15 MG/0.3ML as directed In jection if stung by by bee 03/28/2024 Hydrocortisone 2.5 % 1 application Exter tristen three times a day 11/03/2024 Tamsulosin HCl 0.4 MG 1 capsule Orally Once a day 12/18/19 24 Zinc + Vitamin C 20-120 MG 1 lozenge as needed Mouth/Throat Six times a day Next Appt Details Follow Up: As Scheduled, Nadya son: OV Provider Name:Brandon Cabral , 09/14/2025 11:00:00 AM, [address] [place] [address] [address], [place], [address], Provider Name:Brandon Cabral , 05/14/2026 03:00:00 PM, [address] [place] [address] [place], [address], Progress Notes * Nicholas OVERTON WDOB: (64 yo M)Acc No.[id number]:12/05/2024 Patient: Nicholas GARZA Provider: Kashmir Cabral MD :1960 A ge:64 Y S ex:Male Date:12/05/2024 [facility] Subjective: * Chief Complaints: * H emorrhoidHypertensionBenign prostatic hypertrophyAllergiesHearing loss * HPI: * : He returns to the office for further treatment of the large hemorrhoid that has been bleeding and causing itching. Upon examination today despite the use of steroids conscientiously applied the round 1-2 cm mass on the ring is no smaller. I have referred him back to surgery for another opinion as to whether this is a hemorrhoid. He called the office today with many questions. His main concern was whether he will be forced to have a procedure to which he did not agree. I reassured him that he was in control of what was done and then I was asking the surgeon for an opinion as to the nature of this lesion. Telehealth L ocation of provider rendering services: { ...} [address] [facility] [address] L ocation of patient: elaine ddress listed in demographics for today's visit P atient identification confirmed using: TACO Luque ame T elehealth method: T elephone only. Patient not visible to care provider. C onsent: P atient verbally consented to treatment, Patient verbally consented to billing insurance company, Patient informed of any privacy concerns related to method of visit T otal time spent with patient (mins) 1 5 * ROS: G eneral/Constitutional: pain A nal discomfort. C hills d enies. F atigue a dmits. F ever d enies. E NT: Decreased hearing i n both ears. R espiratory: Cough d enies. C ardiovascular: Chest pain with exertion d enies. D yspnea on exertion?denies. S hortness of breath d enies. G astrointestinal: Constipation o ccasional. D ecreased appetite d enies. D iarrhea d enies. H eartburn d enies. N ausea d enies. R ectal bleeding d escribed as maroon blood. V omiting d enies. H ematology: bruising d enies. p etechiae d enies. S wollen glands n one have been noted. G enitourinary: Frequent urination o nce a night. M usculoskeletal: Muscle aches d enies. P ainful joints d enies. S ciatica d enies. W eakness d enies. S kin: Itching d enies. R jazzy d enies. S kin lesion(s)?denies. N eurologic: Difficulty speaking d enies. D izziness d enies.?Headache d enies. L ow back pain d enies. P sychiatric: Depressed mood d enies. * Medical History: * Surgical History: l eft femur fracture 1980tonsillectomy childcolonoscopy 05/2013colonoscopy, Dr. Cruz, [facility], 3 tubular adenomas 05/2020No history * Hospitalization/Major Diagno stic Procedure: N o history * Family History: F ather: 56 yrs, car accident 1984. M other: 62 yrs, car accident 1984.? He is an only child, and has no children. He is not aware of any family history of mental illness or addiction or substance abuse. * Social History: T obacco Use: T obacco Use/Smoking P atient is a f ormer smoker H ow long has it been since you last smoked??> 10 years A dditional Findings: Tobacco Non-User E x-cigarette smoker H e is single with no children. 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 He was born in [place], [place]. * Medications: T akingTamsulosin HCl 0.4 MG Capsule 1 capsule Orally Once a day Zinc + Vitamin C 20-120 MG Lozenge 1 lozenge as needed Mouth/Throat Six times a day Vitamin D3 10 MCG (400 UNIT) Tablet 1 tablet Orally Once a day EPINEPHrine 0.15 MG/0.3ML Solution Auto-injector as directed Injection if stung by by bee Hydrocortisone 2.5 % Cream 1 application Externally three times a day Taking Tamsulosin HCl 0.4 MG Capsule 1 capsule Orally Once a day Taking Zinc + Vitamin C 20-120 MG Lozenge 1 lozenge as needed Mouth/Throat Six times a day Taking Vitamin D3 10 MCG (400 UNIT) Tablet 1 tablet Orally Once a day Taking EPINEPHrine 0.15 MG/0.3ML Solution Auto-injector as directed Injection if stung by by bee Taking Hydrocortisone 2.5 % Cream 1 application Externally three times a day * Allergies: B ee Sting Objective: * Vitals: Assessment: * Assessment: 1. H ypertension - I10 (Primary) N otes :His blood pressure has been normal and no change in his regimen was needed.He will be in the office in 72 hours and have his blood pressure checked again. 2 . F ormer smoker - Z87.891 N otes :He is highly motivated not to smoke. We discussed a plan for prevention of relapse in times of stress and illness. 3 . S ensorineural hearing loss (SNHL) of both ears - H90.3 N otes :He is wearing his hearing aids and is pleased with their affect. 4 . E nvironmental allergies - Z91.09 N otes :He will have a trial of an antihistamine. He will return in one week. If there is no improvement. 5 . C onstipation, unspecified constipation type - K59.00 N otes :History constipation has resolved with use of laxatives and fiber. 6 . M ass of anus - K62.89 N otes :The anal lesion has not change it's appearance despite aggressive treatment with steroids.I have referred him back to surgery for second opinion. Plan: * Treatment: * Procedure Codes: * Preventive Medicine: Counseling: S moking/Tobacco Use Patient counseled on the dangers of tobacco use and urged to quit. 0 12/05/2024 * Follow Up: A s Scheduled (Reason: OV) * Images: * Sign off status: Completed true * Provider: Kashmir Cabral MD Date: 0 12/05/2024 Generated for Surendrai mary anne/Frances/eTransmalyssa on: 1 09/19/2024 04:52 PM EST History and Physical Notes * HPI (History of Present Illness) Category Sub-Category Detail Notes Telehealth Location of [facility] rendering services:: {...} [address] [place], [place] [id number] Location of patient:: address listed in demographics for today's visit Patient identification confirmed using:: Name, Telehealth method:: Telephone only. Dian ent not visible to care provider. Consent:: Patient verbally c onsented to treatment, Patient verbally consented to billing insurance company, Patient informed of any privacy concerns related to method of visit Total time spent with patient (mins): 15
--- OUTSIDE RECORDS SUMMARY | 2025-03-09 07:00 | XMS_ITS ---
Author Organization Brandon Cabral III, MD Address [address] [place] [address] [place] [address] Care Team Providers Care Commercial Loan Officer Name Role Phone Dr. Brandon Cabral III Primary Care Provider REASON FOR VISIT Follow up Social History Sex Assigned At : Social History Observation Description Sex Assigned At Male Encounters Encounter Location Date Provider Diagnosis Brandon Cabral III, MD [address] [place] [address] [place] [address] 03/09/2025 Brandon Cabral Plan Of Treatment Next Appt Details Provider Name:Brandon Cabral , 09/14/2025 11:00:00 AM, [address] [place] [address] [place], [address], Provider Name:Brandon Cabral , 05/14/2026 03:00:00 PM, [address] [place] [address] [place], [address], Progress Notes * Nicholas OVERTON WDOB: 1 (65 yo M)Acc No.[id number]:03/09/2025 Progress Notes Patient: Nicholas GARZA Provider: Kashmir Cabral MD :1960 A ge:64 Y S ex:Male Date:03/09/2025 Address: [address] [place], [id number] Subjective: * Chief Complaints: * 1 . Follow up. * Medical History: Objective: * Vitals: Assessment: Plan: * Treatment: * Images: * The named appointment provid er may or may not be the originator of this progress note, and it is not deemed complete until electronically signed by the appointment provider. Sign off status: Pending * Provider: Kashmir Cabral MD Date: 0 03/09/2025 Generated for Brandi north/Frances/Nimoitting on: 09/19/2024 04:53 PM EST
--- OUTSIDE RECORDS SUMMARY | 2025-03-20 04:36 | XMS_ITS ---
Author Organization Brandon Cabral III, MD Address [address] [place] [address] [place] [address] Care Team Providers Care Screener Operator Name Role Phone Dr. Brandon Cabral III Primary Care Provider REASON FOR VISIT Refills Medications Medication SIG (Take, Route, Frequency, Duration) Notes Start Date End Date Status EPINEPHrine 0.15 MG/0.3ML as directed In jection if stung by by bee for 30 days 03/28/2024 Active Social History Sex Assigned At : Social History Observation Description Sex Assigned At Male Encounters Encounter Location Date Provider Diagnosis Brandon Cabral III, MD [address] [place] [address] [place] [address] 03/20/2025 Brandon Cabral Hypertension I10 Assessments Encounter Date Diagnosis (ICD Code) Assessment Notes Treat ment Notes Treatment Clinical Notes 03/20/2025 Hypertension (ICD-10 - I10) His blood pressure has been normal and no change in his regimen was needed.He will be in the office in 72 hours and have his blood pressure checked again. Plan Of Treatment Medication Medication Name Sig Start Date Stop Date Notes EPINEPHrine 0.15 MG/0.3ML as directed In jection if stung by by bee for 30 days 03/28/2024 Next Appt Details Provider Name:Brandon Cabral , 09/14/2025 11:00:00 AM, [address] [facility] [address], [place], [address], Provider Name:Brandon Cabral , 05/14/2026 03:00:00 PM, [address] [place] [address] [address], [place], [address], Progress Notes * Nicholas OVERTON WDOB: (65 yo M)Acc No.[id number]:03/20/2025 Patient: Nicholas GARZA W :1960 A ge:65 Y S ex:Male Address: [place] [address] * Refills Refill EPINEPHrine Solution Auto-injector, 0.15 MG/0.3ML, Injection, 1, as directed, if stung by by bee, 30 days, Refills=11 * true * Date: Generated for Brandi north/Frances/Andrewsmitting on: 09/19/2024 04:52 PM EST
--- OUTSIDE RECORDS SUMMARY | 2025-03-20 04:37 | XMS_ITS ---
Author Organization Brandon Cabral III, MD Address [address] [place] [address] [place] [address] Care Team Providers Care Kitchen Food Server Name Role Phone Dr. Brandon Cabral III Primary Care Provider REASON FOR VISIT Needs lab order form for next appt Social History Sex Assigned At : Social History Observation Description Sex Assigned At Male Encounters Encounter Location Date Provider Diagnosis Brandon Cabral III, MD [address] [place] [address] [place] [address] 03/20/2025 Brandon Cabral Hypertension I10 ; Benign prostatic hyperplasia with lower urinary tract symptoms N40.1 ; Vitamin D deficiency E55.9 ; Tubular adenoma D36.9 and Hyperlipidemia, unspecified hyperlipidemia type E78.5 Assessments Encounter Date Diagnosis (ICD Code) Assessment Notes Treat ment Notes Treatment Clinical Notes 03/20/2025 Hypertension (ICD-10 - I10) 03/20/2025 Benign prostatic hyperplasia with lower urinary tract symptoms (ICD-10 - N40.1) 03/20/2025 Vitamin D deficiency (ICD-10 - E55.9) 03/20/2025 Tubular adenoma (ICD-10 - D36.9) 03/20/2025 Hyperlipidemia, unspecified hyperlipidemia type (ICD-10 - E78.5) His lipids are stable. No change in his regimen was made. We had a discussion about reduce the amount of animal fat and his diet. Plan Of Treatment Next Appt Details Provider Name:Brandon Cabral , 09/14/2025 11:00:00 AM, [address] [place] [address] [address], [place], [address], Provider Name:Brandon Cabral , 05/14/2026 03:00:00 PM, [address] [place] [address] [address], [place], [address], Progress Notes * Nicholas OVERTON WDOB: (65 yo M)Acc No.[id number]:03/20/2025 Patient: Nicholas GARZA :1960 A ge:65 Y S ex:Male Address:[address] [place] [address] Subjective: * Chief Complaints: * N eeds lab order form for next appt * Medical History: * Surgical History: * Hospitalization/Major Diagno stic Procedure: * Medications: Objective: * Vitals: * Physical Examination: Assessment: * Assessment: 1. H ypertension - I10 2 . B enign prostatic hyperplasia with lower urinary tract symptoms - N40.1 3 . V itamin D deficiency - E55.9 4 .?Tubular adenoma - D36.9 5 . H yperlipidemia, unspecified hyperlipidemia type - E78.5 N otes :His lipids are stable. No change in his regimen was made. We had a discussion about reduce the amount of animal fat and his diet. Plan: * Treatment: 2. B enign prostatic hyperplasia with lower urinary tract symptoms L AB: PROFILE, FASTING (COMPREHENSIVE METABOLIC) L AB: PSA, TOTAL L AB: CBC w DIFF L AB: Lipid Panel L AB: Vitamin D 25-OH Total 3. V itamin D deficiency L AB: PROFILE, FASTING (COMPREHENSIVE METABOLIC) L AB: PSA, TOTAL L AB: CBC w DIFF L AB: Lipid Panel L AB: Vitamin D 25-OH Total 4. H yperlipidemia, unspecified hyperlipidemia type L AB: PROFILE, FASTING (COMPREHENSIVE METABOLIC) L AB: PSA, TOTAL L AB: CBC w DIFF L AB: Lipid Panel L AB: Vitamin D 25-OH Total * Procedure Codes: * true * Date: Generated for Brandi north/Frances/Chris on: 09/19/2024 04:54 PM EST
--- OUTSIDE RECORDS SUMMARY | 2025-05-11 06:00 | XMS_ITS ---
Author Organization Brandon Cabral III, MD Address [address] [place] [address] Care Team Providers Care Pullman Car Clerk Name Role Phone Dr. Brandon Cabral III Primary Care Provider [phone] Allergies Allergen (clinical drug ingredient) Drug/Non Drug Allergy documented on EMR Reaction Allergy Type Onset Date Status No Known Drug Allergy Unknown Drug Allergy Active No Known Food Allergy Unknown Drug Allergy Active Bee Sting Unknown Allergy Active Reason For Referral Reason evaluate and treatme nt H/O tubular adenoma x 2 in 2019 Diagnosis 1 Tubular adenoma (D36 .9) Referral Organization Brandon Cabral III, MD Referring Provider First Name Brandon Referring Provider Last Name Misha Referring Provider Speciality Internal M edicine Referred Provider DALLAS MCCLENDON Referred Provider Specialty Gastroentero logy General Notes Rizwana Alfonso CMA 05/15 10:18:27 AM > ref,demo.progress note faxed today, Rizwana Alfonso CMA 05/25/2025 01:40:19 PM >called Laura ANDRADE spoke to [place] to make patient appt he is due for his 5-year colonoscopy. she stated pt needs to see Dr Mcclendon first for consult this appt was made for 10/30/2025 at 11:00am pt mailed and called with this appt information Referral Priority Routine Referral Appointment Date 10/30/2025 REASON FOR VISIT Annual Exam Medications Medication SIG (Take, Route, Frequency, Duration) Notes Start Date End Date Status EPINEPHrine 0.15 MG/0.3ML as directed In jection if stung by by bee 03/28/2024 Active Tamsulosin HCl 0.4 MG TAKE 1 CAPSULE BY MOUTH EVERY DAY FOR 30 DAYS Active Zinc + Vitamin C 20-120 MG 1 lozenge as needed Mouth/Throat Six times a day Active Vitamin D3 10 MCG (400 UNIT) 1 tablet Or ally Once a day Active Hydrocortisone 2.5 % 1 application Exter tristen three times a day 11/03/2024 Active Social History Tobacco Use: Social History Observation Description Date Details (start date - stop date) Former Smoker NA - NA Sex Assigned At : Social History Observation Description Sex Assigned At Male Tobacco Control (Standard) Question Answer Notes Tobacco use: Former smoker How long has it been since you last smoked? Grea ter than 10 years Additional Findings: Tobacco non-user Ex-cigaret te smoker AUDIT-C (Standard) Question Answer Notes Did you have a drink containing alcohol in the p ast year? No Points 0 Interpretation Negative Vital Signs Temperature 98.0 degrees Fahrenheit 05/11/20 25 Blood pressure systolic 135 mm Hg 05/11/20 Blood pressure diastolic 82 mm Hg 025 Heart Rate 72 /min 05/11/2025 Height 72 in 05/11/2025 Weight 180 lbs 05/11/2025 BMI 24.41 kg/m2 05/11/2025 Encounters Encounter Location Date Provider Diagnosis Brandon Cabral III, MD [address] [place] [address] [place] [address] 05/11/2025 Brandon Cabral Hypertension I10 ; Former smoker Z87.891 ; Tubular adenoma D36.9 ; Environmental allergies Z91.09 ; Benign prostatic hyperplasia with lower urinary tract symptoms N40.1 and Sensorineural hearing loss (SNHL) of both ears H90.3 Assessments Encounter Date Diagnosis (ICD Code) Assessment Notes Treatment Notes Treatment Clinical Notes 05/11/2025 Hypertension (ICD-10 - I10) His blood pressure has been normal and no change in his regimen was needed.He will be in the office in 72 hours and have his blood pressure checked again. 05/11/2025 Former smoker (ICD-10 - Z87.891) He is highly motivated not to smoke. We discussed a plan for prevention of relapse in times of stress and illness. 05/11/2025 Tubular adenoma (ICD-10 - D36.9) Research Compliance Specialist found 3 tubular adenomas on his recent colonoscopy. He will have a colonoscopy every 5 years which will be in the near future 05/11/2025 Environmental allergies (ICD-10 - Z91.09) He will have a trial of an antihistamine. He will return in one week. If there is no improvement. 05/11/2025 Benign prostatic hyperplasia with lower urinary tract symptoms (ICD-10 - N40.1) He arises from sleep once or twice a night to urinate. We have discussed lifestyle modification as a way to control nocturia. Without medication. 05/11/2025 Sensorineural hearing loss (SNHL) of both ears (ICD-10 - H90.3) He is wearing his hearing aids and is pleased with their affect. Plan Of Treatment Medication Medication Name Sig Start Date Stop Date Notes EPINEPHrine 0.15 MG/0.3ML as directed In jection if stung by by bee 03/28/2024 Tamsulosin HCl 0.4 MG TAKE 1 CAPSULE BY MOUTH EVERY DAY FOR 30 DAYS Zinc + Vitamin C 20-120 MG 1 lozenge as needed Mouth/Throat Six times a day Vitamin D3 10 MCG (400 UNIT) 1 tablet Orally Once a day Hydrocortisone 2.5 % 1 application Exter tristen three times a day 11/03/2024 Referrals Referral Date Details 05/11/2025 05/11/2025, evaluate and treatment H/O tubular adenoma x 2 in 2019, DALLAS MCCLENDON Next Appt Details Follow Up: 4 Months, Reason: ov no tests Provider Name:Brandon Cabral , 09/14/2025 11:00:00 AM, [address] [place] [address] [address], [place], [address], Provider Name:Brandon Cabral , 05/14/2026 03:00:00 PM, [address] [place] [address] [place], [address], Progress Notes * Nicholas OVERTON WDOB: 1 (65 yo M)Acc No.[id number]:05/11/2025 Progress Notes Patient: Nicholas GARZA Provider: Kashmir Cabral MD :1960 A ge:65 Y S ex:Male Date:05/11/2025 Address:[facility], [id number] Subjective: * Chief Complaints: * A nnual Exam * HPI: D epression Screening: He says that he feels healthy and well. He is due for a screening colonoscopy and this was ordered. It has been 5 years since his last study which showed tubular adenomas. He has no GI symptoms. He denies any chest pain or shortness of breath. His vital signs were stable. He is compliant with all of his treatments.He recently underwent a hemorrhoidectomy at [facility] with Dr. Kemp. He now has no anal symptoms. PHQ-9 L ittle interest or pleasure in doing things?Not at all F eeling down, depressed, or hopeless N ot at all T rouble falling or staying asleep, or sleeping too much N ot at all F eeling tired or having little energy N ot at all P oor appetite or overeating N ot at all F eeling bad about yourself or that you are a failure, or have let yourself or your family down N ot at all T rouble concentrating on things, such as reading the newspaper or watching television N ot at all M oving or speaking so slowly that other people could have noticed; or the opposite, being so fidgety or restless that you have been moving around a lot more than usual N ot at all T houghts that you would be better off or of hurting yourself in some way N ot at all T otal Score 0 C OVID-19 Screening: Questions H ave you had any new onset fever, chills, cough, congestion, sore throat, shortness of breath, muscle aches? N o S ROLF Questions: SDOH Questions I n the past year have you been worried about losing your housing? N o I n the past year have you or any family members you live with been unable to get any of the following when it was really needed? Check all that apply: N one * ROS: G eneral/Constitutional: pain o nly normal aches and pains. C hills d enies.?Fatigue a dmits. F ever d enies. E NT: Decreased hearing d enies. R espiratory: Cough d enies. C ardiovascular: Chest pain with exertion d enies. D yspnea on exertion?denies. S hortness of breath d enies. G astrointestinal: Constipation o ccasional. D ecreased appetite d enies. D iarrhea d enies. H eartburn d enies. N ausea d enies. R ectal bleeding d enies. V omiting d enies. H ematology: bruising [...] eft femur fracture 1980tonsillectomy childcolonoscopy 05/2013colonoscopy, Dr. Mcclendon, [facility], 3 tubular adenomas 05/2020Hemorrhoid removed 02/03/2025 * Hospitalization/Major Diagno stic Procedure: N o history * Family History: F ather: 56 yrs, car accident 1984. M other: 62 yrs, car accident 1984.? He is an only child, and has no children. He is not aware of any family history of mental illness or addiction or substance abuse. * Social History: T obacco Use: T obacco Control (Standard) T obacco use: F ormer smoker H ow long has it been since you last smoked??Greater than 10 years A dditional Findings: Tobacco non-user E x-cigarette smoker D rugs/Alcohol: D rugs H ave you used drugs other than those for medical reasons in the past 12 months? N o D rug/Alcohol: A LANNY-C (Standard) D id you have a drink containing alcohol in the past year? N o P oints 0 I nterpretation N egative H ron is single with no children. 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 He was born in [place], [place]. * Medications: T akingZinc + Vitamin C 20-120 MG Lozenge 1 lozenge as needed Mouth/Throat Six times a day Vitamin D3 10 MCG (400 UNIT) Tablet 1 tablet Orally Once a day Hydrocortisone 2.5 % Cream 1 application Externally three times a day Tamsulosin HCl 0.4 MG Capsule TAKE 1 CAPSULE BY MOUTH EVERY DAY FOR 30 DAYS EPINEPHrine 0.15 MG/0.3ML Solution Auto-injector as directed Injection if stung by by bee Medication List reviewed and reconciled with the patientTaking Zinc + Vitamin C 20-120 MG Lozenge 1 lozenge as needed Mouth/Throat Six times a day Taking Vitamin D3 10 MCG (400 UNIT) Tablet 1 tablet Orally Once a day Taking Hydrocortisone 2.5 % Cream 1 application Externally three times a day Taking Tamsulosin HCl 0.4 MG Capsule TAKE 1 CAPSULE BY MOUTH EVERY DAY FOR 30 DAYS Taking EPINEPHrine 0.15 MG/0.3ML Solution Auto-injector as directed Injection if stung by by bee Medication List reviewed and reconciled with the patient * Allergies: B ee StingNo Known Drug AllergyNo Known Food Allergyno[Allergies Verified] Objective: * Vitals: H t: 72, Wt: 180, BMI:24.41, BP: 135/82, HR: 72, Temp: 98.0, Wt-k.65. * P ast Orders: Lab:Complete Blood Count Aut o Diff * Collection Date 04/22/2025 04/16/2024 12/19/2023 Collection Time 08:07 AM 07:38 AM 07:09 AM Order Date 04/22/2025 04/16/2024 12/19/2023 White Blood Count 7.3 (Ref Range: 4.8-10.8 X10*3/uL) 7.3 (Ref Range: 4.8-10.8 X10*3/uL) 7.4 (Ref Range: 4.8-10.8 X10*3/uL) Red Blood Count 4.68 (Ref Range: 4.60-5.80 X10*6/uL) 4.77 (Ref Range: 4.60-5.80 X10*6/uL) 4.77 (Ref Range: 4.60-5.80 X10*6/uL) Hemoglobin 14.0 (Ref Range: 14.0-18.0 g/dl) 14.6 (Ref Range: 14.0-18.0 g/dl) 14.4 (Ref Range: 14.0-18.0 g/dl) Hematocrit 42.3 (Ref Range: 42.0-52.0 %) 45.0 (Ref Range: 42.0-52.0 %) 44.8 (Ref Range: 42.0-52.0 %) Mean Corpuscular Volume 90.4 (Ref Range: 80.0-98.0 fL) 94.3 (Ref Range: 80.0-98.0 fL) 93.9 (Ref Range: 80.0-98.0 fL) Mean Corpuscular Hemoglobin 29.9 (Ref Range: 27.0-33.0 pg) 30.6 (Ref Range: 27.0-33.0 pg) 30.2 (Ref Range: 27.0-33.0 pg) Mean Corpuscular HGB Conc 33.1 (Ref Range: 31.0-36.0 g/dl) 32.4 (Ref Range: 31.0-36.0 g/dl) 32.1 (Ref Range: 31.0-36.0 g/dl) Red Cell Distribution Width 13.1 (Ref Range: 11.0-16.0 %) 12.7 (Ref Range: 11.0-16.0 %) 12.6 (Ref Range: 11.0-16.0 %) Platelet Count 248 (Ref Range: 160-400 X10*3/uL) 240 (Ref Range: 160-400 X10*3/uL) 231 (Ref Range: 160-400 X10*3/uL) Mean Platelet Volume 9.9 (Ref Range: 9.4-12.4 fL) 9.8 (Ref Range: 9.4-12.4 fL) 10.2 (Ref Range: 9.4-12.4 fL) Neutrophils Percent Auto 54.9 (Ref Range: 45-73 %) 63.6 (Ref Range: 45-73 %) 60.0 (Ref Range: 45-73 %) Imm Gran Pct Auto 0.3 (Ref Range: 0.0-0.4 %) 0.3 (Ref Range: 0.0-0.4 %) 0.4 (Ref Range: 0.0-0.4 %) Lymphocytes Percent Auto 32.7 (Ref Range: 20-40 %) 25.4 (Ref Range: 20-40 %) 28.4 (Ref Range: 20-40 %) Monocytes Percent Auto 8.8 (Ref Range: 2-11 %) 7.9 (Ref Range: 2-11 %) 8.3 (Ref Range: 2-11 %) Eosinophils Percent Auto 2.6 (Ref Range: 0-4 %) 2.2 (Ref Range: 0-4 %) 2.2 (Ref Range: 0-4 %) Basophils Percent Auto 0.7 (Ref Range: 0-2 %) 0.6 (Ref Range: 0-2 %) 0.7 (Ref Range: 0-2 %) NRBC Pct Auto 0.0 (Ref Range: 0.0-0.2 /100WBC) 0.0 (Ref Range: 0.0-0.2 /100WBC) 0.0 (Ref Range: 0.0-0.2 /100WBC) Neutrophils Absolute Auto 4.0 (Ref Range: 2.0-8.3 x10*3/uL) 4.6 (Ref Range: 2.0-8.3 x10*3/uL) 4.4 (Ref Range: 2.0-8.3 x10*3/uL) Imm Gran Abs Auto 0.02 (Ref Range: 0.00-0.03 X10*3/uL) 0.02 (Ref Range: 0.00-0.03 X10*3/uL) 0.03 (Ref Range: 0.00-0.03 X10*3/uL) Lymphocytes Absolute Auto 2.4 (Ref Range: 1.2-4.9 X10*3/uL) 1.8 (Ref Range: 1.2-4.9 X10*3/uL) 2.1 (Ref Range: 1.2-4.9 X10*3/uL) Monocytes Absolute Auto 0.6 (Ref Range: 0.1-1.2 X10*3/uL) 0.6 (Ref Range: 0.1-1.2 X10*3/uL) 0.6 (Ref Range: 0.1-1.2 X10*3/uL) Eosinophils Absolute Auto 0.2 (Ref Range: 0.0-0.4 X10*3/uL) 0.2 (Ref Range: 0.0-0.4 X10*3/uL) 0.2 (Ref Range: 0.0-0.4 X10*3/uL) Basophils Absolute Auto 0.1 (Ref Range: 0.0-0.2 X10*3/uL) 0.0 (Ref Range: 0.0-0.2 X10*3/uL) 0.1 (Ref Range: 0.0-0.2 X10*3/uL) NRBC Abs Auto 0.000 (Ref Range: 0.0-0.012 X10*3/uL) 0.000 (Ref Range: 0.0-0.012 X10*3/uL) 0.000 (Ref Range: 0.0-0.012 X10*3/uL) * Lab:Monty [facility] * Collection Date 04/22/2025 08/15/2023 04/11/2023 Collection Time 08:07 AM 08:14 AM 07:24 AM Order Date 04/22/2025 08/15/2023 04/11/2023 Sodium 143 (Ref Range: 135-145 mmol/L) 143 (Ref Range: 135-145 mmol/L) 143 (Ref Range: 135-145 mmol/L) Bilirubin Total 0.9 (Ref Range: 0.0-1.0 mg/dL) 0.6 (Ref Range: 0.0-1.0 mg/dL) 0.7 (Ref Range: 0.0-1.0 mg/dL) Aspartate Amino Transferase 30 (Ref Range: 5-37 U/L) 17 (Ref Range: 5-37 U/L) 17 (Ref Range: 5-37 U/L) Alanine Aminotransferase 25 (Ref Range: 0-40 U/L) 14 (Ref Range: 0-40 U/L) 15 (Ref Range: 0-40 U/L) Total Protein 7.0 (Ref Range: 6.5-8.0 g/dL) 6.6 (Ref Range: 6.5-8.0 g/dL) 6.6 (Ref Range: 6.5-8.0 g/dL) Albumin Level 4.4 (Ref Range: 3.5-5.0 g/dL) 4.1 (Ref Range: 3.5-5.0 g/dL) 4.0 (Ref Range: 3.5-5.0 g/dL) Alkaline Phosphatase 74 (Ref Range: 39-117 U/L) 66 (Ref Range: 39-117 U/L) 64 (Ref Range: 39-117 U/L) Potassium 4.1 (Ref Range: 3.3-5.1 mmol/L) 3.8 (Ref Range: 3.3-5.1 mmol/L) 4.0 (Ref Range: 3.3-5.1 mmol/L) Chloride 105 (Ref Range: 96-108 mmol/L) 107 (Ref Range: 96-108 mmol/L) 104 (Ref Range: 96-108 mmol/L) Carbon Dioxide 29 (Ref Range: 22-29 mmol/L) 30 H (Ref Range: 22-29 mmol/L) 31 H (Ref Range: 22-29 mmol/L) Anion Gap 13 (Ref Range: 12-20) 10 L (Ref Range: 12-20) 12 (Ref Range: 12-20) Blood Urea Nitrogen 22 H (Ref Range: 9-16 mg/dL) 18 H (Ref Range: 9-16 mg/dL) 19 H (Ref Range: 9-16 mg/dL) Creatinine 1.01 (Ref Range: 0.5-1.4 mg/dL) 0.85 (Ref Range: 0.5-1.4 mg/dL) 0.89 (Ref Range: 0.5-1.4 mg/dL) Estimated Glomerular Filt Rate > 60 > 60 > 60 Glucose Fasting 103 H (Ref Range: 60-99 mg/dL) 101 H (Ref Range: 60-99 mg/dL) 109 H (Ref Range: 60-99 mg/dL) Calcium 9.2 (Ref Range: 8.4-10.2 mg/dL) 9.1 (Ref Range: 8.4-10.2 mg/dL) 9.2 (Ref Range: 8.4-10.2 mg/dL) * Lab:Lipid Panel * Collection Date 04/22/2025 04/16/2024 12/19/2023 Collection Time 08:07 AM 07:38 AM 07:09 AM Order Date 04/22/2025 04/16/2024 12/19/2023 Triglycerides 79 (Ref Range: <150 mg/dL) 57 (Ref Range: <150 mg/dL) 73 (Ref Range: <150 mg/dL) Cholesterol 218 H (Ref Range: <200 mg/dL) 211 H (Ref Range: <200 mg/dL) 199 (Ref Range: <200 mg/dL) LDL Cholesterol Calculated 149 H (Ref Range: <100 mg/dL) 141 H (Ref Range: <100 mg/dL) 135 H (Ref Range: <100 mg/dL) HDL Cholesterol 54 (Ref Range: >40 mg/dL) 59 (Ref Range: >40 mg/dL) 50 (Ref Range: >40 mg/dL) ???Lab:PSA,Total (Free>4and<10) (Order Date - 04/22/2025) (Collection Date & Time - 04/22/2025 08:07 AM)?ValueReference Range?PSA,Total (Free>4and<10)3.840.00-4.00 - ng/mL ???Lab:Vitamin D 25-OH Total (Order Date - 04/22/2025) (Collection Date & Time - 04/22/2025 08:07 AM)?ValueReference Range?Vitamin D 25-OH Total 114.2>30 - ng/mL * Examination: G eneral Examination: GENERAL APPEARANCE: p leasant, well nourished, well developed, in no acute distress, calm and relaxed: man. HEAD: a traumatic, normocephalic. EYES: e glenroy, perrla, anicteric, conjugate. EARS: : Normal anatomy with bilateral hearing loss. NOSE: s eptum intact. ORAL CAVITY: n ormal, unremarkable. NECK/THYROID: n o jugular venous distention, no carotid bruit, thyroid normal. LYMPH NODES: n o enlarged lymph nodes,spleen normal. SKIN: n o suspicious lesions, anicteric. HEART: n o clicks, gallops, murmurs, or rubs, regular rhythm, S1, S2 normal, no s3, or vascular bruits. LUNGS: c lear to auscultation . BREASTS: no masses palpable bilaterally. ABDOMEN: b owel sounds normal, no ascites, no organomegaly, no mass. RECTAL EXAM: n ot examined, Upcoming colonoscopy. MUSCULOSKELETAL: e xtremities unremarkable, no clubbing, cyanosis or edema. PERIPHERAL PULSES: n ormal. NEUROLOGIC: a lert and oriented, cranial nerves 2-12 grossly intact, deep tendon reflexes 2+ symmetrical, motor strength normal upper and lower extremities, sensory exam intact. PSYCH: a lert, oriented. Assessment: * Assessment: 1. H ypertension - [...] times of stress and illness. 3 . T ubular adenoma - D36.9 N otes :Research Compliance Specialist found 3 tubular adenomas on his recent colonoscopy. He will have a colonoscopy every 5 years which will be in the near future 4 . E nvironmental allergies - Z91.09 N otes :He will have a trial of an antihistamine. He will return in one week. If there is no improvement. 5 . B enign prostatic hyperplasia with lower urinary tract symptoms - N40.1? Notes :He arises from sleep once or twice a night to urinate. We have discussed lifestyle modification as a way to control nocturia. Without medication. 6 . S ensorineural hearing loss (SNHL) of both ears - H90.3 N otes :He is wearing his hearing aids and is pleased with their affect. Plan: * Treatment: 2. T ubular adenoma Referral To:DALLAS MCCLENDON Gastroenterology Reason:evaluate and treatment H/O tubular adenoma x 2 in 2019 * Procedure Codes: * Preventive Medicine: Counseling: S moking/Tobacco Use Patient counseled on the dangers of tobacco use and urged to quit. 0 05/11/2025 * Follow Up: 4 Months (Reason: ov no tests) * Images: * Sign off status: Completed true * Provider: Kashmir Cabral MD Date: 0 05/11/2025 Generated for Printi ng/Fakyleg/eTransmitting on: 1 09/19/2024 04:55 PM EST History and Physical Notes * HPI (History of Present Illness) Category Sub-Category Detail Notes Depression Screening PHQ-9 Little inte rest or pleasure in doing things: Not at all Feeling down, depressed, or hopeless: No t at all Trouble falling or staying asleep, or sl eeping too much: Not at all Feeling tired or having little energy: N ot at all Poor appetite or overeating: Not at all Feeling bad about yourself o r that you are a failure, or have let yourself or your family down: Not at all Trouble concentrating on thi ngs, such as reading the newspaper or watching television: Not at all Moving or speaking so slowly that other people could have noticed; or the opposite, being so fidgety or restless that you have been moving around a lot more than usual: Not at all Thoughts that you would be b audelia off or of hurting yourself in some way: Not at all Total Score: 0 COVID-19 Screening Questions Have you had any new onset fever, chills, cough, congestion, sore throat, shortness of breath, muscle aches?: No SDOH Questions SDOH Questions In the past year have you been worried about losing your housing?: No In the past year have you or any family members you live with been unable to get any of the following when it was really needed? Check all that apply:: None Examination Category Sub-Category Detail Notes General Examination GENERAL APPEARANCE: pleasant , well nourished, well developed, in no acute distress, calm and relaxed: man HEAD: atraumatic, normocep halic EYES: eomi, perrla, anicte kasia, conjugate EARS: : Normal anatomy wit h bilateral hearing loss NOSE: septum intact NECK/THYROID: no jugular [...] enlarged lymph no ron,spleen normal RECTAL EXAM: not examined, Upcomi ng colonoscopy PSYCH: alert, oriented ORAL CAVITY: normal, unremarkable Consultation Request Notes Referral Date Referring Provider Referred Provider Not es 05/11/2025 Brandon Cabral TUYYAB evaluate and treatment H/O tubular adenoma x 2 in 2019
--- OUTSIDE RECORDS SUMMARY | 2025-05-16 04:04 | XMS_ITS ---
Author Organization Brandon Cabral III, MD Address [address] [place] [address] [place] [address] Care Team Providers Care Clam Grader Name Role Phone Dr. Brandon Cabral III Primary Care Provider REASON FOR VISIT Rx request Medications Medication SIG (Take, Route, Frequency, Duration) Notes Start Date End Date Status Tussin DM 10-100 MG/5ML 10 mL as needed Orally every 4 hrs for 7 days 05/16/2025 05/30/2025 Active Social History Sex Assigned At : Social History Observation Description Sex Assigned At Male Encounters Encounter Location Date Provider Diagnosis Brandon Cabral III, MD [address] [place] [address] [address] [facility] [place] [address] 05/16/2025 Brandon Cabral Plan Of Treatment Medication Medication Name Sig Start Date Stop Date Notes Tussin DM 10-100 MG/5ML 10 mL as needed Orally every 4 hrs for 7 days 05/16/2025 05/30/2025 Next Appt Details Provider Name:Brandon Cabral , 09/14/2025 11:00:00 AM, [address] [place] [address] [place], [address], Provider Name:Brandon Cabral , 05/14/2026 03:00:00 PM, [address] [place] [address] , [address], [place], [address], Progress Notes * Nicholas OVERTON WDOB: (65 yo M)Acc No.[id number]:05/16/2025 Patient: Nicholas GARZA :1960 A ge:65 Y S ex:Male Address: [place] [address] * Refills Refill Tussin DM Liquid, 10-100 MG/5ML, Orally, 420 ML, 10 mL as needed, every 4 hrs, 7 days, Refills=1 * true * Date: Generated for Brandi north/Frances/Nimoitting on: 09/19/2024 04:53 PM EST
--- OUTSIDE RECORDS SUMMARY | 2025-05-16 09:33 | XMS_ITS ---
Author Organization Brandon Cabral III, MD Address [address] [place] [address] [place] [address] Care Team Providers Care Tour Leader Name Role Phone Dr. Brandon Cabral III Primary Care Provider [phone] Medications Medication SIG (Take, Route, Frequency, Duration) Notes Start Date End Date Status Tussin DM 10-100 MG/5ML 10 mL as needed Orally every 4 hrs for 7 days 05/16/2025 05/30/2025 Active Azithromycin 250 MG as directed Orally 2 Tablets on the first day, one tablet the rest of the days for 5 days 05/16/2025 Active Social History Sex Assigned At : Social History Observation Description Sex Assigned At Male Encounters Encounter Location Date Provider Diagnosis Brandon Cabral III, MD [address] [place] [address] [address] [facility] [place] [address] 05/16/2025 Brandon Cabral Plan Of Treatment Medication Medication Name Sig Start Date Stop Date Notes Tussin DM 10-100 MG/5ML 10 mL as needed Orally every 4 hrs for 7 days 05/16/2025 05/30/2025 Azithromycin 250 MG as directed Orally 2 Tablets on the first day, one tablet the rest of the days for 5 days 05/16/2025 Next Appt Details Provider Name:Brandon Cabral , 09/14/2025 11:00:00 AM, [address] [place] [address] [address], [place], [address], Provider Name:Brandon Cabral , 05/14/2026 03:00:00 PM, [address] [place] [address] [address], [place], [address], Progress Notes * Nicholas OVERTON WDOB: 1 (65 yo M)Acc No.[id number]:05/16/2025 Patient: Nicholas GARZA W :1960 A ge:65 Y S ex:Male Address: [address] [address] * Refills Start Tussin DM Liquid, 10-100 MG/5ML, Orally, 420 ML, 10 mL as needed, every 4 hrs, 7 days, Refills=1 Start Azithromycin Tablet, 250 MG, Orally, 6, as directed, 2 Tablets on the first day, one tablet the rest of the days, 5 days, Refills=0 * true * Date: Generated for Brandi north/Frances/Andrewsmitting on: 09/19/2024 04:55 PM EST
--- OUTSIDE RECORDS SUMMARY | 2025-05-16 11:27 | XMS_ITS ---
Author Organization Brandon Cabral III, MD Address [address] [place] [address] [place] [address] Care Team Providers Care Staff Psychiatrist Name Role Phone Dr. Brandon Cabral III Primary Care Provider [phone] Medications Medication SIG (Take, Route, Frequency, Duration) Notes Start Date End Date Status guaiFENesin-Codeine 100-10 MG/5ML 10 mL as needed Orally every 4 hrs for 7 days 05/16/2025 06/06/2025 Active Social History Sex Assigned At : Social History Observation Description Sex Assigned At Male Encounters Encounter Location Date Provider Diagnosis Brandon Cabral III, MD [address] [place] [address] [place] [address] 05/16/2025 Brandon Cabral Plan Of Treatment Medication Medication Name Sig Start Date Stop Date Notes guaiFENesin-Codeine 100-10 MG/5ML 10 mL as needed Orally every 4 hrs for 7 days 05/16/2025 06/06/2025 Next Appt Details Provider Name:Brandon Cabral , 09/14/2025 11:00:00 AM, [address] [place] [address] [place], [address], Provider Name:Brandon Cabral , 05/14/2026 03:00:00 PM, [address] [place] [address] DR, [address], [place], [address], Progress Notes * Nicholas OVERTON WDOB: (65 yo M)Acc No.[id number]:05/16/2025 Patient: Nicholas GARZA W :1960 A ge:65 Y S ex:Male Address: [place] [address] * Refills Start guaiFENesin-Codeine Solution, 100-10 MG/5ML, Orally, 420 ML, 10 mL as needed, every 4 hrs, 7 days, Refills=2 * true * Date: Generated for Brandi north/Frances/Andrewsmitting on: 09/19/2024 04:52 PM EST
--- OUTSIDE RECORDS SUMMARY | 2025-05-22 04:31 | XMS_ITS ---
Author Organization Brandon Cabral III, MD Address [address] [place] [address] [place] [address] Care Team Providers Care Supervisor Costuming Name Role Phone Dr. Brandon Cabral III Primary Care Provider [phone] REASON FOR VISIT told patient to call Social History Sex Assigned At : Social History Observation Description Sex Assigned At Male Encounters Encounter Location Date Provider Diagnosis Brandon Cabral III, MD [address] [place] [address] [place] [address] 05/22/2025 Brandon Cabral Plan Of Treatment Next Appt Details Provider Name:Brandon Cabral , 09/14/2025 11:00:00 AM, [address] [place] [address] [place], [address], Provider Name:Brandon Cabral , 05/14/2026 03:00:00 PM, [address] [place] [address] [place], [address], Progress Notes * Nicholas OVERTON WDOB: (65 yo M)Acc No.[id number]:05/22/2025 Patient: Joshua Nicholas ARROYO :1960 A ge:65 Y S ex:Male Address: [address], [place] [address] * true * Date: Generated for Brandi north/Frances/Chris on: 09/19/2024 04:55 PM EST
--- OUTSIDE RECORDS SUMMARY | 2025-07-19 05:15 | XMS_ITS ---
Author Organization Brandon Cabral III, MD Address [address] [place] [address] Care Team Providers Care House Fellow Name Role Phone Dr. Brandon Cabral III Primary Care Provider [phone] Allergies Allergen (clinical drug ingredient) Drug/Non Drug Allergy documented on EMR Reaction Allergy Type Onset Date Status No Known Drug Allergy Unknown Drug Allergy Active No Known Food Allergy Unknown Drug Allergy Active Bee Sting Unknown Allergy Active REASON FOR VISIT Sore throat x 2 weeks on and off Medications Medication SIG (Take, Route, Frequency, Duration) [...] day 11/03/2024 Active Tamsulosin HCl 0.4 MG TAKE 1 CAPSULE BY MOUTH EVERY DAY FOR 30 DAYS Active Social History Tobacco Use: Social History Observation Description Date Details (start date - stop date) Former Smoker NA - NA Sex Assigned At : Social History Observation Description Sex Assigned At Male Tobacco Control (Standard) Question Answer Notes Tobacco use: Former smoker How long has it been since you last smoked? Remington ter than 10 years Additional Findings: Tobacco non-user Ex-cigaret te smoker Vital Signs Temperature 97.4 degrees Fahrenheit 07/19/20 25 Blood pressure systolic 130 mm Hg 07/19/20 25 Blood pressure diastolic 76 mm Hg 025 Heart Rate 71 /min 07/19/2025 Height 72 in 07/19/2025 Weight 185 lbs 07/19/2025 BMI 25.09 kg/m2 07/19/2025 Encounters Encounter Location Date Provider Diagnosis Brandon Cabral III, MD [address] [place] [address] [place] [address] 07/19/2025 Brandon Cabral Hypertension I10 and Sore throat J02.9 Assessments Encounter Date Diagnosis (ICD Code) Assessment Notes Treat ment Notes Treatment Clinical Notes 07/19/2025 Hypertension (ICD-10 - I10) His blood pressure has been normal and no change in his regimen was needed.He will be in the office in 72 hours and have his blood pressure checked again. 07/19/2025 Sore throat (ICD-10 - J02.9) Plan Of Treatment Medication Medication Name Sig [...] a day 11/03/2024 Tamsulosin HCl 0.4 MG TAKE 1 CAPSULE BY MOUTH EVERY DAY FOR 30 DAYS Pending Test Test Name Order Date Routine Culture 07/19/2025 Next Appt Details Provider Name:Brandon Cabral , 09/14/2025 11:00:00 AM, [address] [place] [address] [address], [place], [address], Provider Name:Brandon Cabral , 05/14/2026 03:00:00 PM, [address] [place] [address] [place], [address], Progress Notes * Nicholas OVERTON WDOB: 1 (65 yo M)Acc No.[id number]:07/19/2025 Progress Notes Patient: Nicholas GARZA Provider: Kashmir Cabral MD :1960 A ge:65 Y S ex:Male Date:07/19/2025 [facility] [id number] Subjective: * Chief Complaints: * 1 . Sore throat x 2 weeks on and off. * HPI: C OVID-19 Screening: mulcjhing, inhales stuff lmowing, throat sore, green snot,,, right foot second toe hammer, bunion first toe, i did c and s of throat, looked ok, atb is pd. Questions H ave you had any new onset fever, chills, cough, congestion, sore throat, shortness of breath, muscle aches? Y es Sore Throat longer than 48 hours * ROS: G eneral/Constitutional: pain o nly normal aches and pains. C hills d enies.?Fatigue a dmits. F ever d enies. E NT: Decreased hearing d enies. R espiratory: Cough d enies. C ardiovascular: Chest pain with exertion d enies. D yspnea on exertion?denies. S hortness of breath d enies. G astrointestinal: Constipation d enies. D ecreased appetite d enies.?Diarrhea d enies. H eartburn d enies. N ausea d enies. R ectal bleeding?denies. V omiting d enies. H ematology: bruising d enies. p etechiae d enies. S wollen glands n one have been noted. G enitourinary: Frequent urination d enies. M usculoskeletal: Muscle aches d enies. P ainful joints d enies. S ciatica d enies. W eakness d enies. S kin: Itching d enies. R jazzy d enies. S kin lesion(s)?denies. N eurologic: Difficulty speaking d enies. D izziness d enies.?Headache d enies. L ow back pain d enies. P sychiatric: Depressed mood d enies. * Medical History: H ematochezia due to hemorrhoids, T & A, Weight loss, Diarrhea, Former smoker, Tubular adenoma 2012, Benign prostatic hypertrophy. * Surgical History: l eft femur fracture 1979, tonsillectomy child, colonoscopy 05/2013, colonoscopy, Dr. Cruz, [facility], 3 tubular adenomas 05/2020, Hemorrhoid removed 02/03/2025. * Hospitalization/Major Diagno stic Procedure: N o history . * Family History: F ather: 56 yrs, [...] dditional Findings: Tobacco non-user E x-cigarette smoker H e is single with no children. 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 He was born in [place], [place]. * Medications: T aking EPINEPHrine 0.15 MG/0.3ML Solution Auto-injector as directed Injection if stung by by bee , Taking Tamsulosin HCl 0.4 MG Capsule TAKE 1 CAPSULE BY MOUTH EVERY DAY FOR 30 DAYS , Taking Zinc + Vitamin C 20-120 MG Lozenge 1 lozenge as needed Mouth/Throat Six times a day , Taking Vitamin D3 10 MCG (400 UNIT) Tablet 1 tablet Orally Once a day , Taking Hydrocortisone 2.5 % Cream 1 application Externally three times a day , Discontinued Azithromycin 250 MG Tablet as directed Orally 2 Tablets on the first day, one tablet the rest of the days , Medication List reviewed and reconciled with the patient * Allergies: B ee Sting, No Known Drug Allergy, No Known Food Allergy. Objective: * Vitals: H t: 72, Wt: 185, BMI:25.09, BP: 130/76, HR: 71, Temp: 97.4, Wt-k.91. * Examination: G eneral Examination: GENERAL APPEARANCE: p leasant, well nourished, well developed, in no acute distress, calm and relaxed. HEAD: a traumatic, normocephalic. EYES: e glenroy, perrla, anicteric, conjugate. EARS: n ormal. NOSE: s eptum intact. ORAL CAVITY: n [...] organomegaly, no mass. RECTAL EXAM: n ot examined. MUSCULOSKELETAL: e xtremities unremarkable, no clubbing, cyanosis or edema. PERIPHERAL PULSES: n ormal. NEUROLOGIC: a lert and oriented, cranial nerves 2-12 grossly intact, deep tendon reflexes 2+ symmetrical, motor strength normal upper and lower extremities, sensory exam intact. PSYCH: a lert, oriented. Assessment: * Assessment: 1. H ypertension - I10 N otes :His blood pressure has been normal and no change in his regimen was needed.He will be in the office in 72 hours and have his blood pressure checked again. 2 . S ore throat - J02.9 Plan: * Treatment: 2. S ore throat L AB: Routine Culture * Preventive Medicine: Counseling: C are goal follow-up plan: Counseling for abnormal BMI given Y es Above Normal BMI Follow-up D ietary management education, guidance, and counseling, Dietary needs education, Exercise promotion: strength training, Exercise promotion: stretching, Feeding regime, Giving encouragement to exercise, Lifestyle education regarding diet, Nutrition / feeding management, Nutrition therapy, Prescribed activity/exercise education, Prescribed diet education, Prescribed dietary intake, Special diet education, Weight monitoring , Intervention, Order not done: Medical or Other reason not done * Images: * The named appointment provid er may or may not be the originator of this progress note, and it is not deemed complete until electronically signed by the appointment provider. Sign off status: Pending * Provider: Kashmir Cabral MD Date: 09/19/2024 Generated for Brandi north/Frances/eTransmitting on: 1 09/19/2024 04:53 PM EST History and Physical Notes * HPI (History of Present Illness) Category Sub-Category Detail Notes COVID-19 Screening Questions Have you had any new onset fever, chills, cough, congestion, sore throat, shortness of breath, muscle aches?: Yes Sore Throat longer than 48 hours Examination Category Sub-Category Detail Notes General Examination GENERAL APPEARANCE: pleasant , well nourished, well developed, in no acute distress, calm and relaxed HEAD: atraumatic, normocep halic EYES: eomi, perrla, anicte kasia, conjugate EARS: normal NOSE: septum intact NECK/THYROID: no jugular venous [...] lymph no ron,spleen normal RECTAL EXAM: not examined PSYCH: alert, oriented ORAL CAVITY: normal, unremarkable
--- OUTSIDE RECORDS SUMMARY | 2025-07-19 16:53 | XMS_ITS | Clinical Summary ---
Author Organization [employer] Address [address] [place] [address] Care Team Providers Care Mastercam Programmer Name Role Phone Catie Perry DDS Unavailable [...] minutes following use. 473 mL 4 Active EPINEPHrine (Epipen-JR) 0.15 MG/0.3ML injection syringe DIRECTED INJECTION IF STUNG BY BY BEE 30 DAYS 5 Active Active Problems No known active problems Encounters Date Type Department Care Team Description 05/05/2025 8:00 AM EDT Office Visit [facility] [address] [place] [address] [place] Dental calculus (Primary Dx) from Last 3 Months Social [...] Sign Reading Time Taken Comments Blood Pressure 144/66 05/05/2025 8:08 AM EDT Pulse 68 05/05/2025 8:08 AM EDT Temperature - - Respiratory Rate - - Oxygen Saturation - - Inhaled Oxygen Concentration - - Weight - - Height - - Body Mass Index - - Plan of Treatment Upcoming Encounters Date Type Department Care Team (Late st Contact Info) Description 11/03/2025 8:00 AM EDT Office Visit [facility] [address] [place] [address] [place] Health Maintenance Due Date Last [...] 2011 Zoster Vaccines (1 of 2) 2011 COVID-19 Vaccine ( season) 2025 04/24/2024, 05/08/2023, 04/30/2022, Additional history exists Influenza Vaccine (#1) 2025 , 05/04/2023, 04/28/2022, Additional history exists Dental Oral Exam 11/03/2025 05/05/2025, , 02/19/2021 Dental Prophylaxis 11/03/2025 05/05/2025, 0 10/28/2024, 02/28/2021 Tobacco Screening 05/05/2026 05/05/2025 Dental X-Ray: Bitewings 05/06/2026 05/05/20, 05/10/2024, 02/19/2021 Dental X-Ray: Full Mouth 05/18/2027 024, 05/10/2024, 03/07/2021, Additional history exists DTaP/Tdap/Td Vaccines (3 - Td or Tdap) 03/12/2035 03/12/2025, 03/21/2022 RSV Patients and Patients Aged 60 years or older (1 - 1-dose 75+ series) 2036 HIB [...] Procedure Name Priority Date/Time Associated Diagnosis Comments PERIODIC ORAL EVALUATION - ESTABLISHED PATIENT Routine 05/05/2025 8:00 AM EDT INTRAORAL - PERIAPICAL FIRST RADIOGRAPHIC IMAGE Routine 05/05/2025 8:00 AM EDT BITEWINGS - 4 RADIOGRAPHIC IMAGES Routine 05/05/2025 8:00 AM EDT CASE PRESENTATION, DETAILED AND EXTENSIVE TREATMENT PLANNING Routine 05/05/2025 8:00 AM EDT ORAL HYGIENE INSTRUCTIONS Routine 2024 8:00 AM EDT PROPHYLAXIS - ADULT Routine 05/05/2025 8 :00 AM EDT INTRAORAL - PERIAPICAL EACH ADDITIONAL RADIOGRAPHIC IMAGE Routine 05/05/2025 8:00 AM EDT 20 DO COMPOSITE FILLING Routine 05/05/20 12:00 AM EDT 4 O COMPOSITE FILLING Routine 05/05/2025 12:00 AM EDT 3 LO COMPOSITE FILLING Routine 12:00 AM EDT PANORAMIC RADIOGRAPHIC IMAGE Routine 05/17/2024 9:30 AM EDT from Last 3 Months or Most Recently Relevant to Health Maintenance Insurance DENTAL - [facility] PARTIAL (MEDICAID) Care Teams Mastercam Programmer Relationship Specialty Start Date End Date Catie Perry DDS Resident Dental Investigations Manager 10/07/24
--- OUTSIDE RECORDS SUMMARY | 2025-07-19 16:53 | XMS_ITS | Data Portability ---
Author Organization [facility] [id number] Address [address] [place] [address] Assessment No assessment recorded. Plan of Treatment Reminders Order Date Submit Date Provider Last Modified By Organization Details Last Modified Time Details Appointments None recorded. Lab None recorded. Referral None recorded. Procedures None recorded. Surgeries None recorded. Imaging None recorded. Medication Orders triamcinolo ne acetonide 0.1 % topical cream 2022 023 [id number], [address] [place], [address], 19:17:27 Patient TargetsNo targets recorded. Patient Instructions Encounter Date Encounter Id Patient Instructions Last Modified By Organization Details Last Modified Time 09/13/2022 [id number] controlling eczema (adult) information [email or web address] Not available 09/13/2022 19:17:56 Reason for Referral None Reported. Procedures Surgical History Date Name Laterality Status Provider Name and Address Organization Details Recorded Time colonoscopy completed AUGUST FREYATIERNEY Mclaughlin [facility] 09/13/2022 18:46:19 Imaging Results None [...] temperature Respiratory rate Heart rate Oxygen saturation Systolic And Diastolic Provider Name and Address Organization Details Last Updated DateTime 185.42 cm 23.5 kg/m2 30244.4 4 g 98.6 [degF] 20 /min 88 /min 100 % 146/87 mm[Hg] AUGUST Marlow [facility] - [facility] 18:47:36 Social History Question Answer Notes LastModified by [employer] Details LastModified Time Tobacco Smoking Status Former [...] Functional Status Question Answer Note LastModified by [employer] ion Details LastModified Time Do you use [...] Diagnosis SNOMED-CT Code Diagnosis ICD10 Code Diagnosis IMO Codes Diagnosis Note [id number] [address] [place] [address] 04/07/2020 10:36:20 04/07/2020 11:45:08 [id number] Jaleel Vicente [place] [address] [facility] [address] [place] [address] 09/13/2022 18:35:59 09/13/2022 19:19:27 Eczema [id number] L30.9 d/w patient bathing/sh owering recommenda tionsUse [...] Name 09/27/2022 1 [facility] (O) [id number] Nicholas Overton [id number] 0 Nicholas Overton Notes Date Note Type Note Provider Name and Address Organization Details Recorded Time 09/13/2022 text/html ROS as noted in the HPI 62 yo malec/o itchy rash on legs and chest for 6 to 7 weeks no f/c/n/v uses soapDenies any new pets, foods, meds, supplements, soaps, detergents, hygeine products etcno known biteshas not been outside, near amin or near poison keyur/tick sources no fatigueno myalgia no known sick contactstried with out improvement Jaleel Vicente, DO [address] [place], [address], [place] - [facility] 09/13/2022 19:18:11
--- OUTSIDE RECORDS SUMMARY | 2025-07-19 16:53 | XMS_ITS | Patient Health Record ---
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 Brandon Cabral III Primary Care Provider Allergies Allergen (clinical drug ingredient) Drug/Non Drug Allergy documented on EMR Reaction Allergy Type Onset Date Status No Known Drug Allergy Unknown Drug Allergy Active No Known Food Allergy Unknown Drug Allergy Active Bee Sting Unknown Allergy Active Results Component Value Reference Range Notes Pathology Reviewed date:02/15/2025 03:54:59 PM Interpretation: Performing Lab:[facility], [address] [place] [phone] Notes/Report: ------ Name: Nicholas Overton Age/Sex: 64/M : 1960 Unit#: [id number] Attend Dr: Mark Licea MD Re02/03/25 Status : [facility] Location: HO.SSS Disch: ------ SPEC : [id number] RECD : 02/03/25-1009 STATUS: ESPERANZA AG NUM: [id number] LUANN: 02/03/25 [facility] DR: Mark Licea MD ENTERED: 02/03/25 SP TYPE: Surgical OTHR DR: Brandon Cabral [...] in 2 parts. A. Received in forma CellCentric labeled ?posterior hemorrhoid? is a portion of glabrous skin and anal mucosa measurin g 2.5 x 2.0 x 1.8 cm in greatest dimension. The skin surface is pink- singh, intact and wrin kled. The underside is red-singh and shaggy in appearance. Sectioning reveals a pink white cut surface with a few dilated, blood-filled vessels. Scientific Editor sections are submitt ed for microscopic examination, 2 pieces in cassette A. B. Received in forma jorge labeled ?anterior hemorrhoid? is a portion of glabrous skin and anal mucosa measurin g 2.0 x 1.9 x 1.5 cm in greatest dimension. The skin surface is pink- singh, intact and wrin kled. The underside is pink-singh and shaggy in appearance. Sectioning reveals a pink white cut surface with a few dilated, blood-filled vessels. Scientific Editor sections are submitt ed for microscopic examination, 2 pieces in cassette B. ([facility]) IHC S/NG Disclaimer NOTE: Unless otherwi se stated, all tissue is formalin-fixed and paraffin-embedded. Some or all of the immunohistochemical tests reported herein may have been developed and their performance characteristics determined by [facility]. They have not been cleared or appr patti by the U.S. Food and Drug Administration (FDA). However, the FDA has determined that such clearance or approval is not necessary. This laboratory is CONTINUED ON NEXT PAGE ------ Name: Nicholas Overton Age/Sex: 64/M : 1960 Unit#: [id number] Attend Dr: Mark Licea MD Re02/03/25 Status : [facility] Location: [facility] Disch: ------ SPEC : [id number] RECD : 02/03/25-0 STATUS: ESPERANZA AG NUM: [id number] LUANN: 02/03/25 [facility] DR: Mark Licea MD ENTERED: 02/03/25- 19 SP TYPE: Surgical OTHR DR: Brandon Cabral MD ORDERED: Silvia Cleary L3/2 IHC S/NG Disclaimer (Continued) certified under the Clinical Laboratory Improvement Amendments of 1988 (CLIA) as qualified to perform high comp lexity clinical laboratory testing. Copies To: Brandon Cabral MD [address] [place] [address] [address] [place], [place] [id number] Mark Licea MD [facility] [address] [place] [address] ------ Signed (signature on file) Daria Tabares MD 02/06/25 1124 ------ END OF REPORT Complete Blood Count Auto Di ff Reviewed date:04/24/2025 09:17:15 AM Interpretation: Performing Lab:[facility], [address] [place] [phone] Notes/Report: White Blood Count 7.3 4.8-10.8 X10*3/uL Red Blood Count 4.68 4.60-5.80 X10*6/uL Hemoglobin 14.0 14.0-18.0 g/dl Hematocrit 42.3 42.0-52.0 % Mean Corpuscular Volume 90.4 80.0-98.0 fL Mean Corpuscular Hemoglobin 29.9 27.0-33.0 pg Mean Corpuscular HGB Conc 33.1 31.0-36.0 g/dl Red Cell Distribution Width 13.1 11.0-16.0 % Platelet Count 248 160-400 X10*3/uL Mean Platelet Volume 9.9 9.4-12.4 fL Neutrophils Percent Auto 54.9 45-73 % Imm Gran Pct Auto 0.3 0.0-0.4 % Lymphocytes Percent Auto 32.7 20-40 % Monocytes Percent Auto 8.8 2-11 % Eosinophils Percent Auto 2.6 0-4 % Basophils Percent Auto 0.7 0-2 % NRBC Pct Auto 0.0 0.0-0.2 /100WBC Neutrophils Absolute Auto 4.0 2.0-8.3 x10*3/uL Imm Gran Abs Auto 0.02 0.00-0.03 X10*3/uL Lymphocytes Absolute Auto 2.4 1.2-4.9 X10*3/uL Monocytes Absolute Auto 0.6 0.1-1.2 X10*3/uL Eosinophils Absolute Auto 0.2 0.0-0.4 X10*3/uL Basophils Absolute Auto 0.1 0.0-0.2 X10*3/uL NRBC Abs Auto 0.000 0.0-0.012 X10*3/uL Comprehensive [place]. Panel Fa Reviewed date:04/24/2025 09:17:15 AM Interpretation: Performing Lab:[address] [phone] Notes/Report: Sodium 143 135-145 mmol/L Potassium 4.1 3.3-5.1 mmol/L Chloride 105 96-108 mmol/L Carbon Dioxide 29 22-29 mmol/L Anion Gap 13 12-20 Blood Urea Nitrogen 22 9-16 mg/dL Creatinine 1.01 0.5-1.4 mg/dL Estimated Glomerular Filt Rate > 60 Chronic Kidney Disease: Estimated GFR < 60 mL/min/1.73m2 Severe Kidney Disease: Estimated GFR < 15 mL/min/1.73m2 Glucose Fasting 103 60-99 mg/dL A fasting glucose from 100-125 mg/dl is considered impaired (pre-diabetes). Calcium 9.2 8.4-10.2 mg/dL Bilirubin Total 0.9 0.0-1.0 mg/dL Aspartate Amino Transferase 30 5-37 U/L Alanine Aminotransferase 25 0-40 U/L Total Protein 7.0 6.5-8.0 g/dL Albumin Level 4.4 3.5-5.0 g/dL Alkaline Phosphatase 74 39-117 U/L Lipid Panel Reviewed date:04/24/2025 09:17:15 AM Interpretation: Performing Lab:[facility], [address] [place] [phone] Notes/Report: Triglycerides 79 <150 mg/dL Desirable Triglyceride: less than 150 mg/dL Borderline High Triglyceride 150-199 mg/dL High Triglyceride: 200-499 mg/dL Very High Triglyceride: greater than or equal to 5OO mg/dL Cholesterol 218 <200 mg/dL Desirable Cholesterol: less than 200 mg/dL Borderline High Cholesterol: 200-239 mg/dL High Cholesterol: greater than 239 mg/dL LDL Cholesterol Calculated 149 <100 mg/dL Desirable LDL: less than 100 mg/dL Near Optimal/Above Optimal LDL: 110-129 mg/dL Borderline High LDL: 130-159 mg/dL High LDL: 160-189 mg/dL Very High LDL: greater than or equal to 190 mg/dL HDL Cholesterol 54 >40 mg/dL Desirable HDL: greater than 40 mg/dL Note: This HDL assay may give artificially low results in patients with liver disease. PSA,Total (Free>4and<10) Reviewed date:04/24/2025 09:17:15 AM Interpretation: Performing Lab:[facility], [address] [place] [phone] Notes/Report: PSA,Total (Free>4and<10) 3.84 0.00-4.00 ng/mL A Free PSA was not performed: The percentage of Free PSA can be used to enhance the differentiation of prostate cancer from benign prostatic disease in subjects whose PSA levels are between 4.0 and 10.0 ng/mL. For subjects whose PSA levels are below 4.0 or above 10.0 ng/mL, the risk of prostate cancer is determined on the basis of the PSA alone. Therefore the % Free PSA is recommended only for those subjects whose PSA levels are between 4.0 and 10.0 ng/mL. PSA methodology: Thurston Alinity i Chemiluminescent Microparticle Immunoassay (CMIA) Vitamin D 25-OH Total Reviewed date:04/24/2025 09:17:15 AM Interpretation: Performing Lab:[address] [phone] Notes/Report: Vitamin D 25-OH Total 114.2 >30 ng/mL Health Based Reference Values* < 20 ng/mL Deficient 20-30 ng/mL Insufficient > 30 ng/mL Sufficient *Akshat RIDDLE. N Engl J Med. 2007;357:266-280 There is no well-established upper level of normal vitamin D levels. Some laboratories use 50 ng/mL as an upper limit of normal. However, toxicity is patient-dependent and may occur at any level. Careful correlation with the patient's presentation is necessary and, if there is concern for vitamin D toxicity, treatment should be considered irrespective of the serum level. Care must be taken in interpreting Vitamin D results from different laboratories and methodologies. Published data demonstrated that results from patients undergoing hemodialysis may show a negative bias when tested with various automated 25-OH vitamin D assays when compared to LC-MS/MS. When testing samples from patients whose predominant form of Vitamin D is Vitamin D2, such as patients receiving Vitamin D2 supplementation, results that are subtherapeutic should be confirmed with another method such as LC-MS/MS. Reason For Referral Reason Large hemorrhoid ref ractory to steroids and citz baths ? excision or biopsy Diagnosis 1 Mass of anus (K62.89 ) Diagnosis 2 Hemorrhoids, externa l (K64.4) Referral Organization Brandon Cabral III, MD Referring Provider First Name Brandon Referring Provider Last Name Misha Referring Provider Speciality Internal edicine Referred Provider MARK LICEA Referred Provider Specialty Surgery Referral Priority Routine Referral Appointment Date 09/05/2024 Reason evaluate and treatme nt H/O tubular adenoma x 2 in 2019 Diagnosis 1 Tubular adenoma (D36 .9) Referral Organization Brandon Cabral III, MD Referring Provider First Name Brandon Referring Provider Last Name Misha Referring Provider Speciality Internal edicine Referred Provider DALLAS MCCLENDON Referred Provider Specialty Gastroentero logy General Notes Rizwana Alfonso CMA 05/15 10:18:27 AM > ref,demo.progress note faxed today, Rizwana Alfonso CMA 05/25/2025 01:40:19 PM >called Imelda ANDRADE spoke to [place] to make patient appt he is due for his 5-year colonoscopy. she stated pt needs to see Dr Mcclendon first for consult this appt was made for 10/30/2025 at 11:00am pt mailed and called with this appt information Referral Priority Routine Referral Appointment Date 10/30/2025 Medications Medication SIG (Take, Route, Frequency, Duration) [...] MOUTH EVERY DAY FOR 30 DAYS Active Immunizations Vaccine Route Administration Date Status [...] Influenza Vaccine Afluria IM Intramuscular 05/06/2024 Administered Tdap Unknown 03/12/2025 Administered COVID Moderna Bivalent Unknown 04/30/2022 Administered COVID-19 Moderna SPIKEVAX Unknown 04/24/2024 Administered COVID PFIZER Unknown 12/18/2020 Administered COVID PFIZER Unknown 11/27/2020 Administered COVID-19 Moderna SPIKEVAX Unknown 05/08/2023 Administered Social History Tobacco Use: Social History [...] Problem Status W/U Status Risk Notes Problem 7910738 Former smoker (Z87.891) Active confirmed He is highly motivated not to smoke. We discussed a plan for prevention of relapse in times of stress and illness. Problem 991635464 Tubular adenoma (D36.9) Active confirmed Gastroenterolog ist found 3 tubular adenomas on his recent colonoscopy. He will have a colonoscopy every 5 years which will be in the near future Problem 79111975 Hypertension (I10) Active confirmed His blood press ure has been normal and no change in his regimen was needed.He will be in the office in 72 hours and have his blood pressure checked again. Problem 970118884 Environmental allergies (Z91.09) Active confirmed He will have a trial of an antihistamine. He will return in one week. If there is no improvement. Problem 64606325 Vitamin D deficiency (E55.9) Active confirmed Problem 25331248 Hyperlipidemia, unspecified hyperlipidemia type (E78.5) Active confirmed His lipids are stable. No change in his regimen was made. We had a discussion about reduce the amount of animal fat and his diet. Problem 72857742 Femur fracture (S72.90XA) Active confirmed He continues to have occasional pain at the fracture site, but it is improving. Problem 0172720 Helicobacter pylori (H. pylori) (A04.8) Active confirmed He is using a nondrowsy antihistamine when working outdoors. Problem 231109873 Benign prostatic hyperplasia with lower urinary tract symptoms (N40.1) Active confirmed He arises from sleep once or twice a night to urinate. We have discussed lifestyle modification as a way to control nocturia. Without medication. Problem 24447621 Constipation, unspecified constipation type (K59.00) Active confirmed History constipation has resolved with use of laxatives and fiber. Problem 738224605 Sensorineural hearing loss (SNHL) of both ears (H90.3) Active confirmed He is wearing h is hearing aids and is pleased with their affect. 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 Problem 46873377 Hemorrhoids, external (K64.4) Active confirmed The mass is unchanged and has not really spondylytic to topical steroids. He is being referred back to surgery for reconsideration of excision and an opinion as to its true nature. Problem 770504654 Mass of anus (K62.89) Active confirmed The anal lesion has not change it's appearance despite aggressive treatment with steroids.I have referred him back to surgery for second opinion. Vital Signs Heart Rate 71 /min 07/19/2025 Temperature 97.4 degrees Fahrenheit 07/19/2025 Blood pressure diastolic 76 mm Hg 07/19/2025 Height 72 in 07/19/2025 Blood pressure systolic 130 mm Hg 07/19/2025 Weight 185 lbs 07/19/2025 BMI 25.09 kg/m2 07/19/2025 Encounters Encounter Location Date Provider Diagnosis Brandon Cabral III, MD [address] [place] [address] [place] [address] 07/19/2025 Brandon Cabral Hypertension I10 and Sore throat J02.9 Brandon Cabral III, MD [address] [place] [address] [place] [address] 08/12/2024 Brandon Cabral Allergy to bee sting Z91.030 ; Hypertension I10 ; Former smoker Z87.891 ; Benign prostatic hyperplasia with lower urinary tract symptoms N40.1 and Mass of anus K62.89 Brandon Cabral III, MD [address] [place] [address] [place] [address] 08/15/2024 Brandon Cabral Allergy to bee sting Z91.030 ; Hemorrhoids, external K64.4 and Encounter for immunization Z23 Brandon Cabral III, MD [address] [place] [address] [place] [address] 09/05/2024 Brandon Cabral Hemorrhoids, externa l K64.4 ; Hypertension I10 ; Former smoker Z87.891 ; Benign prostatic hyperplasia with lower urinary tract symptoms N40.1 ; Environmental allergies Z91.09 and Sensorineural hearing loss (SNHL) of both ears H90.3 Brandon Cabral III, MD [address] [place] [address] [place] [address] 11/03/2024 Brandon Cabral Hemorrhoids, externa l K64.4 ; Hypertension I10 ; Former smoker Z87.891 ; Sensorineural hearing loss (SNHL) of both ears H90.3 ; Constipation, unspecified constipation type K59.00 and Hyperlipidemia, unspecified hyperlipidemia type E78.5 Brandon Cabral III, MD [address] [place] [address] [place] [address] 12/01/2024 Brandon Cabral Hemorrhoids, externa l K64.4 ; Constipation, unspecified constipation type K59.00 ; Hyperlipidemia, unspecified hyperlipidemia type E78.5 ; Sensorineural hearing loss (SNHL) of both ears H90.3 ; Benign prostatic hyperplasia with lower urinary tract symptoms N40.1 ; Hypertension I10 and Former smoker Z87.891 Brandon Cabral III, MD [address] [place] [address] [place] [address] 12/05/2024 Brandon Cabral Hypertension I10 ; Former smoker Z87.891 ; Sensorineural hearing loss (SNHL) of both ears H90.3 ; Environmental allergies Z91.09 ; Constipation, unspecified constipation type K59.00 and Mass of anus K62.89 Brandon Cabral III, MD [address] [place] [address] [place] [address] 05/11/2025 Brandon Cabral Hypertension I10 ; Former smoker Z87.891 ; Tubular adenoma D36.9 ; Environmental allergies Z91.09 ; Benign prostatic hyperplasia with lower urinary tract symptoms N40.1 and Sensorineural hearing loss (SNHL) of both ears H90.3 Brandon Cabral III, MD [address] [place] [address] [place] [address] 09/05/2024 Brandon Cabral III, MD [address] [place] [address] [place] [address] 12/01/2024 Brandon Cabral III, MD [address] [place] [address] [place] [address] 03/20/2025 Brandon Cabral Hypertension I10 Brandon Cabral III, MD [address] [place] [address] [place] [address] 03/20/2025 Brandon Cabral Hypertension I10 ; Benign prostatic hyperplasia with lower urinary tract symptoms N40.1 ; Vitamin D deficiency E55.9 ; Tubular adenoma D36.9 and Hyperlipidemia, unspecified hyperlipidemia type E78.5 Brandon Cabral III, MD [address] [place] [address] [address] [place] [address] 05/16/2025 Brandon Cabral III, MD [address] [place] [address] [place] [address] 05/16/2025 Brandon Cabral III, MD [address] [place] [address] [place] [address] 05/16/2025 Brandon Cabral III, MD [address] [place] [address] [place] [address] 05/22/2025 Brandon Cabral Assessments Encounter Date Diagnosis (ICD Code) Assessment Notes Treatment Notes Treatment Clinical Notes 07/19/2025 Hypertension (ICD-10 - I10) His blood pressure has been normal and no change in his regimen was needed.He will be in the office in 72 hours and have his blood pressure checked again. 08/12/2024 Hypertension (ICD-10 - I10) His blood [...] in times of stress and illness. 05/11/2025 Hypertension (ICD-10 - I10) His blood [...] checked again. 03/20/2025 Hypertension (ICD-10 - I10) 07/19/2025 Sore throat (ICD-10 - J02.9) 08/12/2024 Former smoker (ICD-10 - Z87.891) He [...] aids and is pleased with their affect. 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 He will have a colonoscopy every 5 years which will be in the near future 03/20/2025 Benign prostatic hyperplasia with lower urinary tract symptoms (ICD-10 - N40.1) 08/12/2024 Benign prostatic hyperplasia with lower urinary [...] week. If there is no improvement. 05/11/2025 Environmental allergies (ICD-10 - Z91.09) He will have a trial of an antihistamine. He will return in one week. If there is no improvement. 03/20/2025 Vitamin D deficiency (ICD-10 - E55.9) 08/12/2024 Mass of anus (ICD-10 - K62.89) [...] resolved with use of laxatives and fiber. 05/11/2025 Benign prostatic hyperplasia with lower urinary tract symptoms (ICD-10 - N40.1) He arises from sleep once or twice a night to urinate. We have discussed lifestyle modification as a way to control nocturia. Without medication. 03/20/2025 Tubular adenoma (ICD-10 - D36.9) 09/05/2024 Sensorineural hearing loss (SNHL) of both [...] him back to surgery for second opinion. 05/11/2025 Sensorineural hearing loss (SNHL) of both ears (ICD-10 - H90.3) He is wearing his hearing aids and is pleased with their affect. 03/20/2025 Hyperlipidemia, unspecified hyperlipidemia type (ICD-10 - E78.5) His lipids are stable. No change in his regimen was made. We had a discussion about reduce the amount of animal fat and his diet. 12/01/2024 Former smoker (ICD-10 - Z87.891) He is highly motivated not to smoke. We discussed a plan for prevention of relapse in times of stress and illness. Plan Of Treatment Pending Test Test Name Order Date Routine Culture 07/19/2025 Next Appt Details Provider Name:Brandon Cabral , 09/14/2025 11:00:00 AM, [address] [place] [address] [address], [place], [address], Provider Name:Brandon Cabral , 05/14/2026 03:00:00 PM, [address] [place] [address] [address], [place], [address], Insurance Providers Payer Name Payer Address Payer Phone Subscriber Number Group Number Insured Name Patient Relationship to Insured Coverage Start Date Coverage End Date [employer] [address] [address] [place] [address] [id number] Nicholas Overton Self - patient is the insured Medical (General) History Medical History History ICD Code Hematochezia due to hemorrhoids T & A weight loss diarrhea former smoker tubular adenoma 2012 Benign prostatic hypertrophy Surgical History Surgery Date(Month/Year) Hemorrhoid removed 02/03/2025 colonoscopy, Dr. Mcclendon, [facility], 3 tubular adenomas 05/2020 colonoscopy 05/2013 tonsillectomy child left femur fracture 1979 Hospitalization History Reason Date(Month/Year) No history
--- OUTSIDE RECORDS SUMMARY | 2025-07-19 16:53 | XMS_ITS | Encounter Summary ---
Author Organization [employer] Address [address] [facility] [address] [place] [address] Care Team Providers Care Quickbooks Bookkeeper Name Role Phone Catie Perry DDS Unavailable Unavailabl e Encounter Details Date Type Department Care Team (Latest Contact Info) Description 02/19/[address] [facility] CONVERSIONS Dental, Provider, DDS Social History [...] Description 11/03/2025 8:00 AM EDT Office Visit [facility] [address] [place] [address] Tico Roger documented as of this encounter Visit Diagnoses Not on filedocumented in this encounter Care Teams Quickbooks Bookkeeper Relationship Specialty Start Date End Date Catie Perry DDS Resident Dental Domain Architect 10/07/24 documented as of this encounter
--- OUTSIDE RECORDS SUMMARY | 2025-07-19 16:54 | XMS_ITS | Clinical Summary ---
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
== END 2025-07-19 14:03 | disposition home or self-care (01) ==
LOC: HO.LNP 14:02
PROVIDERS: Visit Provider Internal Medicine Medical Oncology
DX: J02.9 Acute pharyngitis, unspecified (principal)
CPT/HCPCS: 87070